=== PATIENT | female | born 1940 | race Caucasian/White ===

== ENCOUNTER 2017-09-10 03:59 | Emergency (ER) | payer MEDICARE ==
[2017-09-10 04:34] LABS: #Basophils 0.1 thou/uL (0.0-0.2); #Eosinphils 0.2 thou/uL (0.0-0.7); #Lymphocytes 2.4 thou/uL (1.20-3.40); #Monocytes 0.5 thou/uL (0.11-0.59); %Basophils 0.9 % (0.0-1.0); %Eosinophils 3.4 % (0.0-10.0); %Lymphocytes 33.2 % (21.0-51.0); %Neutrophils 55.6 % (42.0-75.0); Hemoglobin 11.7 g/dL (12.0-16.0); Mean Corpuscular HGB CONC 34.1 g/dL (32.0-36.0); Mean Corpuscular Hemoglobin 33.8 pg (27.0-31.0); Mean Corpuscular Volume 99.1 fl (81.0-99.0); Mean Platelet Volume 10.4 fL (7.4-10.4); Platelet Count 140 thou/uL (130-400); RBC Distribution Width 12.5 % (11.5-14.5); Red Blood Cell (RBC) Count 3.46 mill/uL (4.20-5.40); White Blood Cell (WBC) Count 7.2 thou/uL (4.8-10.8)
[2017-09-10] MEDS ORDERED: Amlodipine 5 MG TAB ONE (04:43)
[2017-09-10] MEDS ORDERED: CALCIUM GLUCONATE 25 GM TUBE ONE (04:44)
[2017-09-10 04:56] LABS: ALT (SGPT) 43 U/L (8-55); AST (SGOT) 43 U/L (5-34); Albumin 3.7 g/dL (3.4-4.8); Alkaline Phosphatase 72 U/L (40-150); Anion Gap 18 mmol/L (10-20); BUN (Urea Nitrogen) 26 mg/dL (9.8-20.1); Bilirubin, Total 0.3 mg/dL (0.2-1.2); Calc. Creatinine Clearance 0 mL/min (70-130); Calcium 8.9 mg/dL (7.8-10.44); Carbon Dioxide 21 mmol/L (23-31); Chloride 105 mmol/L (98-107); Estimated GFR-MDRD 34; Globulin 3.3 g/dL (2.4-3.5); Glucose 219 mg/dL (83-110); Lipase 40 U/L (8-78); Potassium 4.5 mmol/L (3.5-5.1); Sodium 139 mmol/L (136-145)
[2017-09-10 04:59] LABS: CKMB 1.3 ng/mL (0-6.6); Troponin I 0.023 ng/mL (< 0.028)
[2017-09-10] MEDS ORDERED: Carvedilol 25 MG TAB PO SCH (05:15)
--- NOTE | 2017-09-10 08:07 | RAD ---
PORTABLE CHEST 1 VIEW: DATE: 09/10/17. TIME: 4:56 a.m. HISTORY: Shortness of breath. FINDINGS: Comparison is made with the exam of 02/25/15. There are changes of median sternotomy. The heart is enlarged. The lungs are expanded without confl uent areas of consolidation, pneumothorax, satya pulmonary edema, or large effusions. There is mild pulmonary vascular congestion. POS: [facility]
--- NOTE | 2017-10-03 18:01 | EKG ---
Test Reason : ABD PAIN Blood Pressure : / mmHG Vent. Rate : 064 BPM Atrial Rate : 065 BPM P-R Int : 000 ms QRS Dur : 088 ms QT Int : 456 ms P-R-T Axes : 000 008 082 degrees QTc Int : 470 ms Sinus Anterior infarct , age undetermined Abnormal ECG Confirmed by KELSIE HARLEY D.O. ([id number]), design editor BRIANA SALAZAR ([id number] on 10/03/2017 6:00:40 PM Referred By: VAL HARLEY Confirmed By:KELSIE HARLEY D.O.
== END 2017-09-10 07:15 | disposition home or self-care (01) ==
LOC: ERS 03:59
DX: K29.70 Gastritis, unspecified, without bleeding (principal); I25.10 Atherosclerotic heart disease of native coronary artery without angina pectoris; E11.9 Type 2 diabetes mellitus without complications; I10 Essential (primary) hypertension
CPT/HCPCS: 71045; 80053; 82553; 83605; 83690; 83880; 84484; 85025; 93005

== ENCOUNTER 2019-10-08 00:26 | Observation (INO) | payer MEDICARE ==
[2019-10-08 00:48] LABS: #Basophils 0.1 thou/uL (0.0-0.2); #Eosinphils 0.2 thou/uL (0.0-0.7); #Lymphocytes 1.8 thou/uL (1.20-3.40); #Neutrophils 12.8 thou/uL (1.40-6.50); %Basophils 0.5 % (0.0-1.0); %Lymphocytes 11.1 % (21.0-51.0); %Monocytes 6.1 % (0.0-10.0); %Neutrophils 81.3 % (42.0-75.0); Mean Corpuscular HGB CONC 33.2 g/dL (32.0-36.0); Mean Corpuscular Hemoglobin 32.5 pg (27.0-31.0); Mean Corpuscular Volume 97.6 fL (78.0-98.0); Platelet Count 130 thou/uL (130-400); RBC Distribution Width 12.1 % (11.5-14.5); Red Blood Cell (RBC) Count 3.99 mill/uL (4.20-5.40); White Blood Cell (WBC) Count 15.7 thou/uL (4.8-10.8)
[2019-10-08 01:08] LABS: ALT (SGPT) 36 U/L (8-55); AST (SGOT) 34 U/L (5-34); Albumin 3.9 g/dL (3.4-4.8); Alkaline Phosphatase 105 U/L (40-110); Anion Gap 13 mmol/L (10-20); BUN (Urea Nitrogen) 29 mg/dL (9.8-20.1); Bilirubin, Total 0.4 mg/dL (0.2-1.2); Calc. Creatinine Clearance 0 mL/min (70-130); Calcium 8.7 mg/dL (7.8-10.44); Carbon Dioxide 25 mmol/L (23-31); Chloride 105 mmol/L (98-107); Estimated GFR-MDRD 31; Globulin 2.9 g/dL (2.4-3.5); Glucose 174 mg/dL (83-110); Potassium 4.3 mmol/L (3.5-5.1); Protein, Total 6.8 g/dL (6.0-8.3); Sodium 139 mmol/L (136-145)
[2019-10-08 01:30] LABS: CKMB 1.1 ng/mL (0-6.6)
[2019-10-08] MEDS ORDERED: Furosemide 40 MG/4 ML VIAL ONE (02:13)
[2019-10-08] MEDS ORDERED: Aspirin Chewable 81 MG TAB ONE (02:13)
[2019-10-08 03:51] VITALS: BMI 34.6
[2019-10-08 04:40] LABS: Troponin I 0.034 ng/mL (< 0.028)
[2019-10-08 07:09] LABS: Troponin I 0.034 ng/mL (< 0.028)
[2019-10-08] MEDS ORDERED: Bisacodyl 5 MG TAB PO PRN (07:36)
[2019-10-08] MEDS ORDERED: HYDROcodone/Acetaminophen 5/325 mg Tablet PO PRN (07:36)
[2019-10-08] MEDS ORDERED: Ondansetron PF 4 MG/2 ML Vial IVP PRN (07:36)
[2019-10-08] MEDS ORDERED: Calcium Carbonate 500 MG ChewTAB PO PRN (07:36)
[2019-10-08] MEDS ORDERED: Ondansetron ODT 4 MG TAB PO PRN (07:36)
[2019-10-08] MEDS ORDERED: Acetaminophen 325 MG TAB PO PRN (07:36)
[2019-10-08] MEDS ORDERED: Docusate 100 MG CAP PO PRN (07:38)
[2019-10-08] MEDS ORDERED: Benzonatate 100 MG CAP PO PRN (07:38)
[2019-10-08] MEDS ORDERED: Labetalol HCl 100 MG/20 ML VIAL SLOW IVP PRN (07:38)
[2019-10-08] MEDS ORDERED: Melatonin 3 MG TAB PO PRN (07:38)
[2019-10-08] MEDS ORDERED: diphenhydrAMINE 25 MG CAP PO PRN (07:38)
--- NOTE | 2019-10-08 08:17 | RAD ---
PORTABLE CHEST ONE VIEW: HISTORY: Chest pain. Shortness of breath. COMPARISON: 09/10/2017 FINDINGS: Cardiomegaly with bilateral vascular congestion. Left sided implantable device. Postop midline sterno willa. Minimal stable increased linear and interstitial markings. IMPRESSION: Cardiomegaly with bilateral vascular congestion with little change from prior study. No significant n ew process. POS: [facility]
[2019-10-08] MEDS: Fenofibrate Nanocrystallized 145 MG TAB PO SCH (08:55)
[2019-10-08] MEDS: Aspirin 325 MG TAB PO SCH (08:55)
[2019-10-08] MEDS: Metoprolol Tartrate 25 MG TAB PO SCH ×2 (08:55→09:06)
[2019-10-08] MEDS: Famotidine 20 MG TAB PO SCH ×2 (08:56→20:05)
[2019-10-08] MEDS ORDERED: ADENOSINE 60 MG/20 ML VIAL ONE (13:14)
[2019-10-08] MEDS ORDERED: Furosemide 40 MG/4 ML VIAL SLOW IVP SCH (14:00)
[2019-10-08 14:22] LABS: Bacteria/HPF 3+ HPF (None Seen); Bilirubin Negative (Negative); Blood, Urine 1+ (Negative); Clarity Extra Turbid (Clear); Glucose, Urine (Dipstick) Normal (Negative); Leukocyte 500 Leu/uL (Negative); Nitrite Negative (Negative); Protein, Urine (Dipstick) 20 mg/dL (Neg-Trace); Squamous Epithelial 0-3 HPF (0-3); Urobilinogen Normal mg/dL (Less than 2); WBC/HPF Greater than 50 HPF (0-3)
[2019-10-08 14:29] LABS: Urine Culture Reflex Yes Yes
[2019-10-08] MEDS ORDERED: cefTRIAXone\\ROCEPHIN 1 GM in Sodium Chloride 0.9% 100 ML IVPB SCH (15:00)
--- NOTE | 2019-10-08 15:06 | HP ---
PRIMARY CARE PROVIDER: Joselyn Lazo MD CHIEF COMPLAINT: Shortness of breath and chest pain. HISTORY OF PRESENT ILLNESS: Ms. Christian is a pleasant 79-year-old lady, who was seen at [facility] on 10/08/2019. She reports that around 2130 hours yesterday she started having chest pain and shortness of breath. She was resting at that time. She reports having a similar episode in March or February of 2019. She was in a different state at that time, and reports having a stress test. She describes the pain as pressure-like sensation below both breasts, that is across her chest. It is nonradiating. She does report bilateral shoulder pain, but this is chronic. She also reports shortness of breath as well as new lower extremity edema. She denies any history of congestive heart failure. She received furosemide in the emergency room and reports improvement. REVIEW OF SYSTEMS: All systems were reviewed and found to be negative except for the pertinent positives mentioned above. PAST MEDICAL HISTORY: 1. Coronary artery disease. 2. Diabetes mellitus, type 2. 3. Hypertension. 4. Stage 3 chronic kidney disease. PAST SURGICAL HISTORY: 1. Coronary artery bypass graft. 2. Cholecystectomy. 3. Hysterectomy. PSYCHIATRIC HISTORY: Anxiety and seasonal depression. SOCIAL HISTORY: The patient denies tobacco use, alcohol use, or recreational drug use. FAMILY HISTORY: No family history of premature coronary artery disease. ALLERGIES: NO KNOWN DRUG ALLERGIES. CURRENT MEDICATIONS: These need to be clarified, but in the past, the patient was on: 1. Aspirin. 2. Pepcid. 3. Fenofibrate. 4. Metformin. 5. Metoprolol. PHYSICAL EXAMINATION: GENERAL: On examination, Ms. Christian is awake and alert, not in acute distress. VITAL SIGNS: Blood pressure is 143/65, pulse 100, respiratory rate 16, and oxygen saturation 100% on supplemental oxygen. She is afebrile. BMI is 34.7. EYES: No scleral icterus. No conjunctival pallor. ENT: Moist mucosal membranes. No oropharyngeal erythema or exudates. NECK: Supple, nontender, trachea is midline. RESPIRATORY: Accessory muscles of breathing are not active. Chest wall movements are symmetric bilaterally. Lungs are clear to auscultation without wheeze, rhonchi, or crepitations. CARDIOVASCULAR: S1 and S2 are heard, regular. Peripheral pulses palpable. ABDOMEN: Soft, nontender, bowel sounds are heard. NEUROLOGIC: Cranial nerves 2 through 12 are intact. MUSCULOSKELETAL: Power is 5/5 in all 4 extremities. SKIN: No rashes. She has bilateral lower extremity edema. LYMPHATIC: No cervical lymphadenopathy. PSYCHIATRIC: Normal mood, normal affect, the patient is oriented to person, place, and time. LABORATORY DATA: Ms. Christian's labs and investigations were reviewed. I reviewed her electrocardiogram, which shows normal sinus rhythm, premature ventricular complexes, no ST changes to suggest an acute coronary syndrome. I also reviewed her chest x-ray, which shows cardiomegaly with bilateral vascular congestion. She has elevated BNP of 975.5. Electrolytes are normal. Creatinine is elevated at 1.59, it was 1.58 on 10/04/2019. Troponin-I is in the indeterminate range at 0.034. LFTs are unremarkable. She has leukocytosis with 15,700 white cells, of which 81% are neutrophils. Hemoglobin and platelet count are normal. Urinalysis is positive for leukocyte esterase. Bacteria are also present in the urine. ASSESSMENT AND PLAN: Ms. Christian is a pleasant 79-year-old lady, who was seen at [facility] on 10/08/2019. Her problem list includes: 1. Chest pain: Ms. Christian is presenting with chest pain. She will be admitted to the hospital for telemetry monitoring. Her troponins are in the indeterminate range. I will obtain nuclear stress test. 2. Shortness of breath: Her presentation is consistent with acute congestive heart failure. We will treat her with furosemide and obtain 2D echocardiogram. Cardiology Service also being consulted for opinion and help with management. 3. Urinary tract infection: She will be started on ceftriaxone, I will check her urine culture and adjust antibiotics accordingly. 4. Diabetes mellitus, type 2: I will start her on Accu-Cheks and insulin sliding scale. 5. Hypertension: I will start her on home medications once clarified, monitor vital signs and titrate antihypertensives as needed. Many thanks for allowing me to participate in your patient's care. Please feel free to contact me with any questions or concerns. LEVEL OF RISK: High. LEVEL OF COMPLEXITY: High. Job ID: [id number]
--- NOTE | 2019-10-08 15:22 | NM ---
NUCLEAR MEDICINE CARDIAC SPECT WITH EF AND WALL MOTION: HISTORY: Chest pain. Shortness of breath. Prior coronary artery disease. COMPARISON: 03/01/2015 TECHNIQUE: Nuclear adenosine cardiac SPECT is performed. The patient was injected with 29.9 millicuries technetium 99m sestamibi intravenously for stress imag es and the patient was injected with 9.8 millicuries technetium 99m sestamibi intravenously for resti ng images. FINDINGS: There is some minimal decreased activity in the inferior-posterior wall, possibly representing some m ild infarct changes of a scar. No scan evidence for ischemia. TID: 1.05 LHR: 0.61 EDV: 152 mL EJECTION FRACTION: 47% MYOCARDIAL PERFUSION WALL MOTION: Posterior-inferior wall hypokinesis. IMPRESSION: 1. No scan evidence for overt ischemia. 2. Increased end diastolic volume with 47% ejection fraction and some posterior-inferior wall hypokin esis. POS: [facility]
[2019-10-08] MEDS ORDERED: HumaLOG 300 UNITS/3 ML VIAL SC PRN (17:59)
[2019-10-08] MEDS ORDERED: Dextrose 5% in Water 1,000 ML IV PRN (17:59)
[2019-10-08] MEDS ORDERED: Dextrose 50% Abboject 50 ML SYRINGE SLOW IVP PRN (17:59)
--- NOTE | 2019-10-08 23:44 | CON ---
DATE OF CONSULTATION: HISTORY OF PRESENT ILLNESS: Ms. Karoline Christian is a pleasant 79-year-old white female, who has had 2 previous bypass surgeries. She underwent cardiac catheterization at [facility] in June 2017. This revealed ejection fraction of 50% with inferior hypokinesis. The LAD was totally occluded in its midportion. The circumflex had a 70% 1st obtuse marginal stenosis and the right coronary artery was totally occluded and filled via collaterals from the left. DING to LAD was patent; however, all of her vein grafts were occluded. She also states that approximately 15 months ago that she went to an emergency room in [place] where she was living at that time with chest pain and had a stent placed. She returned for followup to see Dr. Craft 2 days ago. She had been told that she had kidney disease and she stopped taking all of her medications for a year 2 days before being seen. At times, she would feel like "racing heart that would wake her up at night." Last night, she was supine in bed, trying to go to sleep and became acutely short of breath. After 2 hours of the shortness of breath, she went to the emergency room, was given intravenous Lasix and had dramatic improvement in her shortness of breath. Chest x-ray revealed cardiomegaly with bilateral vascular congestion. With this shortness of breath, she had some mild chest discomfort, but the predominant symptom was shortness of breath. Today, she underwent a Cardiolite scan, which revealed posterior-inferior wall hypokinesis and no evidence of ischemia. This is consistent with the totally occluded right coronary artery. Echocardiogram is pending, but has been ordered. PAST MEDICAL HISTORY: Coronary artery disease, hypertension, hyperlipidemia, transient ischemic attack, diabetes, history of myocardial infarction. MEDICATIONS: 1. Aspirin 81 daily. 2. Carvedilol 3.125 b.i.d. 3. Plavix 75 mg at bedtime. 4. Zetia at bedtime. 5. Rosuvastatin, unknown dose daily. 6. Insulin. 7. Sertraline 150 q.i.d. 8. Januvia 1 daily. ALLERGIES: PNEUMOCOCCAL VACCINE. OPERATIONS: Two bypass surgeries, cholecystectomy, hysterectomy, lumbar surgery. SOCIAL HISTORY: She does not currently smoke. PHYSICAL EXAMINATION: VITAL SIGNS: Blood pressure 115/58, pulse 54. HEENT: PERRL. NECK: Supple. CHEST: Reveals crackles at the right base. CARDIOVASCULAR: S1 and S2 normal without any S3, S4, or murmurs. ABDOMEN: Normal bowel sounds without tenderness or organomegaly. EXTREMITIES: Revealed no clubbing, cyanosis, or edema. NEUROLOGIC: Grossly intact. SKIN: Warm and dry. LABORATORY DATA: Hemoglobin 13.0, hematocrit 39.0, white count 44070, platelets 130,000. Sodium 139, potassium 4.3, carbon dioxide 105, BUN 29, creatinine 1.59. Troponin I 0.034. BNP 975.5. Cholesterol 233, triglycerides 123, HDL 59, LDL 149 (apparently she only restarted medications within the last 3 or 4 days). IMAGING: EKG revealed probable junctional rhythm with a rate of 69 per minute, nonspecific ST changes. Cardiolite findings as noted above. Chest x-ray reveals cardiomegaly with increased pulmonary vascularity. IMPRESSION: 1. Coronary artery disease, status post 2 coronary artery bypass grafts and apparent stent placement over the last year. Her Cardiolite finding shows no definite ischemia and only hypokinesis of the inferior wall, which is consistent with her totally occluded right coronary artery. At last catheterization, she only had a patent left inferior mammary artery to the LAD with all vein grafts being occluded. 2. Hypertension. 3. Palpitations, currently would monitor from the office. 4. Currently undergoing evaluation for total right hip replacement by Dr. Nur. RECOMMENDATIONS: Echo is pending. She apparently needs to be on low-dose diuretics. I will start furosemide 20 mg q.a.m. We will continue to follow with you. I also have asked her to try to get the stent card, so that we can know exactly when that was placed. Job ID: [id number] [facility]
[2019-10-09 05:22] LABS: #Basophils 0.1 thou/uL (0.0-0.2); #Eosinphils 0.2 thou/uL (0.0-0.7); #Lymphocytes 2.4 thou/uL (1.20-3.40); #Monocytes 0.9 thou/uL (0.11-0.59); #Neutrophils 5.3 thou/uL (1.40-6.50); %Basophils 1.1 % (0.0-1.0); %Lymphocytes 26.6 % (21.0-51.0); %Monocytes 10.6 % (0.0-10.0); %Neutrophils 59.6 % (42.0-75.0); Hemoglobin 12.5 g/dL (12.0-16.0); Mean Corpuscular HGB CONC 31.9 g/dL (32.0-36.0); Mean Corpuscular Volume 97.2 fL (78.0-98.0); Mean Platelet Volume 11.3 fL (7.4-10.4); Platelet Count 127 thou/uL (130-400); Red Blood Cell (RBC) Count 4.02 mill/uL (4.20-5.40); White Blood Cell (WBC) Count 8.8 thou/uL (4.8-10.8)
[2019-10-09 05:45] LABS: Anion Gap 14 mmol/L (10-20); BUN (Urea Nitrogen) 35 mg/dL (9.8-20.1); Calc. Creatinine Clearance 33 mL/min (70-130); Calcium 8.2 mg/dL (7.8-10.44); Carbon Dioxide 30 mmol/L (23-31); Chloride 101 mmol/L (98-107); Estimated GFR-MDRD 28; Glucose 130 mg/dL (83-110); Potassium 3.5 mmol/L (3.5-5.1); Sodium 141 mmol/L (136-145)
[2019-10-09] MEDS: Famotidine 20 MG TAB PO SCH (08:51)
[2019-10-09] MEDS: Aspirin 325 MG TAB PO SCH (08:51)
[2019-10-09] MEDS: Fenofibrate Nanocrystallized 145 MG TAB PO SCH (08:52)
[2019-10-09] MEDS ORDERED: Furosemide 20 MG TAB PO SCH (09:00)
[2019-10-09 12:08] VITALS: TEMP 98.4
[2019-10-09 16:45] VITALS: BP 141/65
--- NOTE | 2019-10-10 01:08 | DIS ---
DATE OF ADMISSION: 10/08/2019 DATE OF DISCHARGE: 10/09/2019 PRIMARY CARE PROVIDER: Joselyn Lazo MD DISCHARGE DIAGNOSES: 1. Chest pain. 2. Chest pain, most likely secondary to musculoskeletal etiology. 3. Acute congestive heart failure, type unknown. 4. Urinary tract infection. CONDITION OF PATIENT ON THE DAY OF DISCHARGE: Stable. I assessed Ms. Christian on the day of discharge. She denies any chest pain or shortness of breath. Vital signs are stable. S1 and S2 are heard, regular. Lungs are clear to auscultation bilaterally. CONSULTATIONS DURING THIS HOSPITALIZATION: Cardiology, Dr. Armando. DISCHARGE MEDICATIONS: 1. Aspirin 81 mg daily. 2. Coreg 3.125 mg 2 times a day. 3. Plavix 75 mg daily. 4. Ezetimibe 10 mg at bedtime. 5. NovoLog FlexPen insulin as needed. 6. Lantus insulin 20 units at bedtime. 7. Rosuvastatin 40 mg at bedtime. 8. Zoloft 150 mg daily. 9. Januvia 25 mg daily. These were her home medications. New medications started during this hospitalization are: 1. Lasix 20 mg daily. 2. Macrobid 100 mg 2 times a day for 1 week. HOSPITAL COURSE: Ms. Christian is a pleasant 79-year-old lady, who was admitted to [facility] on October 08, 2019, for chest pain and shortness of breath. Please refer to my history and physical note dated October 08, 2019 for further details. She was seen by Cardiology Service. She improved with intravenous diuretics and was switched to oral diuretic. At the time of this dictation, preliminary urine culture is growing presumptive Escherichia coli. She was advised to follow up with primary care provider for final urine culture report. 2D echocardiogram was done during this hospitalization, and the result is pending as well. She was advised to follow up with primary care provider for the same. She had nuclear stress test, which did not show any evidence for ischemia. Left ventricular ejection fraction was 47%. Many thanks for allowing me to participate in your patient's care. Please feel free to contact me with any questions or concerns. DISCHARGE DESTINATION: Home. ACTIVITY: As tolerated. DIET: Diabetic, heart healthy, and low-sodium. Job ID: [id number]
[2019-10-10] MEDS ORDERED: Famotidine 20 MG TAB PO SCH (09:00)
== END 2019-10-09 16:45 | disposition home or self-care (01) ==
LOC: ERS 00:26 → 2SW 02:44
PROVIDERS: ADMIT Internal Medicine; ATTEND Internal Medicine
DX: I13.0 Hypertensive heart and chronic kidney disease with heart failure and stage 1 through stage 4 chronic kidney disease, or unspecified chronic kidney disease (principal); R07.9 Chest pain, unspecified; E11.22 Type 2 diabetes mellitus with diabetic chronic kidney disease; I50.9 Heart failure, unspecified; N18.3 Chronic kidney disease, stage 3 (moderate); I25.10 Atherosclerotic heart disease of native coronary artery without angina pectoris; I25.810 Atherosclerosis of coronary artery bypass graft(s) without angina pectoris; F41.8 Other specified anxiety disorders; N39.0 Urinary tract infection, site not specified; R00.2 Palpitations; I25.2 Old myocardial infarction; Z79.02 Long term (current) use of antithrombotics/antiplatelets; Z79.4 Long term (current) use of insulin; Z79.82 Long term (current) use of aspirin; Z79.899 Other long term (current) drug therapy; Z86.73 Personal history of transient ischemic attack (TIA), and cerebral infarction without residual deficits; Z88.7 Allergy status to serum and vaccine; Z90.49 Acquired absence of other specified parts of digestive tract; Z90.710 Acquired absence of both cervix and uterus; Z95.1 Presence of aortocoronary bypass graft; Z95.5 Presence of coronary angioplasty implant and graft
CPT/HCPCS: 71045; 78452; 80048; 80053; 81001; 82553; 82962 ×2; 83880; 84484 ×2; 85025 ×2; 87077; 87086; 87186; 93005; 93017; 93306; 94760; 96365; 96375; 96376; 97116; 97139; 99285; A9500; G0378 ×3; 36415; 36416; 96374; J0153; J0696; J1940; J3490; Q0163

== ENCOUNTER 2020-01-19 18:10 | Inpatient (IN) | payer MEDICARE, OTHER ==
[2020-01-19] MEDS ORDERED: Acetaminophen 500 MG TAB ONE (18:25)
[2020-01-19] MEDS ORDERED: Azithromycin 500 MG VIAL ONE (18:25)
[2020-01-19 18:52] LABS: #Basophils 0.1 thou/uL (0.0-0.2); #Eosinphils 0.1 thou/uL (0.0-0.7); #Lymphocytes 1.5 thou/uL (1.20-3.40); #Neutrophils 12.3 thou/uL (1.40-6.50); %Basophils 0.4 % (0.0-1.0); %Eosinophils 0.4 % (0.0-10.0); %Neutrophils 82.3 % (42.0-75.0); Hemoglobin 12.7 g/dL (12.0-16.0); Mean Corpuscular HGB CONC 32.7 g/dL (32.0-36.0); Mean Corpuscular Hemoglobin 32.9 pg (27.0-31.0); Mean Platelet Volume 11.2 fL (7.4-10.4); Platelet Count 129 thou/uL (130-400); RBC Distribution Width 12.9 % (11.5-14.5); Red Blood Cell (RBC) Count 3.87 mill/uL (4.20-5.40); White Blood Cell (WBC) Count 14.9 thou/uL (4.8-10.8)
--- NOTE | 2020-01-19 18:59 | RAD ---
Chest AP view INDICATION: Dyspnea COMPARISON: October 08, 2019 FINDINGS: Lungs: There is worsening perihilar interstitial prominence suspicious for underlying interstitial e sara Cardiac silhouette: There is worsening cardiomegaly Pulmonary vasculature: There is worsening moderate pulmonary vascular congestion Pleural spaces: There are tiny bilateral pleural effusions, left greater than right. Upper abdomen: No abnormality seen. Osseous structures: No acute osseous abnormality. Additional findings: The generator pack overlying left chest wall is stable appearing. Post-CABG cherise nge is stable appearing. Endovascular graft overlying the right heart border is stable appearing. IMPRESSION: Findings suspicious for [id number] CHF
[2020-01-19 19:22] LABS: ALT (SGPT) 24 U/L (8-55); AST (SGOT) 30 U/L (5-34); Albumin 3.7 g/dL (3.4-4.8); Alkaline Phosphatase 155 U/L (40-110); Anion Gap 17 mmol/L (10-20); BUN (Urea Nitrogen) 31 mg/dL (9.8-20.1); Bilirubin, Total 1.3 mg/dL (0.2-1.2); Calc. Creatinine Clearance 0 mL/min (70-130); Carbon Dioxide 19 mmol/L (23-31); Chloride 105 mmol/L (98-107); Estimated GFR-MDRD 29; Globulin 2.6 g/dL (2.4-3.5); Glucose 146 mg/dL (83-110); Potassium 4.4 mmol/L (3.5-5.1); Protein, Total 6.3 g/dL (6.0-8.3); Sodium 137 mmol/L (136-145)
[2020-01-19] MEDS ORDERED: cefTRIAXone\\ROCEPHIN 1 GM VIAL ONE (19:29)
[2020-01-19] MEDS ORDERED: Furosemide 40 MG/4 ML VIAL ONE (19:29)
--- NOTE | 2020-01-19 19:38 | PDOC.HHP ---
Hospitalist HPI - History of Present Illness shortness of breath, fever History of Present Illness: Patient is a 79 year old female with PMH CAD, CABG, systolic CHF, DM, sees Dr Craft (Dr Armando last hospitalization) who presents to ED for SOB x 3 days, nonproductive cough, malaise, weakness, febrile to 103 in ED, patient recieved abx and IVF, antiboitics, then got lasix once imaging/labs concerning for CHF. Patient had recent admission in Oct for CHF, had negative stress test, echo w/ ef 40-45 w/ LA dilation and multiple valvular disease, has history of CAD and CABG, in ED troponins elevated as well, lovenox and ASA started, patient to be admitted to telemetry. Covid test ordered and pending. Hospitalist ROS - Medication Medications: list reviewed, see nursing notes and A/P Hospitalist History - Past Medical History Other Medical History: CAD HTN HLD TIA DM CABG history of [place] - Past Surgical History Past Surgical History: reports: Cholecystectomy, CABG (x2), Hysterectomy Other Surgical History: back surgery - Family History Family History: reports: no pertinent history - Social History Smoking Status: Never smoker Drugs: reports: none Hospitalist Results - Labs Result Diagrams: 01/19/20 18:34 01/19/20 18:34 Lab results: WBC 14.9 thou/uL (4.8-10.8) H 01/19/20 18:34 Hgb 12.7 g/dL (12.0-16.0) 01/19/20 18:34 Hct 38.9 % (36.0-47.0) 01/19/20 18:34 MCV 101.0 fL (78.0-98.0) H 01/19/20 18:34 Plt Count 129 thou/uL (130-400) L 01/19/20 18:34 Neutrophils % 82.3 % (42.0-75.0) H 01/19/20 18:34 Sodium 137 mmol/L (136-145) 01/19/20 18:34 Potassium 4.4 mmol/L (3.5-5.1) 01/19/20 18:34 Chloride 105 mmol/L (98-107) 01/19/20 18:34 Carbon Dioxide 19 mmol/L (23-31) L 01/19/20 18:34 BUN 31 mg/dL (9.8-20.1) H 01/19/20 18:34 Creatinine 1.72 mg/dL (0.6-1.1) H 01/19/20 18:34 Glucose 146 mg/dL (83-110) H 01/19/20 18:34 Lactic Acid 2.7 mmol/L (0.5-2.2) H 01/19/20 18:34 Calcium 8.0 mg/dL (7.8-10.44) 01/19/20 18:34 Total Bilirubin 1.3 mg/dL (0.2-1.2) H 01/19/20 18:34 AST 30 U/L (5-34) 01/19/20 18:34 ALT 24 U/L (8-55) 01/19/20 18:34 Alkaline Phosphatase 155 U/L (40-110) H 01/19/20 18:34 Troponin I 0.412 ng/mL (< 0.028) H* 01/19/20 18:34 B-Natriuretic Peptide 1654.5 pg/mL (0-100) H 01/19/20 18:34 Serum Total Protein 6.3 g/dL (6.0-8.3) 01/19/20 18:34 Albumin 3.7 g/dL (3.4-4.8) 01/19/20 18:34 Additional comment: VITAL SIGNS Claire January 19, 2020 19:34 RICHARD Goldman, Sonia BP: 105/67 MAP: 79 Pulse: 86 Resp: 21 Temp: 101.8 (Oral) Pain: 0 O2 sat: 98 on (2L Oxygen) Time: 01/19/2020 19:34. CXr w/ cardiomegaly and post CABG findings, vascular congestion XR Chest 1 View Portable Observe DT: Claire January 19, 2020 18:21 CXRP Chest AP view INDICATION: Dyspnea COMPARISON: October 08, 2019 FINDINGS: Lungs: There is worsening perihilar interstitial prominence suspicious for underlying interstitial e sara Cardiac silhouette: There is worsening cardiomegaly Pulmonary vasculature: There is worsening moderate pulmonary vascular congestion Pleural spaces: There are tiny bilateral pleural effusions, left greater than right. Upper abdomen: No abnormality seen. Osseous structures: No acute osseous abnormality. Additional findings: The generator pack overlying left chest wall is stable appearing. Post-CABG cherise nge is stable appearing. Endovascular graft overlying the right heart border is stable appearing. IMPRESSION: Findings suspicious for [id number] CHF Reported By: Moustapha Ferrara - EKG Interpretation EKG: NSR [address] changes or dropped beats ,QTc 410s, MN 110s Hospitalist H&P A/P - Plan Plan: Patient is a 79 year old female with PMH CAD, CABG, systolic CHF, DM, sees Dr Craft (Dr Armando last hospitalization) who presents to ED for SOB x 3 days, nonproductive cough, malaise, weakness, febrile to 103 in ED. # acute and chronic systolic history of CHF - echo last admission w/ EF 40-45% and disease of all 4 valves, Dr Armando saw previously and had negative stress test - consult cardiology given elevated troponin and acute and chronic chf CHF - start lasix 40mg IV BID, (on lasix 20mg PO daily since last admission) - trend troponin - ASA, lovenox until NSTEMI ruled out by cardiology, continue home coreg, plavix , statin # possible pneumonia and/or covid rule out # sepsis due to possible pneumonia or covid infection - continue abx (azithro/ceftriaxone), follow cultures, follow covid rule out test # elevated troponin - likely secondary to CHF exacerbation, consult cardiology and continue BELLA with meds as above # history of CAD - as above # HTN - PRN medications ordered, continue home meds # palpitaitons - no diagnoses as of last admission # DM - hold home januvia, ezetimibe, continue home lantus, SSI ordered # mood disorder - continue home meds # thrombocytopenia - noted, trend CBC monitor closely while on anticoagulation # elevated lactic acid - rule out sepsis as above, and treat CHF as above # ADAN - rule out sepsis as above, possibly an element of prerenal ADAN, trend BMP and I/Os and continue lasix # DVT ppx - lovenox, asa, plavix # GI ppx code status - full
[2020-01-19 19:40] LABS: CKMB 1.1 ng/mL (0-6.6)
[2020-01-19 19:43] LABS: Protein, Urine (Dipstick) > or equal to 300 mg/dL (Neg-Trace)
[2020-01-19 19:45] LABS: Clarity Hazy (Clear)
[2020-01-19 19:46] LABS: Bilirubin Unable to Interpret (Negative); Glucose, Urine (Dipstick) Unable to Interpret mg/dL (Negative); Leukocyte Large Leu/uL (Negative); Nitrite Unable to Interpret (Negative); Urobilinogen UNABLE TO INTERPRET mg/dL (Less than 2)
[2020-01-19 19:48] LABS: Blood, Urine Moderate (Negative)
[2020-01-19] MEDS ORDERED: Enoxaparin Sodium 100 MG/ML SYRINGE ONE (19:48)
[2020-01-19] MEDS ORDERED: Aspirin 325 MG TAB ONE (19:48)
[2020-01-19 19:51] LABS: WBC/HPF Greater Than 50 HPF (0-3)
[2020-01-19 19:52] LABS: Bacteria/HPF 4+ HPF (None Seen)
[2020-01-19] MEDS ORDERED: Dextrose 50% Abboject 50 ML SYRINGE SLOW IVP PRN (21:08)
[2020-01-19] MEDS ORDERED: Dextrose 5% in Water 1,000 ML IV PRN (21:08)
[2020-01-19] MEDS ORDERED: Labetalol HCl 100 MG/20 ML VIAL SLOW IVP PRN (21:09)
[2020-01-19] MEDS ORDERED: Ondansetron PF 4 MG/2 ML Vial IVP PRN (21:09)
[2020-01-19] MEDS ORDERED: Promethazine HCl 12.5 MG in Sodium Chloride 0.9% 50 ML IVPB PRN (21:09)
[2020-01-19] MEDS ORDERED: hydrALAZINE 20 MG/ML VIAL SLOW IVP PRN (21:09)
[2020-01-19] MEDS ORDERED: cloNIDine 0.1 MG TAB PO PRN (21:09)
[2020-01-19] MEDS ORDERED: Morphine 2 MG/ML SYRINGE SLOW IVP PRN (21:09)
[2020-01-19] MEDS ORDERED: Guaifenesin DM 100-10/5 ML UDCUP PO PRN (21:12)
[2020-01-19] MEDS ORDERED: HYDROcodone/Acetaminophen 5/325 mg Tablet PO PRN (21:12)
[2020-01-19] MEDS ORDERED: Senokot S 8.6-50 MG TAB PO PRN (21:12)
[2020-01-19] MEDS ORDERED: Bisacodyl 5 MG TAB PO PRN (21:12)
[2020-01-19] MEDS ORDERED: Bisacodyl 10 MG SUPP PR PRN (21:12)
[2020-01-19 22:22] LABS: Lactic Acid 1.1 mmol/L (0.5-2.2)
[2020-01-19 22:36] LABS: Troponin I 0.449 ng/mL (< 0.028)
[2020-01-20 02:11] LABS: Critical Call Chem Troponin I RESULT DECREASING; Troponin I 0.365 ng/mL (< 0.028)
[2020-01-20 05:11] LABS: #Basophils 0.1 thou/uL (0.0-0.2); #Eosinphils 0.1 thou/uL (0.0-0.7); #Lymphocytes 0.9 thou/uL (1.20-3.40); #Monocytes 0.9 thou/uL (0.11-0.59); #Neutrophils 9.4 thou/uL (1.40-6.50); %Basophils 0.5 % (0.0-1.0); %Eosinophils 0.7 % (0.0-10.0); %Lymphocytes 8.2 % (21.0-51.0); %Monocytes 7.5 % (0.0-10.0); %Neutrophils 83.1 % (42.0-75.0); Hemoglobin 11.4 g/dL (12.0-16.0); Mean Corpuscular HGB CONC 32.1 g/dL (32.0-36.0); Mean Corpuscular Hemoglobin 32.6 pg (27.0-31.0); Mean Platelet Volume 11.8 fL (7.4-10.4); Platelet Count 119 thou/uL (130-400); Red Blood Cell (RBC) Count 3.49 mill/uL (4.20-5.40); White Blood Cell (WBC) Count 11.3 thou/uL (4.8-10.8)
[2020-01-20 05:23] LABS: Anion Gap 16 mmol/L (10-20); BUN (Urea Nitrogen) 30 mg/dL (9.8-20.1); Calc. Creatinine Clearance 36 mL/min (70-130); Carbon Dioxide 19 mmol/L (23-31); Chloride 106 mmol/L (98-107); Estimated GFR-MDRD 28; Glucose 142 mg/dL (83-110); Magnesium 1.6 mg/dL (1.6-2.6); Potassium 3.8 mmol/L (3.5-5.1); Sodium 137 mmol/L (136-145)
[2020-01-20] MEDS: Furosemide 40 MG/4 ML VIAL SLOW IVP SCH ×2 (05:37→13:02)
[2020-01-20] MEDS: Acetaminophen 325 MG TAB PO PRN ×2 (05:55→20:23)
[2020-01-20] MEDS: Famotidine 20 MG TAB PO SCH (08:48)
[2020-01-20] MEDS: Aspirin 81 mg Enteric Coated Tablet PO SCH (08:48)
[2020-01-20] MEDS ORDERED: Polyethylene Glycol 3350 17 GM Packet PO SCH (09:00)
[2020-01-20] MEDS ORDERED: Carvedilol 3.125 MG TAB PO SCH (09:00)
[2020-01-20] MEDS ORDERED: Azithromycin 250 MG TAB PO SCH (09:00)
[2020-01-20 10:44] LABS: SARS-CoV-2 MS2 Positive; SARS-CoV-2 N Gene Negative; SARS-CoV-2 S Gene Negative; SARS-CoV-2 orf1ab Negative
[2020-01-20 13:00] LABS: Bilirubin Negative (Negative); Blood, Urine 1+ (Negative); Clarity Clear (Clear); Glucose, Urine (Dipstick) Normal (Negative); Leukocyte 25 Leu/uL (Negative); Nitrite Negative (Negative); Protein, Urine (Dipstick) Negative (Neg-Trace); RBC/HPF 0-3 HPF (0-3); Squamous Epithelial 0-3 HPF (0-3); Urobilinogen Normal mg/dL (Less than 2)
[2020-01-20 13:01] LABS: Bacteria/HPF 1+ HPF (None Seen)
[2020-01-20 13:02] LABS: Urine Culture Reflex Yes Yes
[2020-01-20] MEDS: HumaLOG 300 UNITS/3 ML VIAL SC PRN (13:03)
[2020-01-20] MEDS: Carvedilol 6.25 MG TAB PO SCH (16:35)
[2020-01-20] MEDS: hydrALAZINE 25 MG TAB PO SCH ×2 (16:35→20:23)
[2020-01-20 16:49] LABS: Platelet Count 112 thou/uL (130-400)
--- NOTE | 2020-01-20 18:52 | PDOC.HOSPP ---
- Subjective Encounter Date: 01/20/20 Encounter Time: 08:30 Subjective: no overnight events. This morning, endorses feeling better overall. breathing much improved. - Objective Vital Signs & Weight: Vital Signs (12 hours) Temp Pulse Pulse Pulse Resp BP BP 01/20/20 16:35 74 132/82 01/20/20 15:42 98.8 F 74 18 01/20/20 13:51 70 74 145/60 H 01/20/20 11:42 98.6 F 68 18 01/20/20 08:55 98.5 F 80 20 BP BP BP Pulse Ox Pulse Ox 01/20/20 16:35 01/20/20 15:42 156/71 H 97 01/20/20 13:51 153/67 H 96 01/20/20 11:42 112/53 L 97 01/20/20 08:55 193/82 H 96 Weight Weight 190 lb 6.4 oz I&O: 01/19/20 01/20/20 01/21/20 06:59 06:59 06:59 Intake Total 300 240 Output Total 800 1150 Balance -500 -910 Result Diagrams: 01/20/20 16:36 01/20/20 16:36 Additional Labs: Accuchecks 01/20/20 01/20/20 01/19/20 17:17 11:47 22:37 POC Glucose 153 H 254 H 132 H Hospitalist ROS - Review of Systems Constitutional: denies: fever, chills, sweats, weakness, malaise, other Respiratory: denies: cough, dry, shortness of breath, hemoptysis, SOB with excertion, pleuritic pain, sputum, wheezing, other Cardiovascular: reports: orthopnea, paroxysmal noc. dyspnea, edema. denies: chest pain, palpitations, light headedness, other Gastrointestinal: denies: nausea, vomiting, abdominal pain, diarrhea, constipation, melena, hematochezia, other Genitourinary: denies: dysuria, frequency, incontinence, hematuria, retention, other - Medication Medications: Active Medications Generic Name Dose Route Start Last Admin Trade Name Freq PRN Reason Stop Dose Admin Acetaminophen 650 mg 01/19/20 21:12 01/20/20 05:55 Tylenol PO 650 mg Q4H PRN Administration Headache/Fever/Mild Pain (1-3) Aspirin 81 mg 01/20/20 09:00 01/20/20 08:48 Ecotrin PO 81 mg DAILY STEPHEN Administration Carvedilol 12.5 mg 01/20/20 17:00 01/20/20 16:35 Coreg PO 12.5 mg BID-WM STEPHEN Administration Famotidine 20 mg 01/20/20 09:00 01/20/20 08:48 Pepcid PO 20 mg QAM STEPHEN Administration Hydralazine HCl 25 mg 01/20/20 15:00 01/20/20 16:35 Apresoline PO Not Given TID STEPHEN Insulin Human Lispro 0 units 01/19/20 21:08 01/20/20 13:03 Humalog SC 6 unit .MODERATE SLIDING SC PRN Administration Moderate Correctional Scale Ondansetron HCl 4 mg 01/19/20 21:09 01/20/20 17:20 Zofran IVP 4 mg Q6H PRN Administration Nausea/Vomiting use 1st Sertraline HCl 150 mg 01/20/20 09:00 01/20/20 08:48 Zoloft PO 150 mg DAILY STEPHEN Administration - Exam General Appearance: NAD, awake alert Heart: RRR, no murmur, no gallops, no rubs, normal peripheral pulses Respiratory: CTAB, no wheezes, no rales, no ronchi, normal chest expansion, no tachypnea, normal percussion Gastrointestinal: soft, non-tender, non-distended, normal bowel sounds, no palpable masses, no hepatomegaly, no splenomegaly, no bruit Extremities: 2+ LE edema Psychiatric: normal affect, normal behavior, A&O x 3 Hosp A/P - Plan #complicated E.coli UTI #E. Coli bacteremia responding to treatment, continue ABx pending susceptibilities #NSTEMI #Decompensated HF -Responding to diuresis -rest of management per cardiology ELOS: 2 midnights
[2020-01-20] MEDS: cefTRIAXone\\ROCEPHIN 1 GM in Sodium Chloride 0.9% 100 ML IVPB SCH (20:16)
[2020-01-20] MEDS: Rosuvastatin 20 MG TAB PO SCH (20:23)
[2020-01-20] MEDS: Clopidogrel Bisulfate 75 MG TAB PO SCH (20:23)
[2020-01-20] MEDS: Enoxaparin Sodium 40 MG/0.4 ML SYRINGE SC SCH (20:26)
[2020-01-20] MEDS ORDERED: Enoxaparin Sodium 100 MG/ML SYRINGE SC SCH (21:00)
[2020-01-20] MEDS ORDERED: Non-Formulary Item 1 EACH (Insulin Glargine,Hum.Rec.Anlog [Lantus Solostar] 20 UNITS) SQ SCH (21:00)
[2020-01-20] MEDS: Insulin Glargine 20 UNITS in Pre-Filled Syringe 1 EACH SC SCH (21:09)
--- NOTE | 2020-01-20 22:24 | CON ---
DATE OF CONSULTATION: 01/20/2020 HISTORY OF PRESENT ILLNESS: Ms. Christian is a very pleasant 79-year-old woman admitted with urosepsis, found to have some increased troponin and decompensated heart failure. Ms. Christian has a long cardiac history, previous bypass surgery. She did undergo cardiac catheterization in 2017 showing she had a patent internal mammary to LAD, occluded right with no graft, long lesion in a small diameter circumflex with no graft, collateral flow to the right coronary from the LAD. Medical therapy is the appropriate therapy. She was admitted with heart failure to the hospital earlier this year. She did undergo stress testing, which did not show ischemia. Ejection fraction 47%. An old infarct in the inferior wall. The patient was admitted to the hospital with fever, chills, found to be uroseptic, is feeling better now. She is not short of breath currently. MEDICATIONS: At home, she is on; 1. Coreg 3.125 mg twice a day. 2. Aspirin. 3. Plavix. 4. Statin. 5. Zetia. As outlined in the chart. REVIEW OF SYSTEMS: CONSTITUTIONAL: No significant weight gain or loss. VISION: No changes. HEARING: No changes. PULMONARY: No cough or wheezing. GASTROINTESTINAL: No nausea, vomiting, or diarrhea. SKIN: No rashes. PHYSICAL EXAMINATION: VITAL SIGNS: Her blood pressure variable 193/82 earlier, but now 112/53, pulse 68 and regular. LUNGS: Clear. CARDIAC: Normal S1 and normal S2. I do not hear murmur, rub, or gallop. ABDOMEN: Soft, nontender. EXTREMITIES: No clubbing or cyanosis. Currently, no edema. PERTINENT LABORATORY DATA: Creatinine is 1.73, it was 1.76 in October. Chest x-ray shows pulmonary congestion and cardiomegaly. Troponin level 0.449. Non-ST elevation infarction due to demand ischemia. ASSESSMENT: 1. Urosepsis. 2. Non-elevation infarction due to demand ischemia. 3. Renal failure stage 4 with creatinine of 1.73. 4. Diabetes. PLAN: 1. Agree with increasing Coreg to 12.5 mg twice a day. 2. Change to oral diuretics tomorrow. 3. We will add low-dose FREDA inhibitor tomorrow. 4. Continue carvedilol. No other recommendations. Dr. Alexander will be on-call this weekend to see if needed. Job ID: [id number]
[2020-01-21 05:01] LABS: #Eosinphils 0.1 thou/uL (0.0-0.7); #Lymphocytes 1.1 thou/uL (1.20-3.40); #Monocytes 0.6 thou/uL (0.11-0.59); #Neutrophils 5.2 thou/uL (1.40-6.50); %Basophils 0.6 % (0.0-1.0); %Eosinophils 1.7 % (0.0-10.0); %Lymphocytes 15.4 % (21.0-51.0); %Monocytes 8.4 % (0.0-10.0); %Neutrophils 73.9 % (42.0-75.0); Mean Corpuscular HGB CONC 32.1 g/dL (32.0-36.0); Mean Corpuscular Hemoglobin 31.9 pg (27.0-31.0); Mean Corpuscular Volume 99.5 fL (78.0-98.0); Mean Platelet Volume 10.5 fL (7.4-10.4); Platelet Count 82 thou/uL (130-400); RBC Distribution Width 12.9 % (11.5-14.5); Red Blood Cell (RBC) Count 3.45 mill/uL (4.20-5.40)
[2020-01-21 05:12] LABS: Anion Gap 13 mmol/L (10-20); BUN (Urea Nitrogen) 33 mg/dL (9.8-20.1); Calc. Creatinine Clearance 27 mL/min (70-130); Calcium 7.7 mg/dL (7.8-10.44); Carbon Dioxide 21 mmol/L (23-31); Chloride 103 mmol/L (98-107); Estimated GFR-MDRD 20; Glucose 127 mg/dL (83-110); Magnesium 1.8 mg/dL (1.6-2.6); Potassium 3.4 mmol/L (3.5-5.1); Sodium 134 mmol/L (136-145)
[2020-01-21] MEDS: Torsemide 20 MG TAB PO SCH (09:05)
[2020-01-21] MEDS: Lisinopril 2.5 MG TAB PO SCH (09:05)
[2020-01-21] MEDS: Aspirin 81 mg Enteric Coated Tablet PO SCH (09:05)
[2020-01-21] MEDS: Famotidine 20 MG TAB PO SCH (09:05)
[2020-01-21] MEDS: HumaLOG 300 UNITS/3 ML VIAL SC PRN (11:22)
--- NOTE | 2020-01-21 14:56 | PDOC.HOSPP ---
- Subjective Encounter Date: 01/21/20 Encounter Time: 07:30 Subjective: no overnight events. this morning, feeling better and has no complaints. - Objective Vital Signs & Weight: Vital Signs (12 hours) Temp Pulse Pulse Pulse Pulse Resp BP 01/21/20 12:46 59 L 63 65 01/21/20 11:13 98.4 F 71 20 01/21/20 09:05 58 L 105/58 L 01/21/20 07:25 01/21/20 07:18 98.6 F 58 L 18 01/21/20 03:30 97.4 F L 62 16 BP BP BP BP BP Pulse Ox 01/21/20 12:46 110/70 139/63 138/62 01/21/20 11:13 137/59 L 94 L 01/21/20 09:05 01/21/20 07:25 93 L 01/21/20 07:18 105/58 L 93 L 01/21/20 03:30 114/55 L 93 L Weight Weight 186 lb 6.4 oz I&O: 01/20/20 01/21/20 01/22/20 06:59 06:59 06:59 Intake Total 300 580 480 Output Total 800 1450 100 Balance -500 -870 380 Result Diagrams: 01/21/20 04:50 01/21/20 04:50 Additional Labs: Accuchecks 01/21/20 01/21/20 01/20/20 10:46 05:18 20:18 POC Glucose 208 H 185 H 153 H 01/20/20 17:17 POC Glucose 153 H Hospitalist ROS - Review of Systems Constitutional: reports: fever. denies: chills, sweats Respiratory: denies: cough, dry, shortness of breath, hemoptysis, SOB with excertion Cardiovascular: denies: chest pain, palpitations, orthopnea, paroxysmal noc. dyspnea, edema Gastrointestinal: denies: nausea, vomiting, abdominal pain, diarrhea, constipation - Medication Medications: Active Medications Generic Name Dose Route Start Last Admin Trade Name Freq PRN Reason Stop Dose Admin Acetaminophen 650 mg 01/19/20 21:12 01/20/20 20:23 Tylenol PO 650 mg Q4H PRN Administration Headache/Fever/Mild Pain (1-3) Aspirin 81 mg 01/20/20 09:00 01/21/20 09:05 Ecotrin PO 81 mg DAILY STEPHEN Administration Carvedilol 12.5 mg 01/20/20 17:00 01/20/20 16:35 Coreg PO 12.5 mg BID-WM STEPHEN Administration Clopidogrel Bisulfate 75 mg 01/20/20 21:00 01/20/20 20:23 Plavix PO 75 mg HS STEPHEN Administration Enoxaparin Sodium 40 mg 01/20/20 21:00 01/20/20 20:26 Lovenox SC 40 mg 2100 STEPHEN Administration Famotidine 20 mg 01/20/20 09:00 01/21/20 09:05 Pepcid PO 20 mg QAM STEPHEN Administration Hydralazine HCl 25 mg 01/20/20 15:00 01/20/20 20:23 Apresoline PO Not Given TID STEPHEN Ceftriaxone Sodium 1 gm/ 100 mls @ 200 mls/hr 01/20/20 20:00 01/20/20 20:16 Sodium Chloride IVPB 100 mls Q24HR STEPHEN Administration Insulin Glargine 20 units/ 0.2 mls @ 0 mls/hr 01/20/20 21:00 01/20/20 21:09 Miscellaneous Medication SC 0.2 mls HS STEPHEN Administration Insulin Human Lispro 0 units 01/19/20 21:08 01/21/20 11:22 Humalog SC 4 unit .MODERATE SLIDING SC PRN Administration Moderate Correctional Scale Lisinopril 2.5 mg 01/21/20 09:00 01/21/20 09:05 Zestril PO 2.5 mg DAILY STEPHEN Administration Ondansetron HCl 4 mg 01/19/20 21:09 01/20/20 17:20 Zofran IVP 4 mg Q6H PRN Administration Nausea/Vomiting use 1st Rosuvastatin Calcium 40 mg 01/20/20 21:00 01/20/20 20:23 Crestor PO 40 mg HS STEPHEN Administration Sertraline HCl 150 mg 01/20/20 09:00 01/21/20 09:05 Zoloft PO 150 mg DAILY STEPHEN Administration Torsemide 20 mg 01/21/20 09:00 01/21/20 09:05 Demadex PO 20 mg DAILY STEPHEN Administration - Exam General Appearance: NAD, awake alert Heart: RRR, no murmur, no gallops, no rubs Respiratory: CTAB, no wheezes, no rales, no ronchi Gastrointestinal: soft, non-tender, non-distended, normal bowel sounds Extremities: no edema Psychiatric: normal affect, normal behavior, A&O x 3 Hosp A/P - Plan #complicated E.coli UTI #E. Coli bacteremia responding to treatment, continue ABx pending susceptibilities #NSTEMI #Decompensated HF -Responding to diuresis -rest of management per cardiology ELOS: 1 midnight
--- NOTE | 2020-01-21 15:10 | EKG ---
Test Reason : Blood Pressure : / mmHG Vent. Rate : 093 BPM Atrial Rate : 093 BPM P-R Int : 116 ms QRS Dur : 096 ms QT Int : 330 ms P-R-T Axes : 000 -07 124 degrees QTc Int : 410 ms * Pediatric ECG Analysis * Normal sinus rhythm Left axis deviation Low voltage QRS Nonspecific T wave abnormality Confirmed by JUANA LANDRY, NICHO Fleming ([id number]), copy editor GISELA BARROW ([id number]) on 01/21/2020 3:10:10 PM Referred By: Confirmed By:NICHO ARIAS MD
[2020-01-21] MEDS: Rosuvastatin 20 MG TAB PO SCH (20:06)
[2020-01-21] MEDS: Clopidogrel Bisulfate 75 MG TAB PO SCH (20:07)
[2020-01-21] MEDS: Insulin Glargine 20 UNITS in Pre-Filled Syringe 1 EACH SC SCH (20:11)
[2020-01-21] MEDS: cefTRIAXone\\ROCEPHIN 1 GM in Sodium Chloride 0.9% 100 ML IVPB SCH (20:11)
[2020-01-21] MEDS: Enoxaparin Sodium 40 MG/0.4 ML SYRINGE SC SCH (20:11)
[2020-01-22 04:56] LABS: #Eosinphils 0.1 thou/uL (0.0-0.7); #Lymphocytes 1.2 thou/uL (1.20-3.40); #Monocytes 0.9 thou/uL (0.11-0.59); #Neutrophils 5.7 thou/uL (1.40-6.50); %Basophils 0.3 % (0.0-1.0); %Lymphocytes 14.7 % (21.0-51.0); %Monocytes 11.4 % (0.0-10.0); %Neutrophils 72.6 % (42.0-75.0); Hemoglobin 11.9 g/dL (12.0-16.0); Mean Corpuscular HGB CONC 32.1 g/dL (32.0-36.0); Mean Corpuscular Hemoglobin 32.2 pg (27.0-31.0); Mean Platelet Volume 11.3 fL (7.4-10.4); Platelet Count 105 thou/uL (130-400); RBC Distribution Width 13.1 % (11.5-14.5); Red Blood Cell (RBC) Count 3.69 mill/uL (4.20-5.40); White Blood Cell (WBC) Count 7.9 thou/uL (4.8-10.8)
[2020-01-22 05:14] LABS: Anion Gap 16 mmol/L (10-20); Calc. Creatinine Clearance 23 mL/min (70-130); Calcium 7.6 mg/dL (7.8-10.44); Carbon Dioxide 20 mmol/L (23-31); Chloride 100 mmol/L (98-107); Estimated GFR-MDRD 17; Glucose 134 mg/dL (83-110); Magnesium 1.9 mg/dL (1.6-2.6); Potassium 3.8 mmol/L (3.5-5.1); Sodium 132 mmol/L (136-145)
[2020-01-22] MEDS: Famotidine 20 MG TAB PO SCH (09:17)
[2020-01-22] MEDS: Lisinopril 2.5 MG TAB PO SCH (09:17)
[2020-01-22] MEDS: Aspirin 81 mg Enteric Coated Tablet PO SCH (09:17)
[2020-01-22] MEDS: Torsemide 20 MG TAB PO SCH (09:18)
--- NOTE | 2020-01-22 10:50 | PDOC.HOSPP ---
- Subjective Encounter Date: 01/22/20 Encounter Time: 08:00 Subjective: no overnight events with exception of inability to sleep. Requested to avoid unnecessary lab draws due to fatigue. otherwise no complaints. - Objective Vital Signs & Weight: Vital Signs (12 hours) Temp Pulse Resp BP BP Pulse Ox 01/22/20 09:17 64 01/22/20 07:12 98.0 F 64 16 149/61 H 93 L 01/22/20 03:25 98.2 F 57 L 17 143/70 H 95 01/21/20 23:25 97.8 F 56 L 15 126/57 L 95 Weight Weight 187 lb I&O: 01/21/20 01/22/20 01/23/20 06:59 06:59 06:59 Intake Total 580 1470 240 Output Total 1450 400 Balance -870 1070 240 Result Diagrams: 01/22/20 04:24 01/22/20 04:24 Additional Labs: Accuchecks 01/21/20 01/21/20 01/21/20 20:13 15:41 10:46 POC Glucose 230 H 178 H 208 H Hospitalist ROS - Review of Systems Constitutional: denies: fever, chills, sweats, weakness, malaise, other Respiratory: denies: cough, dry, shortness of breath, hemoptysis, SOB with excertion, pleuritic pain, sputum, wheezing, other Cardiovascular: denies: chest pain, palpitations, orthopnea, paroxysmal noc. dyspnea, edema, light headedness, other Gastrointestinal: denies: nausea, vomiting, abdominal pain, diarrhea, constipation, melena, hematochezia, other Genitourinary: denies: dysuria, frequency, incontinence, hematuria, retention, other - Medication Medications: Active Medications Generic Name Dose Route Start Last Admin Trade Name Freq PRN Reason Stop Dose Admin Acetaminophen 650 mg 01/19/20 21:12 01/20/20 20:23 Tylenol PO 650 mg Q4H PRN Administration Headache/Fever/Mild Pain (1-3) Aspirin 81 mg 01/20/20 09:00 01/22/20 09:17 Ecotrin PO 81 mg DAILY STEPHEN Administration Carvedilol 12.5 mg 01/20/20 17:00 01/20/20 16:35 Coreg PO 12.5 mg BID- STEPHEN Administration Clopidogrel Bisulfate 75 mg 01/20/20 21:00 01/21/20 20:07 Plavix PO 75 mg HS STEPHEN Administration Enoxaparin Sodium 40 mg 01/20/20 21:00 01/21/20 20:11 Lovenox SC Not Given 2100 STEPHEN Famotidine 20 mg 01/20/20 09:00 01/22/20 09:17 Pepcid PO 20 mg QAM STEPHEN Administration Hydralazine HCl 25 mg 01/20/20 15:00 01/20/20 20:23 Apresoline PO Not Given TID STEPHEN Ceftriaxone Sodium 1 gm/ 100 mls @ 200 mls/hr 01/20/20 20:00 01/21/20 20:11 Sodium Chloride IVPB 100 mls Q24HR STEPHEN Administration Insulin Glargine 20 units/ 0.2 mls @ 0 mls/hr 01/20/20 21:00 01/21/20 20:11 Miscellaneous Medication SC 0.2 mls HS STEPHEN Administration Insulin Human Lispro 0 units 01/19/20 21:08 01/21/20 11:22 Humalog SC 4 unit .MODERATE SLIDING SC PRN Administration Moderate Correctional Scale Lisinopril 2.5 mg 01/21/20 09:00 01/22/20 09:17 Zestril PO 2.5 mg DAILY STEPHEN Administration Ondansetron HCl 4 mg 01/19/20 21:09 01/20/20 17:20 Zofran IVP 4 mg Q6H PRN Administration Nausea/Vomiting use 1st Rosuvastatin Calcium 40 mg 01/20/20 21:00 01/21/20 20:06 Crestor PO 40 mg HS STEPHEN Administration Sertraline HCl 150 mg 01/20/20 09:00 01/22/20 09:18 Zoloft PO 150 mg DAILY STEPHEN Administration Torsemide 20 mg 01/21/20 09:00 01/22/20 09:18 Demadex PO 20 mg DAILY STEPHEN Administration - Exam General Appearance: NAD, awake alert Heart: RRR, no murmur, no gallops, no rubs Respiratory: CTAB, no wheezes, no rales, no ronchi Gastrointestinal: soft, non-tender, non-distended, normal bowel sounds Extremities: no edema Psychiatric: normal affect, normal behavior, A&O x 3 Hosp A/P - Plan #complicated E.coli UTI #E. Coli bacteremia pansusceptible; will transition to oral medications on discharge considering prompt defervecsence for a total treatment duration of a week. #ADAN -likely prerenal considering diuresis and former repeated bowel movements while on bowel regimen -hold lisinopril -continue to follow #NSTEMI #Decompensated HF -Responding to diuresis; currently euvolemic -continue same regimen; hold lisinopril for ADAN ELOS: 1 midnight
[2020-01-22] MEDS: HumaLOG 300 UNITS/3 ML VIAL SC SCH ×2 (11:55→17:40)
[2020-01-22] MEDS: cefTRIAXone\\ROCEPHIN 1 GM in Sodium Chloride 0.9% 100 ML IVPB SCH (20:31)
[2020-01-22] MEDS: Insulin Glargine 20 UNITS in Pre-Filled Syringe 1 EACH SC SCH (20:32)
[2020-01-22] MEDS: Clopidogrel Bisulfate 75 MG TAB PO SCH (20:32)
[2020-01-22] MEDS: Rosuvastatin 20 MG TAB PO SCH (20:32)
[2020-01-22] MEDS: Enoxaparin Sodium 40 MG/0.4 ML SYRINGE SC SCH (20:32)
[2020-01-22] MEDS: hydrALAZINE 25 MG TAB PO SCH (20:51)
[2020-01-22] MEDS ORDERED: Melatonin 3 MG TAB PO SCH (21:00)
[2020-01-23 04:06] VITALS: BMI 35.7
[2020-01-23] MEDS: HumaLOG 300 UNITS/3 ML VIAL SC SCH ×2 (08:38→12:51)
[2020-01-23] MEDS: hydrALAZINE 25 MG TAB PO SCH ×2 (08:42→14:44)
[2020-01-23] MEDS: Famotidine 20 MG TAB PO SCH (08:42)
[2020-01-23] MEDS: Aspirin 81 mg Enteric Coated Tablet PO SCH (08:42)
[2020-01-23] MEDS: Torsemide 20 MG TAB PO SCH (08:43)
[2020-01-23] MEDS: Carvedilol 6.25 MG TAB PO SCH (08:44)
[2020-01-23 08:58] LABS: Hemoglobin 11.3 g/dL (12.0-16.0); Platelet Count 115 thou/uL (130-400)
[2020-01-23 09:24] LABS: Anion Gap 15 mmol/L (10-20); BUN (Urea Nitrogen) 47 mg/dL (9.8-20.1); Calc. Creatinine Clearance 24 mL/min (70-130); Calcium 7.9 mg/dL (7.8-10.44); Carbon Dioxide 26 mmol/L (23-31); Chloride 99 mmol/L (98-107); Estimated GFR-MDRD 18; Glucose 111 mg/dL (83-110); Potassium 3.5 mmol/L (3.5-5.1); Sodium 136 mmol/L (136-145)
[2020-01-23 11:52] VITALS: TEMP 97.5
--- NOTE | 2020-01-23 13:30 | PQF ---
CLINICAL DOCUMENTATION IMPROVEMENT CLARIFICATION FORM: ICD-10 Updated PLEASE DO AN ADDENDUM TO THE PROGRESS NOTE WITH ANY DOCUMENTATION UPDATES OR ADDITIONS AND CARRY THROUGH TO DC SUMMARY. THANK YOU. DATE: 01/23/2020 ATTN: Dr. Ontiveros Please exercise your independent, professional judgment in responding to the clarification form. Clinical indicators are provided on the bottom of this form for your review Please check appropriate box(s) to clarify if the following diagnosis has been ruled in or ruled out: SEPSIS [ ] Ruled in diagnosis [ ] Continue to treat [ ] Resolved [ x ] Ruled out diagnosis [ ] Improving [ ] Cannot rule out diagnosis [ ] Other diagnosis [ ] Unable to determine In addition, please specify: Present on Admission (POA): [ ] Yes [ ] No [ ] Unable to determine For continuity of documentation, please document condition throughout progress notes and discharge summary. Thank You. CLINICAL INDICATORS - SIGNS / SYMPTOMS / LABS / RESULTS AND LOCATION IN MR H&P 01/18: WBC 14.9 Lactic Acid 2.7 Temp. 101.8 A/P: sepsis due to possible pneumonia or covid infection ADAN - rule out sepsis as above, LAB 01/18: Covid-19 PCR not detected 01/19-01/21 ([place]) complicated E.coli UTI E. Coli bacteremia RISKS: H&P 01/18: 79 yo. PMH CAD, HTN. systolic CHF. 01/19 ([place]) complicated E. coli UTI. E. coli bactremia. NSTEMI. Decompensated HF. TREATMENT: MAR: Order 01/22: Levaquin 750mg po q 2 days. Order 01/18- 01/22: Rocephin 1 gm IV q 24 hr. Thank you, Surekha (This form is maintained as a part of the permanent medical record) 2014 [employer]. All Rights Reserved Surekha Harrell RN, BSN [email or web address]
[2020-01-23] MEDS ORDERED: Ondansetron ODT 4 MG TAB PO PRN (13:33)
[2020-01-23 14:44] VITALS: BP 136/63
[2020-01-23] MEDS ORDERED: Carvedilol 6.25 MG TAB PO SCH (17:00)
[2020-01-23] MEDS ORDERED: Enoxaparin Sodium 30 MG/0.3 ML SYRINGE SC SCH (21:00)
[2020-01-23] MEDS ORDERED: Insulin Glargine 15 UNITS in Pre-Filled Syringe 1 EACH SC SCH (21:00)
--- NOTE | 2020-01-24 11:05 | DIS ---
DATE OF ADMISSION: 01/19/2020 DATE OF DISCHARGE: 01/23/2020 HOSPITAL COURSE: Ms. Christian is a 79-year-old female with medical history of coronary artery disease, status post CABG, heart failure with reduced ejection fraction, type 2 diabetes, who presented with shortness of breath for 3 days, with associated cough, malaise, weakness and fever. She was diagnosed with E coli bacteremia due to complicated E coli urinary tract infection, NSTEMI, decompensated heart failure. The patient promptly responded to antibiotics and was discharged on antibiotics for completion of treatment. For the decompensated heart failure, the patient responded to diuresis and on the day of discharge, was breathing and saturating at baseline on room air. On the day of discharge, she was hemodynamically stable and had no complaints. DISCHARGE MEDICATIONS: New medications: 1. Levaquin 750 mg every other day for 4 more days. 2. Lisinopril 2.5 mg daily. Continued medications: 1. Sertraline. 2. Ezetimibe. 3. Januvia. 4. Rosuvastatin. 5. Glargine 20 units. 6. Plavix. 7. Carvedilol. 8. Aspirin. 9. Insulin aspart breakfast 10 units, lunch 7 units, and dinner 10 units. Discontinued medications: 1. Lasix. Job ID: [id number] MTDD
[2020-01-26 15:36] LABS: BUN (Urea Nitrogen) 41 mg/dL (9.8-20.1)
== END 2020-01-23 14:50 | disposition home or self-care (01) | DRG 280 ==
LOC: ERS 18:10 → 2SW 22:13
PROVIDERS: ADMIT Internal Medicine; ATTEND Internal Medicine
DX: I13.0 Hypertensive heart and chronic kidney disease with heart failure and stage 1 through stage 4 chronic kidney disease, or unspecified chronic kidney disease (principal); I50.23 Acute on chronic systolic (congestive) heart failure; I21.A1 Myocardial infarction type 2; E87.2 Acidosis; N17.9 Acute kidney failure, unspecified; N18.4 Chronic kidney disease, stage 4 (severe); N39.0 Urinary tract infection, site not specified; R78.81 Bacteremia; Z20.828 Contact with and (suspected) exposure to other viral communicable diseases; I25.10 Atherosclerotic heart disease of native coronary artery without angina pectoris; D69.6 Thrombocytopenia, unspecified; F39 Unspecified mood [affective] disorder; E11.22 Type 2 diabetes mellitus with diabetic chronic kidney disease; E78.5 Hyperlipidemia, unspecified; B96.20 Unspecified Escherichia coli [E. coli] as the cause of diseases classified elsewhere; I25.2 Old myocardial infarction; Z86.73 Personal history of transient ischemic attack (TIA), and cerebral infarction without residual deficits; Z95.1 Presence of aortocoronary bypass graft; Z90.49 Acquired absence of other specified parts of digestive tract; Z90.710 Acquired absence of both cervix and uterus
CPT/HCPCS: 36415; 36416; 51701; 71045; 80048; 80053; 81001; 81003; 81015; 82553; 82565; 83605; 83735; 83880; 84484; 85014; 85018; 85025; 85049; 87040; 87077; 87086; 87149; 87186; 87635; 93005; 93798; 96365; 96367; 96372; 96375; A4353; J0456; J0696; J1650; J1815; J1940; J2405; J3490; Q0162; U0003

== ENCOUNTER 2020-03-19 13:04 | Outpatient (CLI) | payer MEDICARE ==
--- NOTE | 2020-03-19 15:39 | ULT ---
BILATERAL RENAL ULTRASOUND COMPLETE: Date: 03/19/2020 HISTORY: Chronic kidney disease. FINDINGS: Right kidney 8.6 x 4.6 x 3.9 cm. Left kidney 7.5 x 4.2 x 4.3 cm. Urinary bladder appears unremarkable. Some diffuse increased cortical echogenicity, evidence for nons pecific renal parenchymal process. No renal hydronephrosis. IMPRESSION: Somewhat small kidneys bilaterally with increased cortical echogenicity. Evidence for nonspecific kailey al parenchymal disease. POS: RRE
== END 2020-03-19 13:05 | disposition home or self-care (01) ==
LOC: BICULT 13:04
PROVIDERS: ATTEND Internal Medicine Nephrology
DX: N18.4 Chronic kidney disease, stage 4 (severe) (principal); N27.1 Small kidney, bilateral; N28.89 Other specified disorders of kidney and ureter
CPT/HCPCS: 76770

== ENCOUNTER 2020-10-02 10:48 | Emergency (ER) | payer MEDICARE ==
[2020-10-02 11:35] LABS: #Basophils 0.1 thou/uL (0.0-0.2); #Eosinphils 0.1 thou/uL (0.0-0.7); #Lymphocytes 1.5 thou/uL (1.20-3.40); #Monocytes 0.7 thou/uL (0.11-0.59); #Neutrophils 5.4 thou/uL (1.40-6.50); %Basophils 0.8 % (0.0-1.0); %Eosinophils 1.5 % (0.0-10.0); %Lymphocytes 19.3 % (21.0-51.0); %Monocytes 8.4 % (0.0-10.0); Hemoglobin 13.2 g/dL (12.0-16.0); Mean Corpuscular HGB CONC 31.6 g/dL (32.0-36.0); Mean Corpuscular Hemoglobin 31.6 pg (27.0-31.0); Mean Platelet Volume 10.5 fL (7.4-10.4); Platelet Count 137 thou/uL (130-400); RBC Distribution Width 15.4 % (11.5-14.5); Red Blood Cell (RBC) Count 4.16 mill/uL (4.20-5.40); White Blood Cell (WBC) Count 7.7 thou/uL (4.8-10.8)
--- NOTE | 2020-10-02 11:46 | RAD ---
EXAM: CHEST ONE VIEW HISTORY: Difficulty breathing with chest tightness. COMPARISON: 01/19/2020 FINDINGS: Postoperative changes related to CABG are again noted. Cardiac silhouette remains enlarged. Coronary artery stents are again seen overlying the right aspect of the cardiac silhouette. Pulmonary vasculature is within normal limits. There is suboptimal evaluation left lung base due to enlarged ca rdiac silhouette and overlying soft tissue density. The lungs are otherwise clear. No interval change from prior study. IMPRESSION: 1. Suboptimal evaluation left lung base. Pleural fluid, atelectasis, or infiltrate left lung base wou ld be difficult to entirely exclude. Lungs are otherwise clear. 2. Cardiomegaly without overt CHF.
[2020-10-02 12:00] LABS: ALT (SGPT) 11 U/L (8-55); AST (SGOT) 26 U/L (5-34); Albumin 3.4 g/dL (3.4-4.8); Alkaline Phosphatase 134 U/L (40-110); Anion Gap 11 mmol/L (10-20); BUN (Urea Nitrogen) 24 mg/dL (9.8-20.1); Bilirubin, Total 0.9 mg/dL (0.2-1.2); Calc. Creatinine Clearance 0 mL/min (70-130); Calcium 8.3 mg/dL (7.8-10.44); Carbon Dioxide 26 mmol/L (23-31); Chloride 106 mmol/L (98-107); Globulin 3.1 g/dL (2.4-3.5); Glucose 244 mg/dL (83-110); Potassium 4.5 mmol/L (3.5-5.1); Protein, Total 6.5 g/dL (5.8-8.1); Sodium 138 mmol/L (136-145)
[2020-10-02 12:23] LABS: CKMB 1.2 ng/mL (0-6.6)
[2020-10-02 15:08] LABS: Troponin I 0.036 ng/mL (< 0.028)
== END 2020-10-02 15:43 | disposition home or self-care (01) ==
LOC: ERS 10:48
DX: R07.89 Other chest pain (principal); I12.0 Hypertensive chronic kidney disease with stage 5 chronic kidney disease or end stage renal disease; E11.22 Type 2 diabetes mellitus with diabetic chronic kidney disease; N18.6 End stage renal disease; I25.10 Atherosclerotic heart disease of native coronary artery without angina pectoris; I48.92 Unspecified atrial flutter; Z79.01 Long term (current) use of anticoagulants; Z79.899 Other long term (current) drug therapy
CPT/HCPCS: 36415; 71045; 80053; 82553; 83880; 84484; 85025; 93005

== ENCOUNTER 2020-11-03 00:46 | Inpatient (IN) | payer MEDICARE ==
[2020-11-03] MEDS ORDERED: hydrALAZINE 20 MG/ML VIAL SLOW IVP PRN (01:15)
[2020-11-03] MEDS ORDERED: Ondansetron PF 4 MG/2 ML Vial IVP PRN (01:15)
[2020-11-03] MEDS ORDERED: Dextrose 50% Abboject 50 ML SYRINGE SLOW IVP PRN (01:15)
[2020-11-03] MEDS ORDERED: Dextrose 5% in Water 1,000 ML IV PRN (01:15)
[2020-11-03] MEDS ORDERED: Acetaminophen 500 MG TAB PO PRN (01:19)
[2020-11-03] MEDS ORDERED: Insulin Regular 300 UNITS/3 ML VIAL SC PRN (01:20)
[2020-11-03 01:28] VITALS: BMI 33.2
[2020-11-03] MEDS ORDERED: Sodium Chloride 0.9% 1,000 ML IV SCH (01:30)
[2020-11-03 01:43] LABS: INR-International Normal Ratio 1.5; PTT 37.6 sec (22.9-36.1); Prothrombin Time 18.3 sec (12.0-14.7)
--- NOTE | 2020-11-03 02:45 | HP ---
TRAUMA SURGEON: Dr. Jolly. CONSULTING PHYSICIAN: Dr. Montes. HISTORY OF PRESENT ILLNESS: The patient is an 80-year-old female who had a mechanical fall today from standing, while on Eliquis. The patient reports hitting the left posterior part of her head during the fall. She denies loss of consciousness. She is on Eliquis. She has several cardiac conditions. 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 She lives at home with her daughter and does not use any assistive devices to get around. She is not on any oxygen at home. She does have some mild dyspnea on exertion which is at baseline at this time. PAST MEDICAL HISTORY: CAD, CABG, systolic heart failure, diabetes, [place], CKD. PAST SURGICAL HISTORY: CABG x2, hysterectomy, cholecystectomy. SOCIAL HISTORY: The patient denies tobacco, drug, or alcohol use. She lives at home with her daughter. She does not use any assistive devices to get around. MEDICATIONS: Include 1. Humalog. 2. Lantus. 3. Eliquis. 4. Carvedilol. 5. Ezetimibe. 6. Lisinopril. 7. Rosuvastatin. 8. Entresto. 9. Zoloft. 10. Torsemide. ALLERGIES: PNEUMONIA VACCINE. PHYSICAL EXAMINATION: VITAL SIGNS: Temperature 98.9, pulse 88, respirations 22, oxygen saturation 96% on room air, blood pressure 142/81. PRIMARY SURVEY: Airway intact. Adequate breath sounds bilaterally. 2+ pulses in bilateral radials, femorals, and DPs. No lacerations or external bleeding. She does have a hematoma to the left posterior aspect of her skull. SECONDARY SURVEY: HEAD: Normocephalic. No gross palpable skull deformities or tenderness. She has a left-sided posterior lateral scalp hematoma. EYES: Pupils 3-2, equal, round, reactive to light bilaterally. ENT: No signs of trauma. C-SPINE: No step-offs or deformities. Nontender. C-collar not in place. CHEST: No crepitus. No abrasions or ecchymosis noted. Equal chest movement. ABDOMEN: Soft, nontender, and nondistended. PELVIS: Stable to palpation. RECTAL: Deferred. GENITOURINARY: Deferred. EXTREMITIES: No gross deformities. No abrasions or ecchymosis noted. 2+ pulses in bilateral radials, femorals, and DPs. BACK/SPINE: No step-offs or deformities or tenderness to palpation of the thoracic or lumbar spine. No abrasions or ecchymosis noted. NEUROLOGIC: 5/5 strength in bilateral beater room helper, plantar flexion, dorsiflexion. Gross normal sensation x4 extremities. LABORATORY FINDINGS: White count 7.7, hemoglobin 13.2, hematocrit 41.6, platelets 137. Sodium 138, potassium 4.5, chloride 106, bicarb 26, BUN 24, creatinine 1.71, glucose 244, total bilirubin 0.9, AST 26, ALT 11, alkaline phosphatase 134. COVID test is negative. DIAGNOSTIC FINDINGS: CT scan of the brain completed this morning demonstrates left frontal scalp hematoma, small extra-axial hematoma along the left temporal convexity. CT scan of the C-spine demonstrates no cervical spine fracture. Multilevel degenerative changes of the cervical spine. ASSESSMENT: 1. Status post mechanical fall from standing, on Eliquis. 2. Left temporal subdural hematoma. 3. History of coronary artery disease, coronary artery bypass grafting, systolic heart failure, diabetes, myocardial infarction, and chronic kidney disease. PLAN: The patient is admitted to the Trauma Service. She was a direct admit from [facility] and she is in the ICU. We will complete q.1 hour neuro checks. Head of the bed at 30 degrees. Goal systolic blood pressure less than 160. Dr. Montes has been consulted, recommends repeat CT scan in the morning. CT is scheduled for 5 a.m. We will keep her n.p.o. for now. She will work with Physical and Occupational therapy and Speech Language Pathology tomorrow. If her GCS remains [address] scan remains stable, then she will likely be able to be discharged home pending evaluation by PT. This patient was discussed with Dr. Jolly before this dictation. Job ID: [id number]
[2020-11-03 03:10] LABS: #Basophils 0.1 thou/uL (0.0-0.2); #Eosinphils 0.2 thou/uL (0.0-0.7); #Monocytes 0.9 thou/uL (0.11-0.59); #Neutrophils 7.1 thou/uL (1.40-6.50); %Eosinophils 1.7 % (0.0-10.0); %Lymphocytes 19.6 % (21.0-51.0); %Monocytes 8.5 % (0.0-10.0); %Neutrophils 69.2 % (42.0-75.0); Hemoglobin 13.4 g/dL (12.0-16.0); Mean Corpuscular HGB CONC 32.9 g/dL (32.0-36.0); Mean Corpuscular Hemoglobin 31.9 pg (27.0-31.0); Mean Corpuscular Volume 96.9 fL (78.0-98.0); Mean Platelet Volume 10.9 fL (7.4-10.4); Platelet Count 151 thou/uL (130-400); Red Blood Cell (RBC) Count 4.21 mill/uL (4.20-5.40); White Blood Cell (WBC) Count 10.2 thou/uL (4.8-10.8)
[2020-11-03 04:10] LABS: Anion Gap 16 mmol/L (10-20); BUN (Urea Nitrogen) 42 mg/dL (9.8-20.1); Calc. Creatinine Clearance 34 mL/min (70-130); Calcium 8.3 mg/dL (7.8-10.44); Carbon Dioxide 27 mmol/L (23-31); Chloride 101 mmol/L (98-107); Glucose 148 mg/dL (83-110); Magnesium 1.7 mg/dL (1.6-2.6); Phosphorus 2.5 mg/dL (2.3-4.7); Potassium 3.3 mmol/L (3.5-5.1); Sodium 141 mmol/L (136-145)
[2020-11-03] MEDS ORDERED: Magnesium 2 GM/50 ML 2 GM in Premix Bag 1 BAG IVPB SCH (05:00)
[2020-11-03] MEDS ORDERED: Potassium Phosphate 30 MMOL in Sodium Chloride 0.9% 250 ML 250 ML IVPB SCH (05:00)
--- NOTE | 2020-11-03 08:03 | PDOC.GSPN ---
Surgery Progress Note: Subj - Subjective Narrative: C/O pain left posterior scalp. No significant headache. Neurologically stable overnight. Surgery Progress Note: Obj - Vital signs Vital signs: Vital Signs - Most Recent Temp Pulse Resp BP Pulse Ox 98.9 F 96 11/03/20 01:02 11/03/20 06:29 - Physical Exam General: no distress Neck: no bruits Cardiovascular: regular rate and rhythm Respiratory: clear to auscultation Additional exam: Alert and oriented times 3. Able to follow commands. Moves all extremities Surgery Progress Note: Results - Labs Result Diagrams: 11/03/20 01:12 11/03/20 01:12 Lab results: Laboratory Results - last 12 hr 11/03/20 11/03/20 11/03/20 01:12 01:12 01:12 WBC 10.2 RBC 4.21 Hgb 13.4 Hct 40.8 MCV 96.9 MCH 31.9 H MCHC 32.9 RDW 14.0 Plt Count 151 MPV 10.9 H Neutrophils % 69.2 Lymphocytes % 19.6 L Monocytes % 8.5 Eosinophils % 1.7 Basophils % 1.0 Neutrophils # 7.1 H Lymphocytes # 2.0 Monocytes # 0.9 H Eosinophils # 0.2 Basophils # 0.1 PT 18.3 H INR 1.5 APTT 37.6 H Sodium 141 Potassium 3.3 L Chloride 101 Carbon Dioxide 27 Anion Gap 16 BUN 42 H Creatinine 1.65 H Estimated GFR (MDRD) 30 Glucose 148 H POC Glucose Calcium 8.3 Phosphorus 2.5 Magnesium 1.7 11/03/20 01:29 WBC RBC Hgb Hct MCV MCH MCHC RDW Plt Count MPV Neutrophils % Lymphocytes % Monocytes % Eosinophils % Basophils % Neutrophils # Lymphocytes # Monocytes # Eosinophils # Basophils # PT INR APTT Sodium Potassium Chloride Carbon Dioxide Anion Gap BUN Creatinine Estimated GFR (MDRD) Glucose POC Glucose 140 H Calcium Phosphorus Magnesium Surgery Progress Note: A/P - Problem (1) SDH (subdural hematoma) Current Visit: Yes Code(s): S06.5X9A - TRAUM SUBDR HEM W LOC OF UNSP DURATION, INIT Status: Acute - Plan Plan: Left sided SDH -Neurologically stable. -Repeat CT scan done -await neurosurgery recs
--- NOTE | 2020-11-03 08:05 | CT ---
PRELIMINARY REPORT/[facility]/EMERGENCY AFTER HOURS PROCEDURE EXAM: CT Head Without Intravenous Contrast. CLINICAL HISTORY: Re-eval TBI TECHNIQUE: Axial computed tomography images of the head/brain without intravenous contrast. COMPARISON: 10/20/2008 FINDINGS: Ventricles and CSF spaces are proportionately enlarged, consistent with parenchymal atrophy. Scatter ed deep and subcortical white matter hypodense foci are confluent in some areas and are compatible with chronic sequelae of microvascular angiopathy. No acute intracranial hemorrhage or mass effect. Left posterior scalp hematoma. No skull fracture. No significant abnormality within the imaged paran marleni sinuses or mastoid air cells. IMPRESSION: No acute intracranial abnormality. 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 Left posterior scalp hematoma. No skull fracture. ELECTRONICALLY SIGNED BY: Ric Matthew MD Nov 03, 2020 5:27:12 AM [employer] [employer] This report is intended for review by the ordering physician only, in accordance of law. If you recei ve this report in error, please call [facility] at [phone]. FINAL REPORT EXAM: CT Brain WO Con PROVIDED CLINICAL HISTORY: Follow up traumatic brain injury COMPARISON: 11/02/2020 FINDINGS: The ventricular system appears unchanged in size and morphology. There is slight interval increase in size of left temporal extra-axial hematoma. This measures about 5 mm in thickness on the current study as compared to about 2 mm in thickness on the prior. There is no significant mass effect. There is no shift of the midline structures. No additional intracranial hemorrhage is evident. Left parietal scalp hematoma without evidence for skull fracture. IMPRESSION: Slight interval increase in size of left temporal extra-axial hematoma. This report is in disagreemen t with the preliminary interpretation. Transcribed Date/Time: 11/03/2020 8:16 AM
--- NOTE | 2020-11-03 08:50 | PRG ---
DATE OF SERVICE: Ms. Christian is an 80-year-old female who presented to the ER status post fall, on Eliquis. I have reviewed the assessment and plan that was dictated by Baldev Mccann. I reviewed his assessment. Ms. Christian has had 2 head CTs performed since admission. She has a small extra-axial hematoma along the left frontoparietal region consistent with a subdural hematoma. This exerts minimal mass effect and in my opinion will be unlikely to require a neurosurgical intervention. She should remain off her Eliquis for an indefinite period of time. Job ID: [id number]
[2020-11-03] MEDS ORDERED: Lisinopril 2.5 MG TAB PO SCH (09:00)
[2020-11-03] MEDS: Carvedilol 3.125 MG TAB PO SCH ×2 (10:36→20:09)
[2020-11-03] MEDS: Ezetimibe 10 MG TAB PO SCH (10:37)
[2020-11-03] MEDS: Senokot S 8.6-50 MG TAB PO SCH ×2 (10:37→20:09)
[2020-11-03] MEDS: Famotidine/PF 20 mg/2ml Vial SLOW IVP SCH (10:37)
[2020-11-03] MEDS: Polyethylene Glycol 3350 17 GM Packet PO SCH (10:37)
[2020-11-03] MEDS: Torsemide 20 MG TAB PO SCH (10:53)
--- NOTE | 2020-11-03 11:22 | CON ---
DATE OF CONSULTATION: HISTORY OF PRESENT ILLNESS: Ms. 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 This was re-imaged this morning and there has been somewhat of a slight expansion, although again this remains small with minimal to no mass effect upon the underlying brain parenchyma. The patient is on Eliquis for history of cardiac disease. She has a triple bypass surgery and multiple coronary stents placed. Her environmental lead is Dr. Craft. She will need to stay off the Eliquis in the short term. I did discuss with her that the typical timeframe of that we hold the patient's off their anticoagulation is anywhere from 4-6 weeks until we have the clean CT scan. Given her cardiac history, it is likely more prudent to do 1-2 weeks to prevent any coronary event. We will discuss more in detail with Dr. Montes. I would like to re-scan the patient a little after noon today to ensure that this does not expand anymore. The patient will be transferred to the surgical floor from the ICU and we can relax to q.6 hours neuro checks. PHYSICAL EXAMINATION: NEUROLOGIC: The patient is alert and oriented x4, understands where she is and the sequence of events that led to her admission. She has full function and excellent strength in bilateral upper and lower extremities. Pupils are equally round and reactive to light. Extraocular movements are intact. Speech is uninhibited and fluid. Job ID: [id number]
[2020-11-03] MEDS: Insulin Regular 300 UNITS/3 ML VIAL SC PRN (12:18)
--- NOTE | 2020-11-03 13:35 | CT ---
CT HEAD WITHOUT IV CONTRAST COMPARISON: 11/03/2020 HISTORY: Follow-up subdural hemorrhage. TECHNIQUE: Axial CT imaging at 5 mm intervals from vertex through skull base without contrast FINDINGS: The extra-axial hemorrhage along the inner table of the squamosal portion left temporal parietal bone is again seen with greatest transverse dimension of approximately 6 mm. Previous transverse dimension is also similar. There does not appear to be increased size of the extra-axial hemorrhage. No significant mass effect is seen. No additional hemorrhage is seen. There is no evidence of an acute infarction or midline shift. The ventricular system is normal in siz e, shape, and position. Skull base has a normal CT appearance. Incomplete visualization of mucous retention cyst floor of the right maxillary antrum. Osseous structures appear intact.No depressed calvarial fracture is seen. IMPRESSION: Overall stable size of left temporal extra-axial hematoma.
[2020-11-03] MEDS ORDERED: Potassium Phosphate 40 MMOL in Sodium Chloride 0.9% 250 ML 250 ML IVPB SCH (21:00)
[2020-11-03] MEDS ORDERED: Rosuvastatin 10 MG TAB PO SCH (21:00)
[2020-11-03] MEDS ORDERED: Magnesium Sulfate 3 GM in Sodium Chloride 0.9% 100 ML IV SCH (21:00)
[2020-11-04 05:30] LABS: #Basophils 0.1 thou/uL (0.0-0.2); #Eosinphils 0.3 thou/uL (0.0-0.7); #Lymphocytes 1.9 thou/uL (1.20-3.40); #Monocytes 0.9 thou/uL (0.11-0.59); #Neutrophils 5.9 thou/uL (1.40-6.50); %Basophils 0.7 % (0.0-1.0); %Eosinophils 2.8 % (0.0-10.0); %Lymphocytes 20.7 % (21.0-51.0); %Monocytes 9.8 % (0.0-10.0); Hemoglobin 12.8 g/dL (12.0-16.0); Mean Corpuscular HGB CONC 32.2 g/dL (32.0-36.0); Mean Corpuscular Hemoglobin 31.8 pg (27.0-31.0); Mean Corpuscular Volume 98.8 fL (78.0-98.0); Mean Platelet Volume 10.5 fL (7.4-10.4); Platelet Count 140 thou/uL (130-400); RBC Distribution Width 14.1 % (11.5-14.5); Red Blood Cell (RBC) Count 4.03 mill/uL (4.20-5.40)
[2020-11-04 06:36] LABS: Anion Gap 13 mmol/L (10-20); BUN (Urea Nitrogen) 33 mg/dL (9.8-20.1); Calc. Creatinine Clearance 34 mL/min (70-130); Calcium 8.1 mg/dL (7.8-10.44); Carbon Dioxide 28 mmol/L (23-31); Chloride 102 mmol/L (98-107); Glucose 152 mg/dL (83-110); Potassium 3.6 mmol/L (3.5-5.1); Sodium 139 mmol/L (136-145)
[2020-11-04 08:00] VITALS: TEMP 98
[2020-11-04] MEDS: Famotidine/PF 20 mg/2ml Vial SLOW IVP SCH (10:21)
[2020-11-04] MEDS: Polyethylene Glycol 3350 17 GM Packet PO SCH (10:22)
[2020-11-04] MEDS: Ezetimibe 10 MG TAB PO SCH (10:22)
[2020-11-04] MEDS: Carvedilol 3.125 MG TAB PO SCH (10:22)
[2020-11-04] MEDS: Senokot S 8.6-50 MG TAB PO SCH (10:22)
[2020-11-04] MEDS: Torsemide 20 MG TAB PO SCH (10:30)
[2020-11-04] MEDS: Insulin Regular 300 UNITS/3 ML VIAL SC PRN (12:29)
[2020-11-04 12:50] VITALS: BP 146/73
--- NOTE | 2020-11-04 14:22 | DIS ---
DATE OF ADMISSION: 11/03/2020 DATE OF DISCHARGE: 11/04/2020 HOSPITAL COURSE: The patient was transferred from [facility] after a mechanical fall while standing on Eliquis. A CT scan was done at [facility], which showed a left frontal scalp hematoma, small extra- axial hematoma of the left temporal convexity. CT scan of the spine demonstrates no cervical spine fractures. Dr. Montes was accepting physician to monitor the patient for [address] was done at 5 a.m. in the morning, which showed slight interval increase in the size of the left temporal extra-axial hematoma. The patient was held overnight and CT was repeated in afternoon, which sowed a stable left temporal extra-axial hematoma. The patient has spent 1 night in the ICU, q.1 hour neuro checks with blood pressure control, systolic less than 140. The patient's anticoagulation medication was held, and the patient was placed on neuro precautions. At the time of discharge, the patient will follow up with Dr. Montes in 2 to 3 weeks. The patient is to follow up with primary care doctor after being discharged from the hospital. PHYSICAL EXAMINATION: VITAL SIGNS: Temperature 98, pulse 55, respiratory rate 18, O2 saturation 94, blood pressure 146/73. GENERAL: The patient is talking in full sentences. A and O x3. GCS 15. CARDIAC: Regular rate and rhythm. PULMONARY: Equal breath sounds bilaterally. No accessory muscle use. ABDOMEN: Soft, nontender. MUSCULOSKELETAL: The patient is active and moving upper and lower extremities. Sensation intact in all 4 extremities. LABORATORY DATA: At time of discharge, white blood cell count 9.0, hemoglobin 12.8, hematocrit 39.8, platelets 140. Chemistry; sodium 139, potassium 3.6, chloride 102, bicarb 28, BUN 33, creatinine 1.6, phosphate 4.0, magnesium 2.0. IMAGING STUDIES: CT scan at 5 a.m. 11/03 shows slight interval increase in size of left temporal extra-axial hematoma. This is increased in size from the report from [facility]. CT scan done on 11/03 at 12:30 p.m. shows stable size left temporal extra-axial hematoma. ASSESSMENT: 1. Status post mechanical fall from standing on Eliquis. 2. Left temporal subdural hematoma. 3. History of coronary artery disease, bypass graft, heart failure, diabetes, chronic kidney disease. PLAN: 1. The patient should call Neurosurgery, Dr. Montes's office to follow up in 2 to 3 weeks. 2. The patient is to remain off Eliquis indefinitely until followup with Neurosurgery. 3. Plan to repeat head CT. 4. The patient can resume blood pressure medication and to withhold from Eliquis and aspirin. 5. The patient and daughter have been educated to look for signs of weakness, not able to move upper and lower extremities, increased vomiting, or not able to speak. The patient has been educated to return to the emergency department immediately. Job ID: [id number] [id number]
== END 2020-11-04 12:45 | disposition home or self-care (01) | DRG 86 ==
LOC: CCU 00:46 → SURG A 13:22
PROVIDERS: ADMIT Surgery; ATTEND Surgery
DX: S06.5X0A Traumatic subdural hemorrhage without loss of consciousness, initial encounter (principal); I50.22 Chronic systolic (congestive) heart failure; W18.30XA Fall on same level, unspecified, initial encounter; I25.10 Atherosclerotic heart disease of native coronary artery without angina pectoris; E11.22 Type 2 diabetes mellitus with diabetic chronic kidney disease; N18.9 Chronic kidney disease, unspecified; Z95.1 Presence of aortocoronary bypass graft; Z90.710 Acquired absence of both cervix and uterus; Z90.49 Acquired absence of other specified parts of digestive tract; Z79.4 Long term (current) use of insulin; Z79.01 Long term (current) use of anticoagulants; Z88.7 Allergy status to serum and vaccine; I25.2 Old myocardial infarction
CPT/HCPCS: 36415; 36416; 70450; 80048; 83735; 84100; 85025; 85610; 85730; J3475; J7050; S0028

== ENCOUNTER 2020-11-07 13:23 | Inpatient (IN) | payer MEDICARE ==
[2020-11-07 14:00] LABS: #Eosinphils 0.2 thou/uL (0.0-0.7); #Lymphocytes 1.5 thou/uL (1.20-3.40); #Monocytes 0.7 thou/uL (0.11-0.59); #Neutrophils 6.2 thou/uL (1.40-6.50); %Basophils 0.4 % (0.0-1.0); %Eosinophils 1.9 % (0.0-10.0); %Lymphocytes 17.4 % (21.0-51.0); %Monocytes 7.8 % (0.0-10.0); %Neutrophils 72.4 % (42.0-75.0); Mean Corpuscular Hemoglobin 30.8 pg (27.0-31.0); Mean Corpuscular Volume 99.5 fL (78.0-98.0); Mean Platelet Volume 10.4 fL (7.4-10.4); Platelet Count 154 thou/uL (130-400); RBC Distribution Width 13.9 % (11.5-14.5); Red Blood Cell (RBC) Count 4.23 mill/uL (4.20-5.40); White Blood Cell (WBC) Count 8.5 thou/uL (4.8-10.8)
[2020-11-07 14:26] LABS: ALT (SGPT) 35 U/L (8-55); AST (SGOT) 88 U/L (5-34); Albumin 3.5 g/dL (3.4-4.8); Alkaline Phosphatase 144 U/L (40-110); Anion Gap 15 mmol/L (10-20); BUN (Urea Nitrogen) 29 mg/dL (9.8-20.1); Bilirubin, Total 0.8 mg/dL (0.2-1.2); Calc. Creatinine Clearance 0 mL/min (70-130); Calcium 8.7 mg/dL (7.8-10.44); Carbon Dioxide 28 mmol/L (23-31); Chloride 101 mmol/L (98-107); Globulin 3.4 g/dL (2.4-3.5); Glucose 144 mg/dL (83-110); Potassium 3.5 mmol/L (3.5-5.1); Protein, Total 6.9 g/dL (5.8-8.1); Sodium 140 mmol/L (136-145)
[2020-11-07 16:28] LABS: Magnesium 1.7 mg/dL (1.6-2.6); Phosphorus 3.3 mg/dL (2.3-4.7)
[2020-11-07] MEDS ORDERED: Magnesium Sulfate 3 GM in Sodium Chloride 0.9% 100 ML IVPB SCH (16:38)
[2020-11-07] MEDS ORDERED: Insulin Regular 300 UNITS/3 ML VIAL SC PRN ×2 (16:40)
[2020-11-07] MEDS ORDERED: Ondansetron ODT 4 MG TAB PO PRN (16:40)
[2020-11-07] MEDS ORDERED: Dextrose 50% Abboject 50 ML SYRINGE SLOW IVP PRN (16:40)
[2020-11-07] MEDS ORDERED: Dextrose 5% in Water 1,000 ML IV PRN (16:40)
[2020-11-07] MEDS ORDERED: hydrALAZINE 20 MG/ML VIAL SLOW IVP PRN (16:40)
[2020-11-07] MEDS ORDERED: Ondansetron PF 4 MG/2 ML Vial IVP PRN (16:40)
[2020-11-07] MEDS ORDERED: Acetaminophen 325 MG TAB PO PRN (16:44)
[2020-11-07] MEDS ORDERED: Potassium Phosphate 30 MMOL, Magnesium Sulfate 3 GM in Sodium Chloride 0.9% 250 ML IVPB SCH (17:00)
[2020-11-07 17:14] LABS: Troponin I 0.069 ng/mL (< 0.028)
[2020-11-07 20:18] LABS: Troponin I 0.076 ng/mL (< 0.028)
[2020-11-07] MEDS ORDERED: Famotidine 20 MG TAB PO SCH (21:00)
[2020-11-07] MEDS: Senokot S 8.6-50 MG TAB PO SCH (22:30)
[2020-11-07 23:10] VITALS: BMI 33.8
[2020-11-08 05:36] LABS: Hemoglobin 12.9 g/dL (12.0-16.0); Mean Corpuscular Hemoglobin 31.1 pg (27.0-31.0); Mean Platelet Volume 11.1 fL (7.4-10.4); Platelet Count 145 thou/uL (130-400); RBC Distribution Width 13.9 % (11.5-14.5); Red Blood Cell (RBC) Count 4.15 mill/uL (4.20-5.40); White Blood Cell (WBC) Count 8.4 thou/uL (4.8-10.8)
[2020-11-08 06:19] LABS: Anion Gap 14 mmol/L (10-20); BUN (Urea Nitrogen) 27 mg/dL (9.8-20.1); Calc. Creatinine Clearance 37 mL/min (70-130); Calcium 8.5 mg/dL (7.8-10.44); Carbon Dioxide 28 mmol/L (23-31); Chloride 103 mmol/L (98-107); Glucose 120 mg/dL (83-110); Magnesium 2.5 mg/dL (1.6-2.6); Potassium 4.1 mmol/L (3.5-5.1); Sodium 141 mmol/L (136-145)
[2020-11-08] MEDS ORDERED: HumaLOG 300 UNITS/3 ML VIAL SC PRN ×2 (07:56)
[2020-11-08] MEDS ORDERED: Famotidine 20 MG TAB PO SCH (09:00)
[2020-11-08] MEDS: Torsemide 20 MG TAB PO SCH (09:15)
[2020-11-08] MEDS: Senokot S 8.6-50 MG TAB PO SCH ×2 (09:15→20:14)
[2020-11-08] MEDS: Polyethylene Glycol 3350 17 GM Packet PO SCH (09:15)
[2020-11-08] MEDS ORDERED: HumaLOG 300 UNITS/3 ML VIAL SC SCH (11:30)
[2020-11-08] MEDS: HumaLOG 300 UNITS/3 ML VIAL SC SCH ×2 (11:44→17:37)
[2020-11-08] MEDS: Lisinopril 5 MG TAB PO SCH (20:13)
[2020-11-08] MEDS: Famotidine 20 MG TAB PO SCH (20:14)
[2020-11-08] MEDS: Rosuvastatin 20 MG TAB PO SCH (20:16)
[2020-11-08] MEDS ORDERED: Non-Formulary Item 1 EACH (Rosuvastatin Calcium [Rosuvastatin Calcium] 40 MG Tablet) PO SCH (21:00)
[2020-11-08] MEDS: Insulin Glargine 20 UNITS in Pre-Filled Syringe 1 EACH SC SCH (23:44)
[2020-11-09] MEDS: Famotidine 20 MG TAB PO SCH (08:22)
[2020-11-09] MEDS: Torsemide 20 MG TAB PO SCH (08:23)
[2020-11-09] MEDS: HumaLOG 300 UNITS/3 ML VIAL SC SCH ×3 (08:23→18:32)
[2020-11-09] MEDS: Senokot S 8.6-50 MG TAB PO SCH ×2 (08:24→21:01)
[2020-11-09] MEDS: Polyethylene Glycol 3350 17 GM Packet PO SCH (08:24)
[2020-11-09] MEDS ORDERED: Sodium Chloride 0.9% 1,000 ML IV SCH (10:15)
[2020-11-09] MEDS ORDERED: Iopamidol 370 76% 50 ML VIAL FS ONE (11:42)
[2020-11-09] MEDS ORDERED: CEFAZOLIN 1 GM VIAL ONE (12:09)
[2020-11-09] MEDS ORDERED: Gentamicin 80 MG/2 ML VIAL ONE (12:09)
[2020-11-09] MEDS ORDERED: Midazolam HCl 2 mg/2 ml Vial ONE ×2 (13:15→13:37)
[2020-11-09] MEDS ORDERED: Lidocaine 1% (PF) 30 ML VIAL ONE (13:32)
[2020-11-09] MEDS ORDERED: Amiodarone 200 MG TAB PO SCH (14:45)
[2020-11-09] MEDS: Acetaminophen/Codeine 30-300mg Tablet PO PRN ×2 (15:43→21:02)
[2020-11-09] MEDS: Carvedilol 6.25 MG TAB PO SCH (18:31)
[2020-11-09] MEDS: Lisinopril 5 MG TAB PO SCH (21:00)
[2020-11-09] MEDS: Insulin Glargine 20 UNITS in Pre-Filled Syringe 1 EACH SC SCH (21:00)
[2020-11-09] MEDS: Amiodarone 200 MG TAB PO SCH (21:00)
[2020-11-09] MEDS: Rosuvastatin 20 MG TAB PO SCH (21:01)
[2020-11-10] MEDS: Senokot S 8.6-50 MG TAB PO SCH (08:26)
[2020-11-10] MEDS: Polyethylene Glycol 3350 17 GM Packet PO SCH (08:27)
[2020-11-10] MEDS: Amiodarone 200 MG TAB PO SCH ×2 (08:27→21:06)
[2020-11-10] MEDS: Carvedilol 6.25 MG TAB PO SCH (08:28)
[2020-11-10] MEDS: Torsemide 20 MG TAB PO SCH (08:28)
[2020-11-10] MEDS: HumaLOG 300 UNITS/3 ML VIAL SC SCH ×3 (08:32→18:19)
[2020-11-10] MEDS ORDERED: Famotidine 20 MG TAB PO SCH (09:00)
[2020-11-10] MEDS: Acetaminophen/Codeine 30-300mg Tablet PO PRN (10:54)
[2020-11-10] MEDS: traMADol HCl 50 MG TAB PO PRN (13:46)
[2020-11-10] MEDS: Lisinopril 5 MG TAB PO SCH (21:03)
[2020-11-10] MEDS: Rosuvastatin 20 MG TAB PO SCH (21:05)
[2020-11-10] MEDS: Insulin Glargine 20 UNITS in Pre-Filled Syringe 1 EACH SC SCH (21:10)
[2020-11-11] MEDS: Amiodarone 200 MG TAB PO SCH (08:36)
[2020-11-11] MEDS: HumaLOG 300 UNITS/3 ML VIAL SC SCH ×2 (08:36→12:06)
[2020-11-11 08:54] VITALS: BP 128/75; TEMP 98.2
[2020-11-11] MEDS: Torsemide 20 MG TAB PO SCH (10:37)
[2020-11-11] MEDS: traMADol HCl 50 MG TAB PO PRN (12:25)
== END 2020-11-11 14:30 | disposition home health service (06) | DRG 243 ==
LOC: ERS 13:23 → OBSVTOIN 16:18 → ERHOLD 16:18 → 2NO 20:19 → SURG A 11-10 18:12
PROVIDERS: ADMIT Surgery; ATTEND Surgery
PROC: 0JH606Z Insertion of Pacemaker, Dual Chamber into Chest Subcutaneous Tissue and Fascia, Open Approach (ICD-10-PCS; principal; 2020-11-09)
PROC: 02HK3JZ Insertion of Pacemaker Lead into Right Ventricle, Percutaneous Approach (ICD-10-PCS; 2020-11-09)
PROC: 02H63JZ Insertion of Pacemaker Lead into Right Atrium, Percutaneous Approach (ICD-10-PCS; 2020-11-09)
DX: I49.5 Sick sinus syndrome (principal); N18.4 Chronic kidney disease, stage 4 (severe); I13.0 Hypertensive heart and chronic kidney disease with heart failure and stage 1 through stage 4 chronic kidney disease, or unspecified chronic kidney disease; I50.42 Chronic combined systolic (congestive) and diastolic (congestive) heart failure; Z20.822 Contact with and (suspected) exposure to COVID-19; I25.10 Atherosclerotic heart disease of native coronary artery without angina pectoris; E11.22 Type 2 diabetes mellitus with diabetic chronic kidney disease; F41.9 Anxiety disorder, unspecified; F32.9 Major depressive disorder, single episode, unspecified; S06.5X9D Traumatic subdural hemorrhage with loss of consciousness of unspecified duration, subsequent encounter; W19.XXXD Unspecified fall, subsequent encounter; I48.0 Paroxysmal atrial fibrillation; Z95.1 Presence of aortocoronary bypass graft; Z87.820 Personal history of traumatic brain injury; Z90.49 Acquired absence of other specified parts of digestive tract; Z90.710 Acquired absence of both cervix and uterus; Z88.7 Allergy status to serum and vaccine; Z79.01 Long term (current) use of anticoagulants; Z79.4 Long term (current) use of insulin; Z79.899 Other long term (current) drug therapy; I25.2 Old myocardial infarction
CPT/HCPCS: 33208; 36005; 36415; 36416; 70450; 71045; 75820; 76942; 80048; 80053; 82553; 83735; 83880; 84100; 84484; 85025; 85027; 93005; 93010; 93306; 96374; 96375; 97139; 99152; 99153; C1785; C1898; G0378; J0360; J0690; J1580; J1815; J2001; J2250; J3475; J7030; Q9967

== ENCOUNTER 2021-07-19 10:47 | Outpatient (CLI) | payer MEDICARE | END 2021-07-19 10:48 | disposition home or self-care (01) | LOC: BICMAMMO 10:47 | PROVIDERS: ATTEND Family Medicine | DX: Z12.31 Encounter for screening mammogram for malignant neoplasm of breast (principal) | CPT/HCPCS: 77063; 77067 ==

== ENCOUNTER 2021-10-29 17:36 | Emergency (ER) | payer MEDICARE ==
[2021-10-29] MEDS ORDERED: Xylocaine 1% w/ Epi 1:100K 10 ML VIAL ONE (19:26)
== END 2021-10-29 21:33 | disposition home or self-care (01) ==
LOC: ERS 17:36
DX: S01.81XA Laceration without foreign body of other part of head, initial encounter (principal); W10.9XXA Fall (on) (from) unspecified stairs and steps, initial encounter; I25.10 Atherosclerotic heart disease of native coronary artery without angina pectoris; N18.6 End stage renal disease; I12.0 Hypertensive chronic kidney disease with stage 5 chronic kidney disease or end stage renal disease; E11.22 Type 2 diabetes mellitus with diabetic chronic kidney disease
CPT/HCPCS: 12011; 70450; 70486; 72125

== ENCOUNTER 2022-05-26 10:53 | Inpatient (IN) | payer OTHER ==
[2022-05-26] MEDS ORDERED: Ondansetron PF 4 MG/2 ML Vial ONE (11:35)
[2022-05-26 12:06] LABS: #Basophils 0.1 thou/uL (0.0-0.2); #Eosinphils 0.3 thou/uL (0.0-0.7); #Lymphocytes 1.8 thou/uL (1.20-3.40); #Monocytes 0.6 thou/uL (0.11-0.59); #Neutrophils 6.4 thou/uL (1.40-6.50); %Basophils 0.6 % (0.0-1.0); %Eosinophils 3.3 % (0.0-10.0); %Lymphocytes 19.9 % (21.0-51.0); %Monocytes 6.5 % (0.0-10.0); %Neutrophils 69.7 % (42.0-75.0); Hemoglobin 12.2 g/dL (12.0-16.0); Mean Corpuscular HGB CONC 32.6 g/dL (32.0-36.0); Mean Corpuscular Hemoglobin 33.2 pg (27.0-31.0); Mean Platelet Volume 10.4 fL (7.4-10.4); Platelet Count 120 thou/uL (130-400); RBC Distribution Width 12.6 % (11.5-14.5); Red Blood Cell (RBC) Count 3.67 mill/uL (4.20-5.40); White Blood Cell (WBC) Count 9.2 thou/uL (4.8-10.8)
[2022-05-26] MEDS ORDERED: Morphine 4 MG/ML VIAL ONE (12:11)
[2022-05-26] MEDS ORDERED: Promethazine HCl 25 MG in Sodium Chloride 0.9% 50 ML IVPB SCH (12:30)
[2022-05-26 12:34] LABS: ALT (SGPT) 9 U/L (8-55); AST (SGOT) 18 U/L (5-34); Alkaline Phosphatase 117 U/L (40-110); Anion Gap 16 mmol/L (10-20); BUN (Urea Nitrogen) 25 mg/dL (9.8-20.1); Bilirubin, Total 1.1 mg/dL (0.2-1.2); Calc. Creatinine Clearance 0 mL/min (70-130); Calcium 8.6 mg/dL (7.8-10.44); Carbon Dioxide 23 mmol/L (23-31); Chloride 104 mmol/L (98-107); Estimated GFR 32; Globulin 2.8 g/dL (2.4-3.5); Glucose 230 mg/dL (83-110); Lipase 66 U/L (8-78); Magnesium 1.9 mg/dL (1.6-2.6); Protein, Total 6.8 g/dL (5.8-8.1); Sodium 139 mmol/L (136-145)
[2022-05-26] MEDS ORDERED: Proparacaine 0.5% Opth 15 ML BOT ONE (14:26)
[2022-05-26] MEDS ORDERED: Fentanyl 100 MCG/2 ML VIAL ONE (15:36)
[2022-05-26] MEDS ORDERED: Lidocaine 2% PF 5 ML VIAL ONE (15:36)
[2022-05-26] MEDS ORDERED: PROPOFOL 20 ML ONE (15:36)
[2022-05-26] MEDS ORDERED: Boostrix 0.5 ML (Tdap) VIAL (>/=7 yrs of age) ONE (15:48)
[2022-05-26] MEDS ORDERED: CEFAZOLIN 2 GM VIAL ONE (15:48)
[2022-05-26] MEDS ORDERED: hydrALAZINE 20 MG/ML VIAL SLOW IVP PRN (16:59)
[2022-05-26] MEDS ORDERED: TETANUS, DIPHTHERIA TOX,ADULT (TDVAX) 0.5 ML VIAL IM ONE (16:59)
[2022-05-26] MEDS ORDERED: Ondansetron PF 4 MG/2 ML Vial IVP PRN (16:59)
[2022-05-26] MEDS ORDERED: hydrALAZINE 20 MG/ML VIAL SLOW IVP SCH (18:15)
[2022-05-26] MEDS ORDERED: hydrALAZINE 20 MG/ML VIAL ONE (18:16)
[2022-05-26] MEDS ORDERED: Carvedilol 6.25 MG TAB PO SCH (18:30)
[2022-05-26] MEDS ORDERED: HUMAN PROTHROMBIN COMPLX IV SCH (19:15)
[2022-05-26] MEDS ORDERED: ADMIXTURE FEE IV SCH (19:15)
[2022-05-26 19:19] LABS: SARS-CoV-2 NAA Rapid Test Not Detected (NotDetected)
[2022-05-26] MEDS ORDERED: Famotidine/PF 20 mg/2ml Vial SLOW IVP SCH (21:00)
[2022-05-26] MEDS ORDERED: HumaLOG 300 UNITS/3 ML VIAL SC PRN (22:25)
[2022-05-26] MEDS ORDERED: Dextrose 5% in Water 1,000 ML IV PRN (22:25)
[2022-05-26] MEDS ORDERED: Dextrose 50% Abboject 50 ML SYRINGE SLOW IVP PRN (22:25)
[2022-05-26] MEDS: Acetaminophen 500 MG TAB PO SCH (23:06)
[2022-05-27 01:10] LABS: Troponin I 0.045 ng/mL (< 0.028)
[2022-05-27 03:27] VITALS: BMI 26.5
[2022-05-27] MEDS: Acetaminophen 325 MG TAB PO SCH (03:45)
[2022-05-27] MEDS: Acetaminophen 500 MG TAB PO SCH ×4 (06:06→23:47)
[2022-05-27] MEDS ORDERED: Carvedilol 6.25 MG TAB PO SCH (08:00)
[2022-05-27] MEDS: Carvedilol 6.25 MG TAB PO SCH ×2 (08:15→17:54)
[2022-05-27] MEDS: Famotidine/PF 20 mg/2ml Vial SLOW IVP SCH (08:17)
[2022-05-27 08:31] LABS: #Basophils 0.1 thou/uL (0.0-0.2); #Eosinphils 0.1 thou/uL (0.0-0.7); #Monocytes 0.6 thou/uL (0.11-0.59); #Neutrophils 4.9 thou/uL (1.40-6.50); %Basophils 0.9 % (0.0-1.0); %Eosinophils 1.9 % (0.0-10.0); %Lymphocytes 15.2 % (21.0-51.0); %Monocytes 8.8 % (0.0-10.0); %Neutrophils 73.2 % (42.0-75.0); Hemoglobin 10.6 g/dL (12.0-16.0); Mean Corpuscular HGB CONC 32.1 g/dL (32.0-36.0); Mean Corpuscular Hemoglobin 33.3 pg (27.0-31.0); Mean Platelet Volume 10.6 fL (7.4-10.4); Platelet Count 98 thou/uL (130-400); RBC Distribution Width 12.6 % (11.5-14.5); Red Blood Cell (RBC) Count 3.18 mill/uL (4.20-5.40); White Blood Cell (WBC) Count 6.7 thou/uL (4.8-10.8)
[2022-05-27 08:52] LABS: Anion Gap 14 mmol/L (10-20); BUN (Urea Nitrogen) 26 mg/dL (9.8-20.1); Calc. Creatinine Clearance 24 mL/min (70-130); Calcium 8.3 mg/dL (7.8-10.44); Carbon Dioxide 25 mmol/L (23-31); Chloride 104 mmol/L (98-107); Estimated GFR 30; Glucose 113 mg/dL (83-110); Magnesium 1.8 mg/dL (1.6-2.6); Phosphorus 4.1 mg/dL (2.3-4.7); Potassium 4.3 mmol/L (3.5-5.1); Sodium 139 mmol/L (136-145)
[2022-05-27] MEDS: Rosuvastatin 20 MG TAB PO SCH (21:23)
[2022-05-28] MEDS: Acetaminophen 500 MG TAB PO SCH ×3 (05:51→17:29)
[2022-05-28] MEDS: Torsemide 20 MG TAB PO SCH ×2 (08:26→22:04)
[2022-05-28] MEDS: Ezetimibe 10 MG TAB PO SCH (08:26)
[2022-05-28] MEDS: Famotidine/PF 20 mg/2ml Vial SLOW IVP SCH (08:26)
[2022-05-28] MEDS: Carvedilol 6.25 MG TAB PO SCH ×2 (08:26→17:30)
[2022-05-28] MEDS: Rosuvastatin 20 MG TAB PO SCH (22:04)
[2022-05-29] MEDS: Acetaminophen 500 MG TAB PO SCH ×2 (00:08→05:51)
[2022-05-29] MEDS ORDERED: Famotidine 20 MG TAB PO SCH (09:00)
[2022-05-29] MEDS: Carvedilol 6.25 MG TAB PO SCH (09:03)
[2022-05-29] MEDS: Torsemide 20 MG TAB PO SCH (09:03)
[2022-05-29] MEDS: Ezetimibe 10 MG TAB PO SCH (09:04)
[2022-05-29 11:49] VITALS: BP 111/68; TEMP 97.9
[2022-05-29] MEDS ORDERED: Senokot S 8.6-50 MG TAB PO SCH (21:00)
[2022-05-30] MEDS ORDERED: Polyethylene Glycol 3350 17 GM Packet PO SCH (09:00)
== END 2022-05-29 16:08 | disposition home health service (06) | DRG 115 ==
LOC: ERS 10:53 → SJJU 16:59
PROVIDERS: ADMIT Specialist; ATTEND Specialist
PROC: 08N1XZZ Release Left Eye, External Approach (ICD-10-PCS; principal; 2022-05-26)
DX: S02.32XA Fracture of orbital floor, left side, initial encounter for closed fracture (principal); Z23 Encounter for immunization; Z20.822 Contact with and (suspected) exposure to COVID-19; S02.40DA Maxillary fracture, left side, initial encounter for closed fracture; T79.A9XA Traumatic compartment syndrome of other sites, initial encounter; I50.22 Chronic systolic (congestive) heart failure; N18.4 Chronic kidney disease, stage 4 (severe); I16.1 Hypertensive emergency; H40.32X0 Glaucoma secondary to eye trauma, left eye, stage unspecified; I25.10 Atherosclerotic heart disease of native coronary artery without angina pectoris; E11.22 Type 2 diabetes mellitus with diabetic chronic kidney disease; F41.9 Anxiety disorder, unspecified; F32.A Depression, unspecified; Z96.641 Presence of right artificial hip joint; W18.30XA Fall on same level, unspecified, initial encounter; Y92.481 Parking lot as the place of occurrence of the external cause; Y99.9 Unspecified external cause status; Z95.1 Presence of aortocoronary bypass graft; Z90.49 Acquired absence of other specified parts of digestive tract; Z90.710 Acquired absence of both cervix and uterus; Z88.7 Allergy status to serum and vaccine; Z79.899 Other long term (current) drug therapy; Z79.02 Long term (current) use of antithrombotics/antiplatelets; Z79.01 Long term (current) use of anticoagulants
CPT/HCPCS: 36415; 36416; 70450; 70486; 71045; 80048; 80053; 80061; 83690; 83735; 83880; 84100; 84484; 85025; 90471; 90715; 93005; 93306; 93880; 96361; 96365; 96375; G0390; J0360; J0690; J1815; J2001; J2270; J2405; J2550; J2704; J3010; S0028; U0002

== ENCOUNTER 2022-07-31 03:03 | Inpatient (IN) | payer OTHER ==
[2022-07-31 05:10] VITALS: BMI 36.9
[2022-07-31] MEDS ORDERED: Ondansetron PF 4 MG/2 ML Vial IVP PRN (10:24)
[2022-07-31] MEDS ORDERED: Loperamide HCl 2 MG CAP PO PRN (10:24)
[2022-07-31] MEDS ORDERED: Acetaminophen 325 MG TAB PO PRN (10:24)
[2022-07-31] MEDS ORDERED: ALPRAZolam 0.25 MG TAB PO PRN (10:47)
[2022-07-31 11:06] LABS: #Basophils 0.1 thou/uL (0.0-0.2); #Eosinphils 0.1 thou/uL (0.0-0.7); #Lymphocytes 1.7 thou/uL (1.20-3.40); #Monocytes 0.8 thou/uL (0.11-0.59); #Neutrophils 5.4 thou/uL (1.40-6.50); %Basophils 0.8 % (0.0-1.0); %Eosinophils 1.1 % (0.0-10.0); %Lymphocytes 20.6 % (21.0-51.0); %Monocytes 10.2 % (0.0-10.0); %Neutrophils 67.3 % (42.0-75.0); Hemoglobin 11.6 g/dL (12.0-16.0); Mean Corpuscular HGB CONC 31.4 g/dL (32.0-36.0); Mean Corpuscular Hemoglobin 31.6 pg (27.0-31.0); Mean Platelet Volume 10.4 fL (7.4-10.4); Platelet Count 129 10x3/uL (130-400); RBC Distribution Width 13.9 % (11.5-14.5); Red Blood Cell (RBC) Count 3.68 mill/uL (4.20-5.40)
[2022-07-31 11:32] LABS: Anion Gap 15 mmol/L (10-20); BUN (Urea Nitrogen) 18 mg/dL (9.8-20.1); Calc. Creatinine Clearance 45 mL/min (70-130); Calcium 8.3 mg/dL (7.8-10.44); Carbon Dioxide 29 mmol/L (23-31); Chloride 98 mmol/L (98-107); Estimated GFR 39; Glucose 153 mg/dL (83-110); Potassium 3.5 mmol/L (3.5-5.1); Sodium 138 mmol/L (136-145)
[2022-07-31] MEDS ORDERED: Potassium Chloride 20 MEQ TAB PO SCH (12:15)
[2022-07-31 12:43] LABS: CKMB 2.1 ng/mL (0-6.6)
[2022-07-31] MEDS ORDERED: Carvedilol 25 MG TAB PO SCH (13:30)
[2022-07-31] MEDS ORDERED: Sertraline 100 MG TAB PO SCH (13:30)
[2022-07-31] MEDS: Furosemide 40 MG TAB PO SCH (13:53)
[2022-07-31] MEDS ORDERED: Furosemide 20 MG TAB PO SCH (14:00)
[2022-07-31] MEDS ORDERED: Heparin 5,000 UNITS/ML VIAL SC SCH (15:00)
[2022-07-31] MEDS: Carvedilol 25 MG TAB PO SCH (16:46)
[2022-07-31 17:09] LABS: Bacteria/HPF None Seen HPF (None Seen); Bilirubin Negative (Negative); Blood, Urine Negative (Negative); CAUTI Indications for Culture Dysuria,urgency,freq; Clarity Clear (Clear); Glucose, Urine (Dipstick) Normal (Negative); Ketone, Urine Negative (Negative); Leukocyte Negative Leu/uL (Negative); Nitrite Negative (Negative); Protein, Urine (Dipstick) Negative (Neg-Trace); RBC/HPF 0-3 HPF (0-3); Specific Gravity, Urine 1.007 (1.002-1.036); Squamous Epithelial 0-3 HPF (0-3); Urobilinogen Normal mg/dL (Less than 2); WBC/HPF 0-3 HPF (0-3); pH, Urine 6.5 (5.0-9.0)
[2022-07-31 17:10] LABS: Urine Culture Reflex No No
[2022-07-31] MEDS: Rosuvastatin 20 MG TAB PO SCH (20:58)
[2022-07-31] MEDS: Clopidogrel Bisulfate 75 MG TAB PO SCH (20:58)
[2022-07-31] MEDS: Apixaban 5 MG TAB PO SCH (20:59)
[2022-08-01 06:13] LABS: Anion Gap 12 mmol/L (10-20); BUN (Urea Nitrogen) 19 mg/dL (9.8-20.1); Calc. Creatinine Clearance 44 mL/min (70-130); Carbon Dioxide 29 mmol/L (23-31); Chloride 100 mmol/L (98-107); Estimated GFR 40; Glucose 125 mg/dL (83-110); Potassium 3.6 mmol/L (3.5-5.1); Sodium 137 mmol/L (136-145)
[2022-08-01] MEDS: Carvedilol 25 MG TAB PO SCH ×2 (09:14→16:04)
[2022-08-01] MEDS: Amiodarone 200 MG TAB PO SCH (09:15)
[2022-08-01] MEDS: Furosemide 40 MG TAB PO SCH ×2 (09:15→15:08)
[2022-08-01] MEDS: Apixaban 5 MG TAB PO SCH ×2 (09:15→21:08)
[2022-08-01] MEDS: Sertraline 100 MG TAB PO SCH (09:15)
[2022-08-01] MEDS: guaiFENesin/Codeine 200 mg/20 mg 10 ml Cup PO PRN (11:39)
[2022-08-01 12:29] LABS: Magnesium 1.5 mg/dL (1.6-2.6)
[2022-08-01] MEDS ORDERED: Magnesium Sulfate In Water 4 GM in Premix Bag 1 BAG IVPB SCH (16:30)
[2022-08-01] MEDS ORDERED: Magnesium Sulfate 4 GM in Sodium Chloride 0.9% 250 ML 250 ML IVPB SCH (16:30)
[2022-08-01] MEDS: Clopidogrel Bisulfate 75 MG TAB PO SCH (21:08)
[2022-08-01] MEDS: Rosuvastatin 20 MG TAB PO SCH (21:08)
[2022-08-02 04:55] LABS: #Basophils 0.1 thou/uL (0.0-0.2); #Eosinphils 0.2 thou/uL (0.0-0.7); #Lymphocytes 1.6 thou/uL (1.20-3.40); #Monocytes 0.6 thou/uL (0.11-0.59); #Neutrophils 3.1 thou/uL (1.40-6.50); %Basophils 0.9 % (0.0-1.0); %Eosinophils 3.7 % (0.0-10.0); %Lymphocytes 28.2 % (21.0-51.0); %Monocytes 11.2 % (0.0-10.0); Mean Corpuscular HGB CONC 30.8 g/dL (32.0-36.0); Mean Corpuscular Hemoglobin 31.4 pg (27.0-31.0); Mean Platelet Volume 10.6 fL (7.4-10.4); Platelet Count 126 10x3/uL (130-400); RBC Distribution Width 13.9 % (11.5-14.5); White Blood Cell (WBC) Count 5.5 10x3/uL (4.8-10.8)
[2022-08-02 05:12] LABS: Anion Gap 10 mmol/L (10-20); BUN (Urea Nitrogen) 23 mg/dL (9.8-20.1); Calc. Creatinine Clearance 37 mL/min (70-130); Calcium 8.1 mg/dL (7.8-10.44); Carbon Dioxide 31 mmol/L (23-31); Chloride 99 mmol/L (98-107); Estimated GFR 33; Glucose 118 mg/dL (83-110); Potassium 4.1 mmol/L (3.5-5.1); Sodium 136 mmol/L (136-145)
[2022-08-02] MEDS: Apixaban 5 MG TAB PO SCH ×2 (08:28→21:43)
[2022-08-02] MEDS: Sertraline 100 MG TAB PO SCH (08:28)
[2022-08-02] MEDS: Carvedilol 25 MG TAB PO SCH ×2 (08:28→17:56)
[2022-08-02] MEDS: Potassium Chloride 20 MEQ TAB PO SCH (08:28)
[2022-08-02] MEDS: Amiodarone 200 MG TAB PO SCH (08:28)
[2022-08-02] MEDS: Furosemide 40 MG TAB PO SCH (08:28)
[2022-08-02] MEDS: guaiFENesin/Codeine 200 mg/20 mg 10 ml Cup PO PRN (09:29)
[2022-08-02] MEDS ORDERED: Chloraseptic Spray 180 ml Bottle PO PRN (18:02)
[2022-08-02] MEDS ORDERED: guaiFENesin ER 600 MG TAB PO SCH (18:15)
[2022-08-02] MEDS ORDERED: Dextrose 5% in Water 1,000 ML IV PRN (18:17)
[2022-08-02] MEDS ORDERED: Dextrose 50% Abboject 50 ML SYRINGE SLOW IVP PRN (18:17)
[2022-08-02] MEDS ORDERED: HumaLOG 300 UNITS/3 ML VIAL SC PRN ×2 (18:17)
[2022-08-02] MEDS: guaiFENesin ER 600 MG TAB PO SCH (21:43)
[2022-08-02] MEDS: Rosuvastatin 20 MG TAB PO SCH (21:43)
[2022-08-02] MEDS: Clopidogrel Bisulfate 75 MG TAB PO SCH (21:43)
[2022-08-03 05:33] LABS: Anion Gap 16 mmol/L (10-20); BUN (Urea Nitrogen) 29 mg/dL (9.8-20.1); Calc. Creatinine Clearance 35 mL/min (70-130); Carbon Dioxide 22 mmol/L (23-31); Chloride 98 mmol/L (98-107); Estimated GFR 29; Glucose 115 mg/dL (83-110); Magnesium 2.2 mg/dL (1.6-2.6); Sodium 131 mmol/L (136-145)
[2022-08-03] MEDS ORDERED: Furosemide 40 MG TAB PO SCH (09:00)
[2022-08-03] MEDS: Amiodarone 200 MG TAB PO SCH (09:20)
[2022-08-03] MEDS: guaiFENesin ER 600 MG TAB PO SCH ×2 (09:20→20:28)
[2022-08-03] MEDS: Potassium Chloride 20 MEQ TAB PO SCH (09:20)
[2022-08-03] MEDS: Sertraline 100 MG TAB PO SCH (09:20)
[2022-08-03] MEDS: Carvedilol 25 MG TAB PO SCH ×2 (09:20→17:35)
[2022-08-03] MEDS: Apixaban 5 MG TAB PO SCH ×2 (09:20→20:28)
[2022-08-03] MEDS: Chloraseptic Spray 180 ml Bottle PO SCH ×2 (17:12→21:36)
[2022-08-03] MEDS: Rosuvastatin 20 MG TAB PO SCH (20:28)
[2022-08-03] MEDS: Clopidogrel Bisulfate 75 MG TAB PO SCH (20:28)
[2022-08-04 05:20] LABS: Anion Gap 12 mmol/L (10-20); BUN (Urea Nitrogen) 32 mg/dL (9.8-20.1); Calc. Creatinine Clearance 31 mL/min (70-130); Calcium 7.9 mg/dL (7.8-10.44); Carbon Dioxide 28 mmol/L (23-31); Chloride 96 mmol/L (98-107); Estimated GFR 24; Glucose 137 mg/dL (83-110); Potassium 4.4 mmol/L (3.5-5.1); Sodium 132 mmol/L (136-145)
[2022-08-04] MEDS: guaiFENesin ER 600 MG TAB PO SCH ×2 (09:16→22:04)
[2022-08-04] MEDS: Apixaban 5 MG TAB PO SCH ×2 (09:16→22:04)
[2022-08-04] MEDS: Carvedilol 25 MG TAB PO SCH ×2 (09:17→17:20)
[2022-08-04] MEDS: Sertraline 100 MG TAB PO SCH (09:18)
[2022-08-04] MEDS: Amiodarone 200 MG TAB PO SCH (09:19)
[2022-08-04] MEDS: Chloraseptic Spray 180 ml Bottle PO SCH ×2 (09:19→22:05)
[2022-08-04] MEDS: Sodium Chloride 0.9% 500 ML IV SCH (12:32)
[2022-08-04] MEDS: Rosuvastatin 20 MG TAB PO SCH (22:04)
[2022-08-04] MEDS: Clopidogrel Bisulfate 75 MG TAB PO SCH (22:05)
[2022-08-05 04:30] LABS: Anion Gap 13 mmol/L (10-20); BUN (Urea Nitrogen) 32 mg/dL (9.8-20.1); Calc. Creatinine Clearance 30 mL/min (70-130); Calcium 7.9 mg/dL (7.8-10.44); Carbon Dioxide 25 mmol/L (23-31); Chloride 96 mmol/L (98-107); Estimated GFR 24; Glucose 131 mg/dL (83-110); Potassium 4.2 mmol/L (3.5-5.1); Sodium 130 mmol/L (136-145)
[2022-08-05] MEDS: Sodium Chloride 0.9% 500 ML IV SCH (06:47)
[2022-08-05] MEDS: Carvedilol 25 MG TAB PO SCH (10:10)
[2022-08-05] MEDS: Apixaban 5 MG TAB PO SCH ×2 (10:11→20:52)
[2022-08-05] MEDS: Amiodarone 200 MG TAB PO SCH (10:11)
[2022-08-05] MEDS: guaiFENesin ER 600 MG TAB PO SCH ×2 (10:11→20:51)
[2022-08-05] MEDS: Sertraline 100 MG TAB PO SCH (10:12)
[2022-08-05] MEDS: Chloraseptic Spray 180 ml Bottle PO SCH ×2 (10:12→20:52)
[2022-08-05] MEDS ORDERED: Carvedilol 6.25 MG TAB PO SCH (10:15)
[2022-08-05] MEDS: Carvedilol 6.25 MG TAB PO SCH (18:19)
[2022-08-05] MEDS: Rosuvastatin 20 MG TAB PO SCH (20:51)
[2022-08-05] MEDS: Clopidogrel Bisulfate 75 MG TAB PO SCH (20:52)
[2022-08-06 05:23] LABS: Anion Gap 13 mmol/L (10-20); BUN (Urea Nitrogen) 28 mg/dL (9.8-20.1); Calc. Creatinine Clearance 31 mL/min (70-130); Calcium 8.1 mg/dL (7.8-10.44); Carbon Dioxide 27 mmol/L (23-31); Chloride 100 mmol/L (98-107); Estimated GFR 24; Glucose 85 mg/dL (83-110); Potassium 4.1 mmol/L (3.5-5.1); Sodium 136 mmol/L (136-145)
[2022-08-06] MEDS: Carvedilol 6.25 MG TAB PO SCH (09:05)
[2022-08-06] MEDS: Amiodarone 200 MG TAB PO SCH (09:05)
[2022-08-06] MEDS: guaiFENesin ER 600 MG TAB PO SCH (09:06)
[2022-08-06] MEDS: Chloraseptic Spray 180 ml Bottle PO SCH (09:06)
[2022-08-06] MEDS: Apixaban 5 MG TAB PO SCH (09:06)
[2022-08-06] MEDS: Sertraline 100 MG TAB PO SCH (09:06)
[2022-08-06 11:52] VITALS: TEMP 97.7
[2022-08-06 14:28] VITALS: BP 128/50
== END 2022-08-06 15:33 | disposition home health service (06) | DRG 291 ==
LOC: 2NO 03:03
PROVIDERS: ADMIT Family Medicine; ATTEND Family Medicine
PROC: 4B02XSZ Measurement of Cardiac Pacemaker, External Approach (ICD-10-PCS; principal; 2022-07-31)
DX: I13.0 Hypertensive heart and chronic kidney disease with heart failure and stage 1 through stage 4 chronic kidney disease, or unspecified chronic kidney disease (principal); I50.43 Acute on chronic combined systolic (congestive) and diastolic (congestive) heart failure; J96.01 Acute respiratory failure with hypoxia; E87.1 Hypo-osmolality and hyponatremia; N17.9 Acute kidney failure, unspecified; N18.4 Chronic kidney disease, stage 4 (severe); E83.42 Hypomagnesemia; I48.0 Paroxysmal atrial fibrillation; E11.22 Type 2 diabetes mellitus with diabetic chronic kidney disease; T50.1X5A Adverse effect of loop [high-ceiling] diuretics, initial encounter; D63.1 Anemia in chronic kidney disease; I25.10 Atherosclerotic heart disease of native coronary artery without angina pectoris; E78.00 Pure hypercholesterolemia, unspecified; I34.0 Nonrheumatic mitral (valve) insufficiency; Z95.1 Presence of aortocoronary bypass graft; Z88.7 Allergy status to serum and vaccine; Z79.899 Other long term (current) drug therapy; Z79.01 Long term (current) use of anticoagulants; Z90.49 Acquired absence of other specified parts of digestive tract; Z95.0 Presence of cardiac pacemaker; Z98.890 Other specified postprocedural states; Z91.199 Patient's noncompliance with other medical treatment and regimen due to unspecified reason
CPT/HCPCS: 36415; 36416; 80048; 81001; 82553; 83735; 83880; 85025; 93798; 94640; J1644; J2405; J3475; J7050; J7620; U0003; U0005

== ENCOUNTER 2022-08-14 20:45 | Inpatient (IN) | payer OTHER ==
[2022-08-14 21:16] LABS: #Eosinphils 0.2 thou/uL (0.0-0.7); #Monocytes 0.9 thou/uL (0.11-0.59); #Neutrophils 6.5 thou/uL (1.40-6.50); %Basophils 0.4 % (0.0-1.0); %Eosinophils 1.8 % (0.0-10.0); %Lymphocytes 11.8 % (21.0-51.0); %Monocytes 10.5 % (0.0-10.0); %Neutrophils 75.5 % (42.0-75.0); Hemoglobin 12.1 g/dL (12.0-16.0); Mean Corpuscular HGB CONC 32.1 g/dL (32.0-36.0); Mean Corpuscular Hemoglobin 31.1 pg (27.0-31.0); Mean Platelet Volume 10.5 fL (7.4-10.4); Platelet Count 173 10x3/uL (130-400); RBC Distribution Width 14.4 % (11.5-14.5); Red Blood Cell (RBC) Count 3.89 mill/uL (4.20-5.40); White Blood Cell (WBC) Count 8.6 10x3/uL (4.8-10.8)
[2022-08-14] MEDS ORDERED: Nitroglycerin 2% Ointment 1 INCH/1 GM Packet ONE (21:33)
[2022-08-14] MEDS ORDERED: Furosemide 40 MG/4 ML VIAL ONE (21:56)
[2022-08-14 22:16] LABS: Albumin 3.5 g/dL (3.4-4.8)
[2022-08-14 22:17] LABS: Chloride 102 mmol/L (98-107); Potassium 4.8 mmol/L (3.5-5.1); Sodium 136 mmol/L (136-145)
[2022-08-14 22:18] LABS: Calcium 8.3 mg/dL (7.8-10.44); Globulin 3.3 g/dL (2.4-3.5); Glucose 169 mg/dL (83-110); Protein, Total 6.8 g/dL (5.8-8.1)
[2022-08-14 22:20] LABS: Anion Gap 13 mmol/L (10-20); Bilirubin, Total 1.1 mg/dL (0.2-1.2); Carbon Dioxide 26 mmol/L (23-31)
[2022-08-14 22:21] LABS: Alkaline Phosphatase 201 U/L (40-110)
[2022-08-14 22:22] LABS: BUN (Urea Nitrogen) 27 mg/dL (9.8-20.1); Calc. Creatinine Clearance 0 mL/min (70-130); Estimated GFR 25
[2022-08-14 22:23] LABS: AST (SGOT) 50 U/L (5-34)
[2022-08-14 22:24] LABS: ALT (SGPT) 25 U/L (8-55)
[2022-08-14] MEDS ORDERED: Ondansetron PF 4 MG/2 ML Vial IVP PRN (23:53)
[2022-08-14] MEDS ORDERED: Ondansetron ODT 4 MG TAB PO PRN (23:53)
[2022-08-14] MEDS ORDERED: Acetaminophen 650 MG Suppository PR PRN (23:53)
[2022-08-15] MEDS ORDERED: Furosemide 40 MG/4 ML VIAL SLOW IVP SCH ×3 (00:15→15:30)
[2022-08-15] MEDS ORDERED: Dextrose 5% in Water 1,000 ML IV PRN (01:16)
[2022-08-15] MEDS ORDERED: HumaLOG 300 UNITS/3 ML VIAL SC PRN ×2 (01:16)
[2022-08-15] MEDS ORDERED: Dextrose 50% Abboject 50 ML SYRINGE SLOW IVP PRN (01:16)
[2022-08-15 01:42] LABS: Troponin I 0.033 ng/mL (< 0.028)
[2022-08-15 04:11] LABS: #Basophils 0.1 thou/uL (0.0-0.2); #Lymphocytes 0.9 thou/uL (1.20-3.40); #Monocytes 0.9 thou/uL (0.11-0.59); %Basophils 0.7 % (0.0-1.0); %Eosinophils 0.7 % (0.0-10.0); %Lymphocytes 12.9 % (21.0-51.0); %Monocytes 13.1 % (0.0-10.0); %Neutrophils 72.5 % (42.0-75.0); Hemoglobin 11.2 g/dL (12.0-16.0); Mean Corpuscular HGB CONC 32.8 g/dL (32.0-36.0); Mean Corpuscular Hemoglobin 32.2 pg (27.0-31.0); Mean Corpuscular Volume 98.1 fl (78.0-98.0); Mean Platelet Volume 10.2 fL (7.4-10.4); Platelet Count 142 10x3/uL (130-400); RBC Distribution Width 14.5 % (11.5-14.5); Red Blood Cell (RBC) Count 3.49 mill/uL (4.20-5.40); White Blood Cell (WBC) Count 6.9 10x3/uL (4.8-10.8)
[2022-08-15 04:23] LABS: Anion Gap 12 mmol/L (10-20); BUN (Urea Nitrogen) 27 mg/dL (9.8-20.1); Calc. Creatinine Clearance 0 mL/min (70-130); Calcium 8.3 mg/dL (7.8-10.44); Carbon Dioxide 27 mmol/L (23-31); Chloride 102 mmol/L (98-107); Estimated GFR 26; Glucose 135 mg/dL (83-110); Potassium 4.7 mmol/L (3.5-5.1); Sodium 136 mmol/L (136-145)
[2022-08-15 04:28] LABS: Troponin I 0.036 ng/mL (< 0.028)
[2022-08-15] MEDS ORDERED: ALPRAZolam 0.25 MG TAB PO PRN (07:49)
[2022-08-15] MEDS ORDERED: Apixaban 5 MG TAB PO SCH (09:00)
[2022-08-15] MEDS ORDERED: Furosemide 40 MG/4 ML VIAL ONE (09:00)
[2022-08-15] MEDS: Furosemide 40 MG/4 ML VIAL SLOW IVP SCH (09:22)
[2022-08-15 09:24] VITALS: BMI 34.9
[2022-08-15] MEDS: Amiodarone 200 MG TAB PO SCH (09:59)
[2022-08-15] MEDS: Sertraline 100 MG TAB PO SCH (09:59)
[2022-08-15] MEDS ORDERED: Empagliflozin 10 MG TAB PO SCH (15:30)
[2022-08-15] MEDS: Clopidogrel Bisulfate 75 MG TAB PO SCH (20:54)
[2022-08-15] MEDS: Rosuvastatin 20 MG TAB PO SCH (20:54)
[2022-08-15] MEDS: Apixaban 5 MG TAB PO SCH (20:54)
[2022-08-15] MEDS: Benzonatate 100 MG CAP PO PRN (20:55)
[2022-08-16 04:52] LABS: Anion Gap 13 mmol/L (10-20); BUN (Urea Nitrogen) 29 mg/dL (9.8-20.1); Calc. Creatinine Clearance 30 mL/min (70-130); Calcium 7.9 mg/dL (7.8-10.44); Carbon Dioxide 27 mmol/L (23-31); Chloride 100 mmol/L (98-107); Estimated GFR 26; Glucose 114 mg/dL (83-110); Potassium 3.6 mmol/L (3.5-5.1); Sodium 136 mmol/L (136-145)
[2022-08-16] MEDS: Carvedilol 6.25 MG TAB PO SCH ×2 (09:35→16:47)
[2022-08-16] MEDS: Apixaban 5 MG TAB PO SCH ×2 (09:35→20:23)
[2022-08-16] MEDS: Sertraline 100 MG TAB PO SCH (09:35)
[2022-08-16] MEDS: Benzonatate 100 MG CAP PO PRN ×2 (09:35→20:31)
[2022-08-16] MEDS: Amiodarone 200 MG TAB PO SCH (09:35)
[2022-08-16] MEDS: Empagliflozin 10 MG TAB PO SCH (09:36)
[2022-08-16] MEDS: Acetaminophen 325 MG TAB PO PRN (09:41)
[2022-08-16] MEDS: Furosemide 40 MG/4 ML VIAL SLOW IVP SCH (09:42)
[2022-08-16] MEDS ORDERED: Potassium Chloride 20 MEQ TAB PO SCH (10:15)
[2022-08-16] MEDS: guaiFENesin ER 600 MG TAB PO PRN (13:54)
[2022-08-16] MEDS ORDERED: Electrolyte Replacement Protocol 1 EACH FS SCH (18:15)
[2022-08-16] MEDS ORDERED: Magnesium 2 GM/50 ML(in water) 2 GM in Premix Bag 1 BAG IVPB SCH (19:00)
[2022-08-16] MEDS: Rosuvastatin 20 MG TAB PO SCH (20:23)
[2022-08-16] MEDS: Clopidogrel Bisulfate 75 MG TAB PO SCH (20:23)
[2022-08-17 05:22] LABS: Anion Gap 11 mmol/L (10-20); BUN (Urea Nitrogen) 28 mg/dL (9.8-20.1); Calc. Creatinine Clearance 29 mL/min (70-130); Carbon Dioxide 29 mmol/L (23-31); Chloride 98 mmol/L (98-107); Estimated GFR 25; Glucose 105 mg/dL (83-110); Magnesium 2.1 mg/dL (1.6-2.6); Potassium 3.9 mmol/L (3.5-5.1); Sodium 134 mmol/L (136-145)
[2022-08-17] MEDS: Mometasone 200 MCG/Formoterol 5 MCG 120 PUFF INHALER INH SCH ×2 (08:45→19:08)
[2022-08-17] MEDS: Acetaminophen 325 MG TAB PO PRN ×2 (08:54→21:47)
[2022-08-17] MEDS: Furosemide 40 MG/4 ML VIAL SLOW IVP SCH (08:55)
[2022-08-17] MEDS: Sertraline 100 MG TAB PO SCH (08:55)
[2022-08-17] MEDS: Amiodarone 200 MG TAB PO SCH (08:55)
[2022-08-17] MEDS: Carvedilol 6.25 MG TAB PO SCH ×3 (08:55→17:22)
[2022-08-17] MEDS: Empagliflozin 10 MG TAB PO SCH (08:55)
[2022-08-17] MEDS: guaiFENesin ER 600 MG TAB PO PRN ×2 (08:56→21:45)
[2022-08-17] MEDS: Apixaban 5 MG TAB PO SCH ×2 (08:56→21:31)
[2022-08-17] MEDS: Rosuvastatin 20 MG TAB PO SCH (21:31)
[2022-08-17] MEDS: Clopidogrel Bisulfate 75 MG TAB PO SCH (21:31)
[2022-08-17] MEDS: Benzonatate 100 MG CAP PO PRN (21:45)
[2022-08-17 22:48] LABS: Magnesium 2.1 mg/dL (1.6-2.6)
[2022-08-18 05:25] LABS: Anion Gap 12 mmol/L (10-20); BUN (Urea Nitrogen) 30 mg/dL (9.8-20.1); Calc. Creatinine Clearance 30 mL/min (70-130); Calcium 7.9 mg/dL (7.8-10.44); Carbon Dioxide 31 mmol/L (23-31); Chloride 98 mmol/L (98-107); Estimated GFR 25; Glucose 97 mg/dL (83-110); Potassium 3.5 mmol/L (3.5-5.1); Sodium 137 mmol/L (136-145)
[2022-08-18 05:30] LABS: #Eosinphils 0.2 thou/uL (0.0-0.7); #Lymphocytes 0.8 thou/uL (1.20-3.40); #Monocytes 0.6 thou/uL (0.11-0.59); #Neutrophils 2.5 thou/uL (1.40-6.50); %Basophils 0.7 % (0.0-1.0); %Eosinophils 4.6 % (0.0-10.0); %Lymphocytes 19.9 % (21.0-51.0); %Monocytes 13.7 % (0.0-10.0); Hemoglobin 10.6 g/dL (12.0-16.0); Mean Corpuscular HGB CONC 31.7 g/dL (32.0-36.0); Mean Corpuscular Hemoglobin 31.1 pg (27.0-31.0); Mean Corpuscular Volume 97.9 fl (78.0-98.0); Mean Platelet Volume 10.1 fL (7.4-10.4); Platelet Count 117 10x3/uL (130-400); RBC Distribution Width 14.6 % (11.5-14.5); Red Blood Cell (RBC) Count 3.42 mill/uL (4.20-5.40); White Blood Cell (WBC) Count 4.1 10x3/uL (4.8-10.8)
[2022-08-18] MEDS: Benzonatate 100 MG CAP PO PRN ×2 (07:00→20:38)
[2022-08-18] MEDS: Mometasone 200 MCG/Formoterol 5 MCG 120 PUFF INHALER INH SCH ×2 (07:19→19:14)
[2022-08-18] MEDS ORDERED: Potassium Chloride 20 MEQ TAB PO SCH ×2 (09:45→17:30)
[2022-08-18] MEDS: Carvedilol 6.25 MG TAB PO SCH ×2 (10:27→16:06)
[2022-08-18] MEDS: Apixaban 5 MG TAB PO SCH ×2 (10:28→20:39)
[2022-08-18] MEDS: Amiodarone 200 MG TAB PO SCH (10:28)
[2022-08-18] MEDS: Empagliflozin 10 MG TAB PO SCH (10:28)
[2022-08-18] MEDS: Sertraline 100 MG TAB PO SCH (10:29)
[2022-08-18] MEDS: Furosemide 40 MG/4 ML VIAL SLOW IVP SCH (10:29)
[2022-08-18] MEDS: guaiFENesin ER 600 MG TAB PO PRN (11:38)
[2022-08-18] MEDS ORDERED: guaiFENesin ER 600 MG TAB PO SCH (14:15)
[2022-08-18] MEDS ORDERED: Doxycycline 100 MG CAP PO SCH (14:30)
[2022-08-18] MEDS ORDERED: guaiFENesin/DM ER PO SCH (14:30)
[2022-08-18] MEDS ORDERED: Furosemide 40 MG/4 ML VIAL SLOW IVP SCH (17:30)
[2022-08-18] MEDS: Senokot S 8.6-50 MG TAB PO SCH (20:38)
[2022-08-18] MEDS: Acetaminophen 325 MG TAB PO PRN (20:38)
[2022-08-18] MEDS: Rosuvastatin 20 MG TAB PO SCH (20:38)
[2022-08-18] MEDS: guaiFENesin/DM ER PO SCH (20:38)
[2022-08-18] MEDS: Doxycycline 100 MG CAP PO SCH (20:39)
[2022-08-18] MEDS: Clopidogrel Bisulfate 75 MG TAB PO SCH (20:39)
[2022-08-19] MEDS: Acetaminophen 325 MG TAB PO PRN (00:52)
[2022-08-19 04:41] LABS: #Lymphocytes 1.1 thou/uL (1.20-3.40); #Monocytes 0.7 thou/uL (0.11-0.59); #Neutrophils 3.9 thou/uL (1.40-6.50); %Basophils 0.7 % (0.0-1.0); %Eosinophils 0.6 % (0.0-10.0); %Monocytes 11.8 % (0.0-10.0); Hemoglobin 10.6 g/dL (12.0-16.0); Mean Corpuscular HGB CONC 30.9 g/dL (32.0-36.0); Mean Corpuscular Hemoglobin 30.6 pg (27.0-31.0); Mean Corpuscular Volume 99.1 fl (78.0-98.0); Mean Platelet Volume 10.5 fL (7.4-10.4); Platelet Count 117 10x3/uL (130-400); RBC Distribution Width 14.7 % (11.5-14.5); Red Blood Cell (RBC) Count 3.46 mill/uL (4.20-5.40); White Blood Cell (WBC) Count 5.8 10x3/uL (4.8-10.8)
[2022-08-19 05:03] LABS: Anion Gap 14 mmol/L (10-20); BUN (Urea Nitrogen) 33 mg/dL (9.8-20.1); Calc. Creatinine Clearance 27 mL/min (70-130); Carbon Dioxide 26 mmol/L (23-31); Chloride 97 mmol/L (98-107); Potassium 4.3 mmol/L (3.5-5.1); Sodium 133 mmol/L (136-145)
[2022-08-19 05:04] LABS: Calcium 7.9 mg/dL (7.8-10.44); Estimated GFR 23; Glucose 120 mg/dL (83-110); Magnesium 1.8 mg/dL (1.6-2.6)
[2022-08-19] MEDS: Mometasone 200 MCG/Formoterol 5 MCG 120 PUFF INHALER INH SCH ×2 (07:14→18:54)
[2022-08-19] MEDS: Carvedilol 6.25 MG TAB PO SCH ×2 (09:51→17:32)
[2022-08-19] MEDS: Furosemide 40 MG/4 ML VIAL SLOW IVP SCH (09:52)
[2022-08-19] MEDS: Apixaban 5 MG TAB PO SCH ×2 (09:52→22:12)
[2022-08-19] MEDS: Empagliflozin 10 MG TAB PO SCH (09:52)
[2022-08-19] MEDS: Amiodarone 200 MG TAB PO SCH (09:52)
[2022-08-19] MEDS: Doxycycline 100 MG CAP PO SCH ×2 (09:52→22:13)
[2022-08-19] MEDS: Senokot S 8.6-50 MG TAB PO SCH ×2 (09:53→22:13)
[2022-08-19] MEDS: Sertraline 100 MG TAB PO SCH (09:53)
[2022-08-19] MEDS: guaiFENesin/DM ER PO SCH ×2 (09:53→22:12)
[2022-08-19] MEDS ORDERED: Cyanocobalamin (Vitamin B-12) 1,000 MCG TAB PO SCH (10:15)
[2022-08-19] MEDS ORDERED: Folic Acid 1 MG TAB PO SCH (10:15)
[2022-08-19] MEDS ORDERED: Magnesium 2 GM/50 ML(in water) 2 GM in Premix Bag 1 BAG IVPB SCH (10:15)
[2022-08-19] MEDS ORDERED: pyridOXINE 50 MG (B6) TAB PO SCH (10:15)
[2022-08-19] MEDS: Cholecalciferol 1,000 UNITS (25 MCG) TAB PO SCH (22:12)
[2022-08-19] MEDS: Clopidogrel Bisulfate 75 MG TAB PO SCH (22:12)
[2022-08-19] MEDS: Rosuvastatin 20 MG TAB PO SCH (22:13)
[2022-08-20 04:43] LABS: #Eosinphils 0.1 thou/uL (0.0-0.7); #Lymphocytes 1.3 thou/uL (1.20-3.40); #Monocytes 0.8 thou/uL (0.11-0.59); %Basophils 0.1 % (0.0-1.0); %Eosinophils 0.8 % (0.0-10.0); %Monocytes 8.8 % (0.0-10.0); %Neutrophils 76.4 % (42.0-75.0); Hemoglobin 10.6 g/dL (12.0-16.0); Mean Corpuscular HGB CONC 32.4 g/dL (32.0-36.0); Mean Corpuscular Hemoglobin 31.3 pg (27.0-31.0); Mean Corpuscular Volume 96.5 fl (78.0-98.0); Platelet Count 110 10x3/uL (130-400); RBC Distribution Width 14.6 % (11.5-14.5); White Blood Cell (WBC) Count 9.2 10x3/uL (4.8-10.8)
[2022-08-20 05:07] LABS: Anion Gap 13 mmol/L (10-20); BUN (Urea Nitrogen) 29 mg/dL (9.8-20.1); Calc. Creatinine Clearance 31 mL/min (70-130); Calcium 7.9 mg/dL (7.8-10.44); Carbon Dioxide 30 mmol/L (23-31); Chloride 96 mmol/L (98-107); Estimated GFR 27; Glucose 90 mg/dL (83-110); Potassium 3.6 mmol/L (3.5-5.1); Sodium 135 mmol/L (136-145)
[2022-08-20] MEDS: Mometasone 200 MCG/Formoterol 5 MCG 120 PUFF INHALER INH SCH ×2 (07:29→18:40)
[2022-08-20] MEDS: Senokot S 8.6-50 MG TAB PO SCH ×3 (09:02→22:33)
[2022-08-20] MEDS: Empagliflozin 10 MG TAB PO SCH (09:03)
[2022-08-20] MEDS: guaiFENesin/DM ER PO SCH ×2 (09:03→22:33)
[2022-08-20] MEDS: Carvedilol 6.25 MG TAB PO SCH ×2 (09:03→18:12)
[2022-08-20] MEDS: Cyanocobalamin (Vitamin B-12) 1,000 MCG TAB PO SCH (09:03)
[2022-08-20] MEDS: Sertraline 100 MG TAB PO SCH (09:03)
[2022-08-20] MEDS: Apixaban 5 MG TAB PO SCH ×2 (09:03→22:33)
[2022-08-20] MEDS: Amiodarone 200 MG TAB PO SCH (09:04)
[2022-08-20] MEDS: pyridOXINE 50 MG (B6) TAB PO SCH (09:04)
[2022-08-20] MEDS: Doxycycline 100 MG CAP PO SCH ×2 (09:04→22:33)
[2022-08-20] MEDS: Furosemide 40 MG/4 ML VIAL SLOW IVP SCH (09:04)
[2022-08-20] MEDS: Folic Acid 1 MG TAB PO SCH (09:04)
[2022-08-20] MEDS: Cholecalciferol 1,000 UNITS (25 MCG) TAB PO SCH (22:32)
[2022-08-20] MEDS: Rosuvastatin 20 MG TAB PO SCH (22:32)
[2022-08-20] MEDS: Clopidogrel Bisulfate 75 MG TAB PO SCH (22:33)
[2022-08-21 04:48] LABS: #Eosinphils 0.1 thou/uL (0.0-0.7); #Lymphocytes 1.6 thou/uL (1.20-3.40); #Monocytes 0.8 thou/uL (0.11-0.59); #Neutrophils 8.4 thou/uL (1.40-6.50); %Basophils 0.3 % (0.0-1.0); %Eosinophils 0.6 % (0.0-10.0); %Monocytes 7.6 % (0.0-10.0); %Neutrophils 76.5 % (42.0-75.0); Hemoglobin 9.9 g/dL (12.0-16.0); Mean Corpuscular HGB CONC 33.1 g/dL (32.0-36.0); Mean Corpuscular Hemoglobin 31.8 pg (27.0-31.0); Mean Corpuscular Volume 96.1 fl (78.0-98.0); Mean Platelet Volume 10.1 fL (7.4-10.4); Platelet Count 110 10x3/uL (130-400); RBC Distribution Width 14.4 % (11.5-14.5); Red Blood Cell (RBC) Count 3.12 mill/uL (4.20-5.40)
[2022-08-21 05:05] LABS: Anion Gap 10 mmol/L (10-20); BUN (Urea Nitrogen) 30 mg/dL (9.8-20.1); Calc. Creatinine Clearance 32 mL/min (70-130); Calcium 7.8 mg/dL (7.8-10.44); Carbon Dioxide 31 mmol/L (23-31); Chloride 96 mmol/L (98-107); Estimated GFR 29; Glucose 97 mg/dL (83-110); Potassium 3.4 mmol/L (3.5-5.1); Sodium 134 mmol/L (136-145)
[2022-08-21] MEDS ORDERED: Potassium Chloride 20 MEQ TAB PO SCH ×2 (05:30→18:00)
[2022-08-21] MEDS: Mometasone 200 MCG/Formoterol 5 MCG 120 PUFF INHALER INH SCH ×2 (07:14→18:42)
[2022-08-21] MEDS: Apixaban 5 MG TAB PO SCH (09:48)
[2022-08-21] MEDS: Cyanocobalamin (Vitamin B-12) 1,000 MCG TAB PO SCH (09:48)
[2022-08-21] MEDS: Amiodarone 200 MG TAB PO SCH (09:49)
[2022-08-21] MEDS: Folic Acid 1 MG TAB PO SCH (09:50)
[2022-08-21] MEDS: guaiFENesin/DM ER PO SCH ×2 (09:50→22:23)
[2022-08-21] MEDS: Empagliflozin 10 MG TAB PO SCH (09:50)
[2022-08-21] MEDS: Sertraline 100 MG TAB PO SCH (09:50)
[2022-08-21] MEDS: pyridOXINE 50 MG (B6) TAB PO SCH (09:51)
[2022-08-21] MEDS: Doxycycline 100 MG CAP PO SCH ×2 (09:51→22:23)
[2022-08-21] MEDS: Furosemide 40 MG/4 ML VIAL SLOW IVP SCH (09:51)
[2022-08-21] MEDS: Senokot S 8.6-50 MG TAB PO SCH ×2 (09:52→22:25)
[2022-08-21] MEDS: Carvedilol 6.25 MG TAB PO SCH ×2 (09:52→17:23)
[2022-08-21 10:24] LABS: Potassium 4.2 mmol/L (3.5-5.1)
[2022-08-21 13:10] LABS: Hemoglobin 10.7 g/dL (12.0-16.0)
[2022-08-21 13:24] LABS: INR-International Normal Ratio 2.2; Prothrombin Time 25.4 sec (12.0-14.7)
[2022-08-21] MEDS ORDERED: Furosemide 40 MG/4 ML VIAL SLOW IVP SCH (18:00)
[2022-08-21] MEDS: Cholecalciferol 1,000 UNITS (25 MCG) TAB PO SCH (22:23)
[2022-08-21] MEDS: Rosuvastatin 20 MG TAB PO SCH (22:24)
[2022-08-21] MEDS: Benzonatate 100 MG CAP PO PRN (22:25)
[2022-08-21] MEDS: Acetaminophen 325 MG TAB PO PRN (22:28)
[2022-08-22 05:08] LABS: #Eosinphils 0.1 thou/uL (0.0-0.7); #Lymphocytes 1.6 thou/uL (1.20-3.40); #Monocytes 0.9 thou/uL (0.11-0.59); #Neutrophils 6.2 thou/uL (1.40-6.50); %Basophils 0.4 % (0.0-1.0); %Eosinophils 1.5 % (0.0-10.0); %Monocytes 9.9 % (0.0-10.0); %Neutrophils 70.3 % (42.0-75.0); Hemoglobin 10.3 g/dL (12.0-16.0); Mean Corpuscular HGB CONC 31.5 g/dL (32.0-36.0); Mean Corpuscular Hemoglobin 30.7 pg (27.0-31.0); Mean Corpuscular Volume 97.6 fl (78.0-98.0); Mean Platelet Volume 10.3 fL (7.4-10.4); Platelet Count 125 10x3/uL (130-400); RBC Distribution Width 14.4 % (11.5-14.5); Red Blood Cell (RBC) Count 3.36 mill/uL (4.20-5.40); White Blood Cell (WBC) Count 8.8 10x3/uL (4.8-10.8)
[2022-08-22 05:33] LABS: Anion Gap 11 mmol/L (10-20); BUN (Urea Nitrogen) 31 mg/dL (9.8-20.1); Calc. Creatinine Clearance 33 mL/min (70-130); Calcium 8.3 mg/dL (7.8-10.44); Carbon Dioxide 32 mmol/L (23-31); Chloride 96 mmol/L (98-107); Estimated GFR 30; Glucose 95 mg/dL (83-110); Potassium 3.9 mmol/L (3.5-5.1); Sodium 135 mmol/L (136-145)
[2022-08-22] MEDS: Mometasone 200 MCG/Formoterol 5 MCG 120 PUFF INHALER INH SCH ×2 (07:15→18:57)
[2022-08-22] MEDS: Carvedilol 6.25 MG TAB PO SCH ×2 (09:43→16:43)
[2022-08-22] MEDS: Amiodarone 200 MG TAB PO SCH (09:43)
[2022-08-22] MEDS: Empagliflozin 10 MG TAB PO SCH (09:44)
[2022-08-22] MEDS: Doxycycline 100 MG CAP PO SCH ×2 (09:44→20:46)
[2022-08-22] MEDS: guaiFENesin/DM ER PO SCH ×2 (09:44→20:46)
[2022-08-22] MEDS: Cyanocobalamin (Vitamin B-12) 1,000 MCG TAB PO SCH (09:44)
[2022-08-22] MEDS: Folic Acid 1 MG TAB PO SCH (09:44)
[2022-08-22] MEDS: pyridOXINE 50 MG (B6) TAB PO SCH (09:44)
[2022-08-22] MEDS: Senokot S 8.6-50 MG TAB PO SCH ×2 (09:44→20:45)
[2022-08-22] MEDS: Furosemide 40 MG/4 ML VIAL SLOW IVP SCH (09:44)
[2022-08-22] MEDS: Sertraline 100 MG TAB PO SCH (09:45)
[2022-08-22] MEDS ORDERED: Pantoprazole 40 MG VIAL IVP SCH (12:15)
[2022-08-22 12:44] LABS: Hemoglobin 11.1 g/dL (12.0-16.0); Platelet Count 143 10x3/uL (130-400)
[2022-08-22 20:32] LABS: Hemoglobin 11.4 g/dL (12.0-16.0); Platelet Count 154 10x3/uL (130-400)
[2022-08-22] MEDS: Pantoprazole 40 MG VIAL IVP SCH (20:44)
[2022-08-22] MEDS: Cholecalciferol 1,000 UNITS (25 MCG) TAB PO SCH (20:45)
[2022-08-22] MEDS: Rosuvastatin 10 MG TAB PO SCH (20:46)
[2022-08-23 04:43] LABS: #Eosinphils 0.2 thou/uL (0.0-0.7); #Lymphocytes 1.7 thou/uL (1.20-3.40); #Monocytes 0.9 thou/uL (0.11-0.59); #Neutrophils 5.8 thou/uL (1.40-6.50); %Basophils 0.3 % (0.0-1.0); %Lymphocytes 19.4 % (21.0-51.0); %Monocytes 10.5 % (0.0-10.0); %Neutrophils 67.9 % (42.0-75.0); Mean Corpuscular HGB CONC 31.9 g/dL (32.0-36.0); Mean Corpuscular Hemoglobin 31.3 pg (27.0-31.0); Mean Corpuscular Volume 98.1 fl (78.0-98.0); Mean Platelet Volume 9.7 fL (7.4-10.4); Platelet Count 157 10x3/uL (130-400); RBC Distribution Width 14.2 % (11.5-14.5); White Blood Cell (WBC) Count 8.6 10x3/uL (4.8-10.8)
[2022-08-23 05:10] LABS: Anion Gap 14 mmol/L (10-20); Calc. Creatinine Clearance 33 mL/min (70-130); Calcium 8.3 mg/dL (7.8-10.44); Carbon Dioxide 30 mmol/L (23-31); Chloride 96 mmol/L (98-107); Estimated GFR 31; Glucose 110 mg/dL (83-110); Magnesium 1.9 mg/dL (1.6-2.6); Potassium 3.7 mmol/L (3.5-5.1); Sodium 136 mmol/L (136-145)
[2022-08-23 07:19] LABS: BUN (Urea Nitrogen) 28 mg/dL (9.8-20.1)
[2022-08-23] MEDS: Mometasone 200 MCG/Formoterol 5 MCG 120 PUFF INHALER INH SCH ×2 (07:24→18:29)
[2022-08-23] MEDS ORDERED: Magnesium 2 GM/50 ML(in water) 2 GM in Premix Bag 1 BAG IVPB SCH (08:00)
[2022-08-23] MEDS: Carvedilol 6.25 MG TAB PO SCH ×2 (08:36→16:05)
[2022-08-23] MEDS: Amiodarone 200 MG TAB PO SCH (08:38)
[2022-08-23] MEDS: Folic Acid 1 MG TAB PO SCH (08:39)
[2022-08-23] MEDS: Empagliflozin 10 MG TAB PO SCH (08:39)
[2022-08-23] MEDS: guaiFENesin/DM ER PO SCH ×2 (08:39→21:02)
[2022-08-23] MEDS: Furosemide 40 MG/4 ML VIAL SLOW IVP SCH (08:39)
[2022-08-23] MEDS: Cyanocobalamin (Vitamin B-12) 1,000 MCG TAB PO SCH (08:39)
[2022-08-23] MEDS: Sertraline 100 MG TAB PO SCH (08:40)
[2022-08-23] MEDS: pyridOXINE 50 MG (B6) TAB PO SCH (08:40)
[2022-08-23] MEDS: Pantoprazole 40 MG VIAL IVP SCH (08:40)
[2022-08-23] MEDS: Rosuvastatin 10 MG TAB PO SCH (21:01)
[2022-08-23] MEDS: Cholecalciferol 1,000 UNITS (25 MCG) TAB PO SCH (21:02)
[2022-08-24 05:14] LABS: #Eosinphils 0.2 thou/uL (0.0-0.7); #Lymphocytes 1.7 thou/uL (1.20-3.40); #Monocytes 0.9 thou/uL (0.11-0.59); #Neutrophils 6.4 thou/uL (1.40-6.50); %Basophils 0.3 % (0.0-1.0); %Eosinophils 2.7 % (0.0-10.0); %Lymphocytes 18.1 % (21.0-51.0); %Monocytes 9.6 % (0.0-10.0); %Neutrophils 69.3 % (42.0-75.0); Hemoglobin 11.3 g/dL (12.0-16.0); Mean Corpuscular HGB CONC 32.3 g/dL (32.0-36.0); Mean Corpuscular Hemoglobin 31.4 pg (27.0-31.0); Mean Platelet Volume 9.7 fL (7.4-10.4); Platelet Count 185 10x3/uL (130-400); RBC Distribution Width 14.4 % (11.5-14.5); Red Blood Cell (RBC) Count 3.59 mill/uL (4.20-5.40); White Blood Cell (WBC) Count 9.2 10x3/uL (4.8-10.8)
[2022-08-24 05:25] LABS: Anion Gap 14 mmol/L (10-20); BUN (Urea Nitrogen) 31 mg/dL (9.8-20.1); Calc. Creatinine Clearance 30 mL/min (70-130); Calcium 8.2 mg/dL (7.8-10.44); Carbon Dioxide 31 mmol/L (23-31); Chloride 96 mmol/L (98-107); Estimated GFR 30; Glucose 113 mg/dL (83-110); Potassium 3.6 mmol/L (3.5-5.1); Sodium 137 mmol/L (136-145)
[2022-08-24] MEDS: Mometasone 200 MCG/Formoterol 5 MCG 120 PUFF INHALER INH SCH ×2 (06:58→18:34)
[2022-08-24] MEDS: Carvedilol 6.25 MG TAB PO SCH ×2 (08:51→16:30)
[2022-08-24] MEDS: Amiodarone 200 MG TAB PO SCH (08:51)
[2022-08-24] MEDS: Folic Acid 1 MG TAB PO SCH (08:52)
[2022-08-24] MEDS: Empagliflozin 10 MG TAB PO SCH (08:52)
[2022-08-24] MEDS: guaiFENesin/DM ER PO SCH ×2 (08:52→20:44)
[2022-08-24] MEDS: Cyanocobalamin (Vitamin B-12) 1,000 MCG TAB PO SCH (08:52)
[2022-08-24] MEDS: Sertraline 100 MG TAB PO SCH (08:53)
[2022-08-24] MEDS: pyridOXINE 50 MG (B6) TAB PO SCH (08:53)
[2022-08-24] MEDS: Furosemide 40 MG/4 ML VIAL SLOW IVP SCH (08:56)
[2022-08-24] MEDS ORDERED: Clopidogrel Bisulfate 75 MG TAB PO SCH (09:30)
[2022-08-24] MEDS ORDERED: Apixaban 2.5 MG TAB PO SCH (09:30)
[2022-08-24] MEDS: Cholecalciferol 1,000 UNITS (25 MCG) TAB PO SCH (20:43)
[2022-08-24] MEDS: Rosuvastatin 10 MG TAB PO SCH (20:44)
[2022-08-24] MEDS: Docusate 100 MG CAP PO SCH (20:44)
[2022-08-25 05:56] LABS: #Eosinphils 0.3 thou/uL (0.0-0.7); #Lymphocytes 1.4 thou/uL (1.20-3.40); #Monocytes 0.8 thou/uL (0.11-0.59); %Basophils 0.5 % (0.0-1.0); %Eosinophils 3.2 % (0.0-10.0); %Lymphocytes 16.1 % (21.0-51.0); %Monocytes 9.4 % (0.0-10.0); %Neutrophils 70.7 % (42.0-75.0); Hemoglobin 10.5 g/dL (12.0-16.0); Mean Corpuscular HGB CONC 31.5 g/dL (32.0-36.0); Mean Corpuscular Hemoglobin 30.8 pg (27.0-31.0); Mean Corpuscular Volume 97.8 fl (78.0-98.0); Mean Platelet Volume 9.5 fL (7.4-10.4); Platelet Count 199 10x3/uL (130-400); RBC Distribution Width 14.4 % (11.5-14.5); Red Blood Cell (RBC) Count 3.39 mill/uL (4.20-5.40); White Blood Cell (WBC) Count 8.5 10x3/uL (4.8-10.8)
[2022-08-25 06:26] LABS: Anion Gap 14 mmol/L (10-20); BUN (Urea Nitrogen) 31 mg/dL (9.8-20.1); Calc. Creatinine Clearance 31 mL/min (70-130); Calcium 8.1 mg/dL (7.8-10.44); Carbon Dioxide 27 mmol/L (23-31); Chloride 96 mmol/L (98-107); Estimated GFR 31; Glucose 134 mg/dL (83-110); Magnesium 2.1 mg/dL (1.6-2.6); Potassium 3.9 mmol/L (3.5-5.1); Sodium 133 mmol/L (136-145)
[2022-08-25] MEDS: Mometasone 200 MCG/Formoterol 5 MCG 120 PUFF INHALER INH SCH ×2 (07:49→18:46)
[2022-08-25] MEDS ORDERED: Torsemide 20 MG TAB PO SCH ×2 (09:00→11:00)
[2022-08-25] MEDS: Clopidogrel Bisulfate 75 MG TAB PO SCH (09:15)
[2022-08-25] MEDS: Carvedilol 6.25 MG TAB PO SCH ×2 (09:15→16:51)
[2022-08-25] MEDS: Amiodarone 200 MG TAB PO SCH (09:16)
[2022-08-25] MEDS: Sertraline 100 MG TAB PO SCH (09:16)
[2022-08-25] MEDS: Apixaban 2.5 MG TAB PO SCH ×2 (09:16→20:47)
[2022-08-25] MEDS: Cyanocobalamin (Vitamin B-12) 1,000 MCG TAB PO SCH (09:16)
[2022-08-25] MEDS: Folic Acid 1 MG TAB PO SCH (09:16)
[2022-08-25] MEDS: pyridOXINE 50 MG (B6) TAB PO SCH (09:17)
[2022-08-25] MEDS: Docusate 100 MG CAP PO SCH ×2 (09:17→20:46)
[2022-08-25] MEDS: guaiFENesin/DM ER PO SCH ×2 (09:17→20:47)
[2022-08-25] MEDS: Empagliflozin 10 MG TAB PO SCH (09:17)
[2022-08-25] MEDS ORDERED: Potassium Chloride 20 MEQ TAB PO SCH (12:00)
[2022-08-25] MEDS: Cholecalciferol 1,000 UNITS (25 MCG) TAB PO SCH (20:46)
[2022-08-25] MEDS: Rosuvastatin 10 MG TAB PO SCH (20:47)
[2022-08-26 05:10] LABS: #Eosinphils 0.3 thou/uL (0.0-0.7); #Lymphocytes 1.7 thou/uL (1.20-3.40); #Neutrophils 6.2 thou/uL (1.40-6.50); %Basophils 0.3 % (0.0-1.0); %Eosinophils 3.4 % (0.0-10.0); %Lymphocytes 18.7 % (21.0-51.0); %Monocytes 10.8 % (0.0-10.0); %Neutrophils 66.8 % (42.0-75.0); Hemoglobin 10.6 g/dL (12.0-16.0); Mean Corpuscular HGB CONC 32.3 g/dL (32.0-36.0); Mean Corpuscular Hemoglobin 31.2 pg (27.0-31.0); Mean Corpuscular Volume 96.7 fl (78.0-98.0); Mean Platelet Volume 9.2 fL (7.4-10.4); Platelet Count 206 10x3/uL (130-400); RBC Distribution Width 14.4 % (11.5-14.5); White Blood Cell (WBC) Count 9.2 10x3/uL (4.8-10.8)
[2022-08-26 05:28] LABS: Anion Gap 15 mmol/L (10-20); BUN (Urea Nitrogen) 36 mg/dL (9.8-20.1); Calc. Creatinine Clearance 30 mL/min (70-130); Calcium 8.2 mg/dL (7.8-10.44); Carbon Dioxide 29 mmol/L (23-31); Chloride 97 mmol/L (98-107); Estimated GFR 31; Glucose 134 mg/dL (83-110); Sodium 137 mmol/L (136-145)
[2022-08-26] MEDS: Mometasone 200 MCG/Formoterol 5 MCG 120 PUFF INHALER INH SCH ×2 (07:35→18:48)
[2022-08-26] MEDS: Carvedilol 6.25 MG TAB PO SCH ×2 (09:18→17:05)
[2022-08-26] MEDS: Potassium Chloride 20 MEQ TAB PO SCH (09:19)
[2022-08-26] MEDS: Amiodarone 200 MG TAB PO SCH (09:19)
[2022-08-26] MEDS: Clopidogrel Bisulfate 75 MG TAB PO SCH (09:20)
[2022-08-26] MEDS: Apixaban 2.5 MG TAB PO SCH ×2 (09:20→21:47)
[2022-08-26] MEDS: Empagliflozin 10 MG TAB PO SCH (09:21)
[2022-08-26] MEDS: Cyanocobalamin (Vitamin B-12) 1,000 MCG TAB PO SCH (09:21)
[2022-08-26] MEDS: Docusate 100 MG CAP PO SCH (09:21)
[2022-08-26] MEDS: Folic Acid 1 MG TAB PO SCH (09:21)
[2022-08-26] MEDS: Sertraline 100 MG TAB PO SCH (09:22)
[2022-08-26] MEDS: guaiFENesin/DM ER PO SCH ×2 (09:22→21:47)
[2022-08-26] MEDS: Torsemide 20 MG TAB PO SCH (09:22)
[2022-08-26] MEDS: pyridOXINE 50 MG (B6) TAB PO SCH (09:22)
[2022-08-26] MEDS: Acetaminophen 325 MG TAB PO PRN (11:41)
[2022-08-26] MEDS ORDERED: Senokot S 8.6-50 MG TAB PO SCH (21:00)
[2022-08-26] MEDS: Rosuvastatin 10 MG TAB PO SCH (21:47)
[2022-08-26] MEDS: Cholecalciferol 1,000 UNITS (25 MCG) TAB PO SCH (21:47)
[2022-08-26] MEDS: Senokot S 8.6-50 MG TAB PO SCH (21:47)
[2022-08-27] MEDS: Acetaminophen 325 MG TAB PO PRN (04:16)
[2022-08-27 04:56] LABS: #Basophils 0.1 thou/uL (0.0-0.2); #Eosinphils 0.4 thou/uL (0.0-0.7); #Lymphocytes 1.6 thou/uL (1.20-3.40); #Monocytes 1.1 thou/uL (0.11-0.59); #Neutrophils 7.3 thou/uL (1.40-6.50); %Basophils 0.7 % (0.0-1.0); %Eosinophils 3.8 % (0.0-10.0); %Lymphocytes 15.3 % (21.0-51.0); %Monocytes 10.5 % (0.0-10.0); %Neutrophils 69.7 % (42.0-75.0); Hemoglobin 11.1 g/dL (12.0-16.0); Mean Corpuscular HGB CONC 31.8 g/dL (32.0-36.0); Mean Corpuscular Hemoglobin 30.7 pg (27.0-31.0); Mean Corpuscular Volume 96.6 fl (78.0-98.0); Mean Platelet Volume 9.5 fL (7.4-10.4); Platelet Count 213 10x3/uL (130-400); RBC Distribution Width 14.7 % (11.5-14.5); Red Blood Cell (RBC) Count 3.63 mill/uL (4.20-5.40); White Blood Cell (WBC) Count 10.5 10x3/uL (4.8-10.8)
[2022-08-27 05:13] LABS: ALT (SGPT) 37 U/L (8-55); AST (SGOT) 71 U/L (5-34); Albumin 3.1 g/dL (3.4-4.8); Alkaline Phosphatase 209 U/L (40-110); Anion Gap 15 mmol/L (10-20); BUN (Urea Nitrogen) 42 mg/dL (9.8-20.1); Bilirubin, Total 0.6 mg/dL (0.2-1.2); Calc. Creatinine Clearance 26 mL/min (70-130); Calcium 8.5 mg/dL (7.8-10.44); Carbon Dioxide 29 mmol/L (23-31); Chloride 96 mmol/L (98-107); Estimated GFR 25; Globulin 3.6 g/dL (2.4-3.5); Glucose 146 mg/dL (83-110); Potassium 4.5 mmol/L (3.5-5.1); Protein, Total 6.7 g/dL (5.8-8.1); Sodium 135 mmol/L (136-145)
[2022-08-27] MEDS: Mometasone 200 MCG/Formoterol 5 MCG 120 PUFF INHALER INH SCH (07:18)
[2022-08-27] MEDS: pyridOXINE 50 MG (B6) TAB PO SCH (09:34)
[2022-08-27] MEDS: Potassium Chloride 20 MEQ TAB PO SCH (09:35)
[2022-08-27] MEDS: Apixaban 2.5 MG TAB PO SCH (09:35)
[2022-08-27] MEDS: Carvedilol 6.25 MG TAB PO SCH ×2 (09:35→16:22)
[2022-08-27] MEDS: Senokot S 8.6-50 MG TAB PO SCH (09:35)
[2022-08-27] MEDS: Clopidogrel Bisulfate 75 MG TAB PO SCH (09:35)
[2022-08-27] MEDS: Folic Acid 1 MG TAB PO SCH (09:35)
[2022-08-27] MEDS: guaiFENesin/DM ER PO SCH (09:36)
[2022-08-27] MEDS: Cyanocobalamin (Vitamin B-12) 1,000 MCG TAB PO SCH (09:36)
[2022-08-27] MEDS: Torsemide 20 MG TAB PO SCH (09:36)
[2022-08-27] MEDS: Sertraline 100 MG TAB PO SCH (09:36)
[2022-08-27] MEDS: Empagliflozin 10 MG TAB PO SCH (09:37)
[2022-08-27] MEDS: Amiodarone 200 MG TAB PO SCH (09:44)
[2022-08-27] MEDS ORDERED: Amiodarone 200 MG TAB PO SCH (09:45)
[2022-08-27 16:22] VITALS: BP 128/60
[2022-08-27 17:34] VITALS: TEMP 98.1
[2022-08-28] MEDS ORDERED: Amiodarone 200 MG TAB PO SCH (09:00)
== END 2022-08-27 16:00 | disposition home health service (06) | DRG 291 ==
LOC: ERS 20:45 → ERHOLD 22:19 → 2NO 08-15 14:24
PROVIDERS: ADMIT Internal Medicine; ATTEND Internal Medicine
DX: I13.0 Hypertensive heart and chronic kidney disease with heart failure and stage 1 through stage 4 chronic kidney disease, or unspecified chronic kidney disease (principal); I50.43 Acute on chronic combined systolic (congestive) and diastolic (congestive) heart failure; J96.01 Acute respiratory failure with hypoxia; D62 Acute posthemorrhagic anemia; N18.4 Chronic kidney disease, stage 4 (severe); E87.1 Hypo-osmolality and hyponatremia; I47.1 Supraventricular tachycardia; K92.1 Melena; N17.9 Acute kidney failure, unspecified; E83.42 Hypomagnesemia; E11.22 Type 2 diabetes mellitus with diabetic chronic kidney disease; E66.9 Obesity, unspecified; I48.0 Paroxysmal atrial fibrillation; K76.1 Chronic passive congestion of liver; Z96.641 Presence of right artificial hip joint; E78.00 Pure hypercholesterolemia, unspecified; I25.10 Atherosclerotic heart disease of native coronary artery without angina pectoris; Z68.30 Body mass index [BMI] 30.0-30.9, adult; Z95.1 Presence of aortocoronary bypass graft; Z88.7 Allergy status to serum and vaccine; Z79.899 Other long term (current) drug therapy; Z79.02 Long term (current) use of antithrombotics/antiplatelets; Z79.01 Long term (current) use of anticoagulants; Z90.49 Acquired absence of other specified parts of digestive tract; Z90.710 Acquired absence of both cervix and uterus
CPT/HCPCS: 36415; 36416; 71045; 80048; 80053; 83735; 83880; 84484; 85025; 85610; 86850; 86900; 86901; 87811; 93005; 93010; 93798; 94640; 96374; 97139; C9113; J1940; J3475; J7620; U0003; U0005

== ENCOUNTER 2023-03-03 11:44 | Inpatient (IN) | payer OTHER ==
[2023-03-03 12:17] LABS: #Basophils 0.1 thou/uL (0.0-0.2); #Eosinphils 0.2 thou/uL (0.0-0.7); #Monocytes 0.6 thou/uL (0.11-0.59); #Neutrophils 3.8 thou/uL (1.40-6.50); %Basophils 1.1 % (0.0-1.0); %Eosinophils 3.4 % (0.0-10.0); %Lymphocytes 15.2 % (21.0-51.0); %Monocytes 11.6 % (0.0-10.0); %Neutrophils 68.3 % (42.0-75.0); Hemoglobin 10.9 g/dL (12.0-16.0); Mean Corpuscular HGB CONC 32.6 g/dL (32.0-36.0); Mean Corpuscular Hemoglobin 31.1 pg (27.0-31.0); Mean Corpuscular Volume 95.4 fl (78.0-98.0); Mean Platelet Volume 12.3 fL (7.4-10.4); Platelet Count 132 10x3/uL (130-400); RBC Distribution Width 16.8 % (11.5-14.5); White Blood Cell (WBC) Count 5.5 10x3/uL (4.8-10.8)
[2023-03-03 12:36] LABS: ALT (SGPT) 11 U/L (8-55); AST (SGOT) 23 U/L (5-34); Albumin 3.8 g/dL (3.4-4.8); Alkaline Phosphatase 200 U/L (40-110); Anion Gap 15 mmol/L (10-20); BUN (Urea Nitrogen) 32 mg/dL (9.8-20.1); Bilirubin, Total 1.4 mg/dL (0.2-1.2); Calc. Creatinine Clearance 0 mL/min (70-130); Calcium 8.7 mg/dL (7.8-10.44); Carbon Dioxide 27 mmol/L (23-31); Chloride 95 mmol/L (98-107); Estimated GFR 23; Globulin 3.1 g/dL (2.4-3.5); Glucose 197 mg/dL (83-110); Lipase 75 U/L (8-78); Potassium 4.1 mmol/L (3.5-5.1); Protein, Total 6.9 g/dL (5.8-8.1); Sodium 133 mmol/L (136-145)
[2023-03-03] MEDS ORDERED: Furosemide 40 MG/4 ML VIAL SLOW IVP SCH (14:15)
[2023-03-03] MEDS ORDERED: HumaLOG 300 UNITS/3 ML VIAL SC PRN (15:17)
[2023-03-03] MEDS ORDERED: Dextrose 5% in Water 1,000 ML IV PRN (15:17)
[2023-03-03] MEDS ORDERED: Nitroglycerin 0.4 MG TAB (25 Tab Bottle) SL PRN (15:17)
[2023-03-03] MEDS ORDERED: Glucagon 1 MG/ML KIT IM PRN (15:17)
[2023-03-03] MEDS ORDERED: Dextrose 50% Abboject 50 ML SYRINGE SLOW IVP PRN (15:17)
[2023-03-03 15:18] LABS: Troponin I 0.011 ng/mL (< 0.028)
[2023-03-03 15:47] VITALS: BMI 37.3
[2023-03-03] MEDS: Acetaminophen 325 MG TAB PO PRN (17:40)
[2023-03-03] MEDS: Carvedilol 6.25 MG TAB PO SCH (20:03)
[2023-03-03] MEDS: Rosuvastatin 10 MG TAB PO SCH (20:03)
[2023-03-03] MEDS: Apixaban 2.5 MG TAB PO SCH (20:03)
[2023-03-03 20:18] LABS: Troponin I 0.015 ng/mL (< 0.028)
[2023-03-04] MEDS ORDERED: Furosemide 20 MG/2 ML VIAL SLOW IVP SCH (06:00)
[2023-03-04] MEDS: Acetaminophen 325 MG TAB PO PRN (06:53)
[2023-03-04] MEDS: Apixaban 2.5 MG TAB PO SCH ×2 (08:08→21:42)
[2023-03-04] MEDS: Carvedilol 6.25 MG TAB PO SCH ×2 (09:42→21:42)
[2023-03-04] MEDS: Furosemide 40 MG/4 ML VIAL SLOW IVP SCH (15:18)
[2023-03-04] MEDS: Rosuvastatin 10 MG TAB PO SCH (21:42)
[2023-03-05] MEDS: Furosemide 40 MG/4 ML VIAL SLOW IVP SCH ×2 (05:19→14:54)
[2023-03-05 05:43] LABS: #Basophils 0.1 thou/uL (0.0-0.2); #Eosinphils 0.2 thou/uL (0.0-0.7); #Monocytes 0.8 thou/uL (0.11-0.59); %Basophils 0.8 % (0.0-1.0); %Eosinophils 3.3 % (0.0-10.0); %Lymphocytes 16.4 % (21.0-51.0); %Monocytes 13.1 % (0.0-10.0); %Neutrophils 66.1 % (42.0-75.0); Hemoglobin 10.3 g/dL (12.0-16.0); Mean Corpuscular HGB CONC 33.2 g/dL (32.0-36.0); Mean Corpuscular Hemoglobin 31.5 pg (27.0-31.0); Mean Corpuscular Volume 94.8 fl (78.0-98.0); Mean Platelet Volume 12.2 fL (7.4-10.4); Platelet Count 126 10x3/uL (130-400); RBC Distribution Width 16.8 % (11.5-14.5); Red Blood Cell (RBC) Count 3.27 mill/uL (4.20-5.40); White Blood Cell (WBC) Count 6.1 10x3/uL (4.8-10.8)
[2023-03-05 06:06] LABS: Anion Gap 14 mmol/L (10-20); BUN (Urea Nitrogen) 39 mg/dL (9.8-20.1); Calc. Creatinine Clearance 29 mL/min (70-130); Calcium 8.4 mg/dL (7.8-10.44); Carbon Dioxide 26 mmol/L (23-31); Chloride 94 mmol/L (98-107); Estimated GFR 23; Glucose 120 mg/dL (83-110); Potassium 3.9 mmol/L (3.5-5.1); Sodium 130 mmol/L (136-145)
[2023-03-05] MEDS: Amiodarone 200 MG TAB PO SCH (09:07)
[2023-03-05] MEDS: Escitalopram Oxalate 10 mg Tablet PO SCH (09:07)
[2023-03-05] MEDS: Apixaban 2.5 MG TAB PO SCH ×2 (09:08→20:38)
[2023-03-05] MEDS: Carvedilol 6.25 MG TAB PO SCH ×2 (09:08→20:38)
[2023-03-05] MEDS ORDERED: Empagliflozin 10 MG TAB PO SCH (10:00)
[2023-03-05] MEDS: Rosuvastatin 10 MG TAB PO SCH (20:38)
[2023-03-05] MEDS: Acetaminophen 325 MG TAB PO PRN (21:36)
[2023-03-06] MEDS: Furosemide 40 MG/4 ML VIAL SLOW IVP SCH ×2 (05:30→14:40)
[2023-03-06] MEDS: Acetaminophen 325 MG TAB PO PRN (05:37)
[2023-03-06 05:52] LABS: Anion Gap 16 mmol/L (10-20); BUN (Urea Nitrogen) 41 mg/dL (9.8-20.1); Calc. Creatinine Clearance 27 mL/min (70-130); Calcium 8.4 mg/dL (7.8-10.44); Carbon Dioxide 25 mmol/L (23-31); Chloride 92 mmol/L (98-107); Estimated GFR 21; Glucose 114 mg/dL (83-110); Potassium 3.8 mmol/L (3.5-5.1); Sodium 129 mmol/L (136-145)
[2023-03-06] MEDS ORDERED: Potassium Chloride 20 MEQ TAB PO SCH (08:45)
[2023-03-06] MEDS: Amiodarone 200 MG TAB PO SCH (08:53)
[2023-03-06] MEDS: Escitalopram Oxalate 10 mg Tablet PO SCH (08:53)
[2023-03-06] MEDS: Apixaban 2.5 MG TAB PO SCH ×2 (08:53→20:35)
[2023-03-06] MEDS: Empagliflozin 10 MG TAB PO SCH (08:53)
[2023-03-06] MEDS: Rosuvastatin 10 MG TAB PO SCH (20:35)
[2023-03-07 05:29] LABS: Anion Gap 18 mmol/L (10-20); BUN (Urea Nitrogen) 46 mg/dL (9.8-20.1); Calc. Creatinine Clearance 24 mL/min (70-130); Calcium 8.5 mg/dL (7.8-10.44); Carbon Dioxide 24 mmol/L (23-31); Chloride 96 mmol/L (98-107); Estimated GFR 18; Glucose 139 mg/dL (83-110); Potassium 4.5 mmol/L (3.5-5.1); Sodium 133 mmol/L (136-145)
[2023-03-07] MEDS: Furosemide 40 MG/4 ML VIAL SLOW IVP SCH (05:55)
[2023-03-07] MEDS: ALPRAZolam 0.25 MG TAB PO PRN (05:55)
[2023-03-07] MEDS: Amiodarone 200 MG TAB PO SCH (08:42)
[2023-03-07] MEDS: Apixaban 2.5 MG TAB PO SCH ×2 (08:42→20:18)
[2023-03-07] MEDS: Escitalopram Oxalate 10 mg Tablet PO SCH (08:42)
[2023-03-07] MEDS: Empagliflozin 10 MG TAB PO SCH (08:42)
[2023-03-07] MEDS ORDERED: Furosemide 40 MG/4 ML VIAL SLOW IVP SCH (09:00)
[2023-03-07] MEDS ORDERED: Docusate 100 MG CAP PO SCH (12:45)
[2023-03-07] MEDS ORDERED: Polyethylene Glycol 3350 17 GM Packet PO SCH (12:45)
[2023-03-07] MEDS: Rosuvastatin 10 MG TAB PO SCH (20:18)
[2023-03-07] MEDS: Docusate 100 MG CAP PO SCH (20:18)
[2023-03-07] MEDS: Polyethylene Glycol 3350 17 GM Packet PO SCH (20:19)
[2023-03-08] MEDS: ALPRAZolam 0.25 MG TAB PO PRN (03:10)
[2023-03-08] MEDS: Acetaminophen 325 MG TAB PO PRN (03:17)
[2023-03-08 05:30] LABS: Hemoglobin 10.3 g/dL (12.0-16.0); Mean Corpuscular HGB CONC 33.6 g/dL (32.0-36.0); Mean Corpuscular Hemoglobin 31.4 pg (27.0-31.0); Mean Corpuscular Volume 93.6 fl (78.0-98.0); Mean Platelet Volume 12.3 fL (7.4-10.4); Platelet Count 126 10x3/uL (130-400); RBC Distribution Width 16.7 % (11.5-14.5); Red Blood Cell (RBC) Count 3.28 mill/uL (4.20-5.40); White Blood Cell (WBC) Count 7.3 10x3/uL (4.8-10.8)
[2023-03-08 05:54] LABS: Anion Gap 14 mmol/L (10-20); BUN (Urea Nitrogen) 52 mg/dL (9.8-20.1); Calc. Creatinine Clearance 25 mL/min (70-130); Calcium 8.2 mg/dL (7.8-10.44); Carbon Dioxide 25 mmol/L (23-31); Chloride 93 mmol/L (98-107); Estimated GFR 19; Glucose 135 mg/dL (83-110); Potassium 4.3 mmol/L (3.5-5.1); Sodium 128 mmol/L (136-145)
[2023-03-08 08:19] VITALS: BP 133/69; TEMP 98
[2023-03-08] MEDS ORDERED: Furosemide 40 MG/4 ML VIAL SLOW IVP SCH (09:00)
[2023-03-08] MEDS: Escitalopram Oxalate 10 mg Tablet PO SCH (09:47)
[2023-03-08] MEDS: Docusate 100 MG CAP PO SCH (09:47)
[2023-03-08] MEDS: Polyethylene Glycol 3350 17 GM Packet PO SCH (09:47)
[2023-03-08] MEDS: Amiodarone 200 MG TAB PO SCH (09:47)
[2023-03-08] MEDS: Apixaban 2.5 MG TAB PO SCH (09:47)
[2023-03-08] MEDS: Empagliflozin 10 MG TAB PO SCH (09:47)
== END 2023-03-08 11:50 | disposition home or self-care (01) | DRG 291 ==
LOC: ERS 11:44 → 2SW 14:53 → OBSVTOIN 03-04 13:56
PROVIDERS: ADMIT Internal Medicine; ATTEND Internal Medicine
DX: I13.0 Hypertensive heart and chronic kidney disease with heart failure and stage 1 through stage 4 chronic kidney disease, or unspecified chronic kidney disease (principal); I50.43 Acute on chronic combined systolic (congestive) and diastolic (congestive) heart failure; E87.1 Hypo-osmolality and hyponatremia; N18.4 Chronic kidney disease, stage 4 (severe); I25.10 Atherosclerotic heart disease of native coronary artery without angina pectoris; E11.22 Type 2 diabetes mellitus with diabetic chronic kidney disease; E11.51 Type 2 diabetes mellitus with diabetic peripheral angiopathy without gangrene; I48.0 Paroxysmal atrial fibrillation; E66.01 Morbid (severe) obesity due to excess calories; D63.1 Anemia in chronic kidney disease; Z96.641 Presence of right artificial hip joint; Z90.710 Acquired absence of both cervix and uterus; Z90.49 Acquired absence of other specified parts of digestive tract; Z82.49 Family history of ischemic heart disease and other diseases of the circulatory system; Z88.7 Allergy status to serum and vaccine; Z79.899 Other long term (current) drug therapy; Z79.01 Long term (current) use of anticoagulants; Z95.1 Presence of aortocoronary bypass graft; Z68.36 Body mass index [BMI] 36.0-36.9, adult; Z95.0 Presence of cardiac pacemaker
CPT/HCPCS: 36415; 36416; 71045; 74018; 80048; 80053; 82728; 83690; 83880; 84484; 85025; 85027; 93005; 94760; 96374; G0378; J1940

== ENCOUNTER 2023-04-05 20:30 | Inpatient (IN) | payer OTHER ==
[2023-04-05 21:05] LABS: #Basophils 0.1 thou/uL (0.0-0.2); #Eosinphils 0.2 thou/uL (0.0-0.7); #Monocytes 0.9 thou/uL (0.11-0.59); #Neutrophils 3.1 thou/uL (1.40-6.50); %Basophils 1.3 % (0.0-1.0); %Eosinophils 3.7 % (0.0-10.0); %Lymphocytes 17.9 % (21.0-51.0); %Neutrophils 60.1 % (42.0-75.0); Hematocrit 33.3 % (36.0-47.0); Hemoglobin 10.9 g/dL (12.0-16.0); Mean Corpuscular HGB CONC 32.7 g/dL (32.0-36.0); Mean Corpuscular Hemoglobin 31.5 pg (27.0-31.0); Mean Corpuscular Volume 96.2 fl (78.0-98.0); Platelet Count 149 10x3/uL (130-400); RBC Distribution Width 16.9 % (11.5-14.5); Red Blood Cell (RBC) Count 3.46 mill/uL (4.20-5.40); White Blood Cell (WBC) Count 5.2 10x3/uL (4.8-10.8)
[2023-04-05 21:23] LABS: CRP (Inflammatory) 1.13 mg/dL (= or < 0.5)
[2023-04-05 21:24] LABS: ALT (SGPT) 12 U/L (8-55); AST (SGOT) 23 U/L (5-34); Albumin 3.6 g/dL (3.4-4.8); Alkaline Phosphatase 180 U/L (40-110); Anion Gap 13 mmol/L (10-20); BUN (Urea Nitrogen) 41 mg/dL (9.8-20.1); Bilirubin, Total 0.9 mg/dL (0.2-1.2); Calc. Creatinine Clearance 0 mL/min (70-130); Calcium 8.3 mg/dL (7.8-10.44); Carbon Dioxide 23 mmol/L (23-31); Chloride 97 mmol/L (98-107); Estimated GFR 21; Globulin 2.7 g/dL (2.4-3.5); Glucose 149 mg/dL (83-110); Potassium 4.6 mmol/L (3.5-5.1); Protein, Total 6.3 g/dL (5.8-8.1); Sodium 128 mmol/L (136-145)
[2023-04-05 21:25] LABS: Analyzer IN Cardio ER; Base Excess -2.3 mEq/L (-2.0 to +3.0); Calcium, Ionized (venous) 1.04 mmol/L (1.16-1.32); Chloride (VBG) 96 mmol/L (98-106); Hematocrit-VBG 36 % (36.0-47.0); Hemoglobin (Hb) 12.3 g/dL (11.7-16.1); Potassium (VBG) 4.59 mmol/L (3.70-5.30); Sodium 126.7 mmol/L (133-146)
[2023-04-05] MEDS ORDERED: Furosemide 100 MG/10 ML VIAL ONE (21:48)
[2023-04-05] MEDS ORDERED: Acetaminophen 650 MG Suppository PR PRN (22:20)
[2023-04-05] MEDS ORDERED: Ondansetron PF 4 MG/2 ML Vial IVP PRN (22:20)
[2023-04-05] MEDS ORDERED: Ondansetron ODT 4 MG TAB PO PRN (22:20)
[2023-04-06 01:08] VITALS: BMI 41.5
[2023-04-06] MEDS ORDERED: tiZANidine HCl 4 MG TAB PO SCH (04:15)
[2023-04-06 04:50] LABS: #Basophils 0.1 thou/uL (0.0-0.2); #Eosinphils 0.2 thou/uL (0.0-0.7); #Monocytes 0.9 thou/uL (0.11-0.59); #Neutrophils 3.3 thou/uL (1.40-6.50); %Basophils 0.9 % (0.0-1.0); %Eosinophils 3.3 % (0.0-10.0); %Monocytes 16.3 % (0.0-10.0); %Neutrophils 60.3 % (42.0-75.0); Hematocrit 30.6 % (36.0-47.0); Mean Corpuscular HGB CONC 32.7 g/dL (32.0-36.0); Mean Corpuscular Hemoglobin 31.2 pg (27.0-31.0); Mean Corpuscular Volume 95.3 fl (78.0-98.0); Mean Platelet Volume 12.1 fL (7.4-10.4); Platelet Count 131 10x3/uL (130-400); RBC Distribution Width 16.7 % (11.5-14.5); Red Blood Cell (RBC) Count 3.21 mill/uL (4.20-5.40); White Blood Cell (WBC) Count 5.5 10x3/uL (4.8-10.8)
[2023-04-06 05:18] LABS: Anion Gap 12 mmol/L (10-20); BUN (Urea Nitrogen) 41 mg/dL (9.8-20.1); Calc. Creatinine Clearance 31 mL/min (70-130); Calcium 8.2 mg/dL (7.8-10.44); Carbon Dioxide 22 mmol/L (23-31); Chloride 96 mmol/L (98-107); Estimated GFR 22; Glucose 165 mg/dL (83-110); Potassium 4.4 mmol/L (3.5-5.1); Sodium 126 mmol/L (136-145)
[2023-04-06] MEDS: Acetaminophen 325 MG TAB PO PRN ×2 (05:29→20:45)
[2023-04-06] MEDS: Furosemide 40 MG/4 ML VIAL SLOW IVP SCH ×2 (05:30→14:47)
[2023-04-06] MEDS ORDERED: Electrolyte Replacement Protocol 1 EACH FS SCH (14:15)
[2023-04-06] MEDS ORDERED: Electrolyte Replacement Protocol FS PRN (14:15)
[2023-04-06] MEDS: Apixaban 2.5 MG TAB PO SCH (20:45)
[2023-04-06] MEDS: Rosuvastatin 10 MG TAB PO SCH (20:45)
[2023-04-06] MEDS: Sacubitril 24MG/Valsartan 26 MG TAB PO SCH (20:45)
[2023-04-06] MEDS: Carvedilol 6.25 MG TAB PO SCH (20:46)
[2023-04-07 04:32] LABS: Anion Gap 13 mmol/L (10-20); BUN (Urea Nitrogen) 46 mg/dL (9.8-20.1); Calc. Creatinine Clearance 24 mL/min (70-130); Calcium 7.8 mg/dL (7.8-10.44); Carbon Dioxide 23 mmol/L (23-31); Chloride 95 mmol/L (98-107); Estimated GFR 16; Glucose 113 mg/dL (83-110); Potassium 4.8 mmol/L (3.5-5.1); Sodium 126 mmol/L (136-145)
[2023-04-07] MEDS: Furosemide 40 MG/4 ML VIAL SLOW IVP SCH ×3 (05:25→17:08)
[2023-04-07] MEDS: Metolazone 5 MG TAB PO SCH (10:34)
[2023-04-07] MEDS: Empagliflozin 10 MG TAB PO SCH (10:34)
[2023-04-07] MEDS: Amiodarone 200 MG TAB PO SCH (10:34)
[2023-04-07] MEDS: Sacubitril 24MG/Valsartan 26 MG TAB PO SCH ×2 (10:34→20:15)
[2023-04-07] MEDS: Clopidogrel Bisulfate 75 MG TAB PO SCH (10:35)
[2023-04-07] MEDS: Escitalopram Oxalate 10 mg Tablet PO SCH (10:35)
[2023-04-07] MEDS: Potassium Chloride 20 MEQ TAB PO SCH (10:35)
[2023-04-07] MEDS: Apixaban 2.5 MG TAB PO SCH ×2 (10:35→20:14)
[2023-04-07] MEDS: Carvedilol 6.25 MG TAB PO SCH ×2 (10:36→20:14)
[2023-04-07] MEDS: Polyethylene Glycol 3350 17 GM Packet PO PRN (11:15)
[2023-04-07] MEDS ORDERED: Dextrose 5% in Water 1,000 ML IV PRN (18:48)
[2023-04-07] MEDS ORDERED: HumaLOG 300 UNITS/3 ML VIAL SC PRN (18:48)
[2023-04-07] MEDS ORDERED: Dextrose 50% Abboject 50 ML SYRINGE SLOW IVP PRN (18:48)
[2023-04-07] MEDS ORDERED: Glucagon 1 MG/ML KIT IM PRN (18:48)
[2023-04-07] MEDS: Acetaminophen 325 MG TAB PO PRN (20:15)
[2023-04-07] MEDS: Rosuvastatin 10 MG TAB PO SCH (20:15)
[2023-04-08 04:28] LABS: #Basophils 0.1 thou/uL (0.0-0.2); #Eosinphils 0.2 thou/uL (0.0-0.7); #Monocytes 1.1 thou/uL (0.11-0.59); #Neutrophils 3.1 thou/uL (1.40-6.50); %Basophils 1.2 % (0.0-1.0); %Eosinophils 2.6 % (0.0-10.0); %Lymphocytes 22.8 % (21.0-51.0); %Monocytes 18.6 % (0.0-10.0); %Neutrophils 53.7 % (42.0-75.0); Hematocrit 33.1 % (36.0-47.0); Hemoglobin 10.9 g/dL (12.0-16.0); Mean Corpuscular HGB CONC 32.9 g/dL (32.0-36.0); Mean Corpuscular Hemoglobin 31.9 pg (27.0-31.0); Mean Corpuscular Volume 96.8 fl (78.0-98.0); Platelet Count 122 10x3/uL (130-400); RBC Distribution Width 17.2 % (11.5-14.5); Red Blood Cell (RBC) Count 3.42 mill/uL (4.20-5.40); White Blood Cell (WBC) Count 5.7 10x3/uL (4.8-10.8)
[2023-04-08 04:56] LABS: Hemoglobin A1c 6.3 % (4.0-6.0)
[2023-04-08 05:07] LABS: Anion Gap 16 mmol/L (10-20); BUN (Urea Nitrogen) 54 mg/dL (9.8-20.1); Calc. Creatinine Clearance 25 mL/min (70-130); Calcium 8.3 mg/dL (7.8-10.44); Carbon Dioxide 21 mmol/L (23-31); Chloride 93 mmol/L (98-107); Estimated GFR 16; Glucose 112 mg/dL (83-110); Sodium 125 mmol/L (136-145)
[2023-04-08] MEDS: Furosemide 40 MG/4 ML VIAL SLOW IVP SCH ×2 (05:11→13:44)
[2023-04-08] MEDS: Escitalopram Oxalate 10 mg Tablet PO SCH (09:58)
[2023-04-08] MEDS: Clopidogrel Bisulfate 75 MG TAB PO SCH (09:58)
[2023-04-08] MEDS: Metolazone 5 MG TAB PO SCH (09:58)
[2023-04-08] MEDS: Sacubitril 24MG/Valsartan 26 MG TAB PO SCH ×2 (09:58→21:15)
[2023-04-08] MEDS: Potassium Chloride 20 MEQ TAB PO SCH (09:58)
[2023-04-08] MEDS: Apixaban 2.5 MG TAB PO SCH ×2 (09:58→21:16)
[2023-04-08] MEDS: Amiodarone 200 MG TAB PO SCH (09:58)
[2023-04-08] MEDS: Carvedilol 6.25 MG TAB PO SCH ×2 (09:58→21:16)
[2023-04-08] MEDS: Empagliflozin 10 MG TAB PO SCH (09:59)
[2023-04-08] MEDS: Acetaminophen 325 MG TAB PO PRN (21:15)
[2023-04-08] MEDS: Rosuvastatin 10 MG TAB PO SCH (21:15)
[2023-04-09] MEDS: Furosemide 40 MG/4 ML VIAL SLOW IVP SCH (05:44)
[2023-04-09] MEDS: Metolazone 5 MG TAB PO SCH (09:54)
[2023-04-09] MEDS: Potassium Chloride 20 MEQ TAB PO SCH (09:54)
[2023-04-09] MEDS: Clopidogrel Bisulfate 75 MG TAB PO SCH (09:54)
[2023-04-09] MEDS: Empagliflozin 10 MG TAB PO SCH (09:55)
[2023-04-09] MEDS: Escitalopram Oxalate 10 mg Tablet PO SCH (09:55)
[2023-04-09] MEDS: Amiodarone 200 MG TAB PO SCH (09:55)
[2023-04-09] MEDS: Apixaban 2.5 MG TAB PO SCH ×2 (09:55→20:45)
[2023-04-09 10:50] LABS: Anion Gap 14 mmol/L (10-20); BUN (Urea Nitrogen) 62 mg/dL (9.8-20.1); Calc. Creatinine Clearance 25 mL/min (70-130); Calcium 8.3 mg/dL (7.8-10.44); Carbon Dioxide 25 mmol/L (23-31); Chloride 91 mmol/L (98-107); Estimated GFR 17; Glucose 186 mg/dL (83-110); Potassium 4.4 mmol/L (3.5-5.1); Sodium 126 mmol/L (136-145)
[2023-04-09] MEDS: Carvedilol 6.25 MG TAB PO SCH ×2 (13:43→20:45)
[2023-04-09] MEDS: Sacubitril 24MG/Valsartan 26 MG TAB PO SCH (13:44)
[2023-04-09] MEDS: Albumin 25% 25 GM/100 ML BOT IVPB SCH ×2 (13:47→17:08)
[2023-04-09] MEDS: Rosuvastatin 10 MG TAB PO SCH (20:45)
[2023-04-09] MEDS: Acetaminophen 325 MG TAB PO PRN (20:45)
[2023-04-10] MEDS: Albumin 25% 25 GM/100 ML BOT IVPB SCH ×2 (00:01→05:22)
[2023-04-10] MEDS: Acetaminophen 325 MG TAB PO PRN ×2 (00:46→21:09)
[2023-04-10 05:35] LABS: Anion Gap 17 mmol/L (10-20); BUN (Urea Nitrogen) 67 mg/dL (9.8-20.1); Calc. Creatinine Clearance 24 mL/min (70-130); Calcium 8.4 mg/dL (7.8-10.44); Carbon Dioxide 23 mmol/L (23-31); Chloride 92 mmol/L (98-107); Estimated GFR 16; Glucose 100 mg/dL (83-110); Potassium 4.8 mmol/L (3.5-5.1); Sodium 127 mmol/L (136-145)
[2023-04-10] MEDS ORDERED: Magnesium 2 GM/50 ML(in water) 2 GM in Premix Bag 1 BAG IVPB SCH (08:00)
[2023-04-10] MEDS: Amiodarone 200 MG TAB PO SCH (08:02)
[2023-04-10] MEDS: Apixaban 2.5 MG TAB PO SCH ×2 (08:02→21:10)
[2023-04-10] MEDS: Escitalopram Oxalate 10 mg Tablet PO SCH (08:02)
[2023-04-10] MEDS: Potassium Chloride 20 MEQ TAB PO SCH (08:02)
[2023-04-10] MEDS: Carvedilol 6.25 MG TAB PO SCH (08:02)
[2023-04-10] MEDS: Clopidogrel Bisulfate 75 MG TAB PO SCH (08:02)
[2023-04-10] MEDS: Furosemide 40 MG/4 ML VIAL SLOW IVP SCH (13:33)
[2023-04-10] MEDS: Rosuvastatin 10 MG TAB PO SCH (21:10)
[2023-04-10] MEDS ORDERED: HYDROcodone/Acetaminophen 5/325 mg Tablet PO SCH (23:59)
[2023-04-11 04:44] LABS: Anion Gap 16 mmol/L (10-20); BUN (Urea Nitrogen) 72 mg/dL (9.8-20.1); Calc. Creatinine Clearance 23 mL/min (70-130); Calcium 8.2 mg/dL (7.8-10.44); Carbon Dioxide 23 mmol/L (23-31); Chloride 91 mmol/L (98-107); Estimated GFR 16; Glucose 117 mg/dL (83-110); Potassium 4.6 mmol/L (3.5-5.1); Sodium 125 mmol/L (136-145)
[2023-04-11] MEDS: Furosemide 40 MG/4 ML VIAL SLOW IVP SCH (05:55)
[2023-04-11] MEDS: Albumin 25% 25 GM/100 ML BOT IVPB SCH ×3 (10:10→20:53)
[2023-04-11] MEDS: Apixaban 2.5 MG TAB PO SCH ×2 (10:11→20:54)
[2023-04-11] MEDS: Escitalopram Oxalate 10 mg Tablet PO SCH (10:11)
[2023-04-11] MEDS: Clopidogrel Bisulfate 75 MG TAB PO SCH (10:12)
[2023-04-11] MEDS: Amiodarone 200 MG TAB PO SCH (10:12)
[2023-04-11] MEDS: Furosemide 20 MG/2 ML VIAL SLOW IVP SCH (14:33)
[2023-04-11] MEDS: Rosuvastatin 10 MG TAB PO SCH (20:54)
[2023-04-11] MEDS: Acetaminophen 325 MG TAB PO PRN (21:01)
[2023-04-12] MEDS: Albumin 25% 25 GM/100 ML BOT IVPB SCH (02:56)
[2023-04-12] MEDS ORDERED: HYDROcodone/Acetaminophen 5/325 mg Tablet PO SCH (03:30)
[2023-04-12 04:48] LABS: #Eosinphils 0.1 thou/uL (0.0-0.7); #Monocytes 0.8 thou/uL (0.11-0.59); #Neutrophils 3.1 thou/uL (1.40-6.50); %Basophils 0.8 % (0.0-1.0); %Eosinophils 2.6 % (0.0-10.0); %Lymphocytes 17.7 % (21.0-51.0); %Monocytes 16.5 % (0.0-10.0); Hematocrit 27.5 % (36.0-47.0); Hemoglobin 9.5 g/dL (12.0-16.0); Mean Corpuscular HGB CONC 34.5 g/dL (32.0-36.0); Mean Corpuscular Hemoglobin 31.6 pg (27.0-31.0); Mean Corpuscular Volume 91.4 fl (78.0-98.0); Mean Platelet Volume 13.2 fL (7.4-10.4); RBC Distribution Width 16.9 % (11.5-14.5); Red Blood Cell (RBC) Count 3.01 mill/uL (4.20-5.40)
[2023-04-12 05:07] LABS: Anion Gap 17 mmol/L (10-20); BUN (Urea Nitrogen) 78 mg/dL (9.8-20.1); Calc. Creatinine Clearance 21 mL/min (70-130); Calcium 8.7 mg/dL (7.8-10.44); Carbon Dioxide 24 mmol/L (23-31); Chloride 89 mmol/L (98-107); Estimated GFR 14; Glucose 110 mg/dL (83-110); Potassium 4.5 mmol/L (3.5-5.1); Sodium 125 mmol/L (136-145)
[2023-04-12 05:10] LABS: Platelet Count 99 10x3/uL (130-400)
[2023-04-12] MEDS: Furosemide 20 MG/2 ML VIAL SLOW IVP SCH (06:23)
[2023-04-12 08:21] LABS: Free T4 (Free Thyroxine) 0.87 ng/dL (0.70-1.48)
[2023-04-12] MEDS: Clopidogrel Bisulfate 75 MG TAB PO SCH (08:38)
[2023-04-12] MEDS: Amiodarone 200 MG TAB PO SCH (08:38)
[2023-04-12] MEDS: Escitalopram Oxalate 10 mg Tablet PO SCH (08:38)
[2023-04-12] MEDS: Apixaban 2.5 MG TAB PO SCH ×2 (08:39→20:21)
[2023-04-12] MEDS ORDERED: Ipratropium/Albuterol 3 ML NEB NEB SCH (19:45)
[2023-04-12] MEDS: Rosuvastatin 10 MG TAB PO SCH (20:21)
[2023-04-13 04:37] LABS: #Eosinphils 0.2 thou/uL (0.0-0.7); #Monocytes 0.9 thou/uL (0.11-0.59); #Neutrophils 3.8 thou/uL (1.40-6.50); %Basophils 0.7 % (0.0-1.0); %Eosinophils 2.8 % (0.0-10.0); %Lymphocytes 14.5 % (21.0-51.0); %Monocytes 15.7 % (0.0-10.0); %Neutrophils 66.3 % (42.0-75.0); Hemoglobin 9.9 g/dL (12.0-16.0); Mean Corpuscular HGB CONC 34.1 g/dL (32.0-36.0); Mean Corpuscular Hemoglobin 31.4 pg (27.0-31.0); Mean Corpuscular Volume 92.1 fl (78.0-98.0); Mean Platelet Volume 13.5 fL (7.4-10.4); RBC Distribution Width 16.8 % (11.5-14.5); Red Blood Cell (RBC) Count 3.15 mill/uL (4.20-5.40); White Blood Cell (WBC) Count 5.7 10x3/uL (4.8-10.8)
[2023-04-13 04:38] LABS: Platelet Count 98 10x3/uL (130-400)
[2023-04-13 05:02] LABS: Anion Gap 15 mmol/L (10-20); BUN (Urea Nitrogen) 81 mg/dL (9.8-20.1); Calc. Creatinine Clearance 23 mL/min (70-130); Calcium 8.9 mg/dL (7.8-10.44); Carbon Dioxide 25 mmol/L (23-31); Chloride 88 mmol/L (98-107); Estimated GFR 15; Glucose 106 mg/dL (83-110); Potassium 3.9 mmol/L (3.5-5.1); Sodium 124 mmol/L (136-145)
[2023-04-13] MEDS: Levothyroxine Sodium 50 MCG TAB PO SCH (06:03)
[2023-04-13] MEDS: Polyethylene Glycol 3350 17 GM Packet PO PRN (09:09)
[2023-04-13] MEDS: Clopidogrel Bisulfate 75 MG TAB PO SCH (09:09)
[2023-04-13] MEDS: Amiodarone 200 MG TAB PO SCH (09:10)
[2023-04-13] MEDS: Escitalopram Oxalate 10 mg Tablet PO SCH (09:10)
[2023-04-13] MEDS: Apixaban 2.5 MG TAB PO SCH ×2 (09:10→20:48)
[2023-04-13] MEDS ORDERED: DOBUTamine 500 mg/250 ml 250 ML IVPB SCH (12:30)
[2023-04-13] MEDS: Acetaminophen 325 MG TAB PO PRN ×2 (13:46→20:49)
[2023-04-13] MEDS: Furosemide 20 MG/2 ML VIAL SLOW IVP SCH (13:46)
[2023-04-13] MEDS: Rosuvastatin 10 MG TAB PO SCH (20:48)
[2023-04-14] MEDS: Furosemide 20 MG/2 ML VIAL SLOW IVP SCH ×2 (05:16→12:22)
[2023-04-14] MEDS: Levothyroxine Sodium 50 MCG TAB PO SCH (05:16)
[2023-04-14] MEDS ORDERED: DOBUTamine 500 mg/250 ml 250 ML IVPB SCH (08:56)
[2023-04-14] MEDS: Amiodarone 200 MG TAB PO SCH (09:26)
[2023-04-14] MEDS: Apixaban 2.5 MG TAB PO SCH ×2 (09:26→21:02)
[2023-04-14] MEDS: Escitalopram Oxalate 10 mg Tablet PO SCH (09:26)
[2023-04-14] MEDS: Clopidogrel Bisulfate 75 MG TAB PO SCH (09:26)
[2023-04-14] MEDS ORDERED: Ipratropium/Albuterol 3 ML NEB NEB PRN (10:18)
[2023-04-14] MEDS ORDERED: Levothyroxine Sodium 50 MCG TAB PO SCH (10:54)
[2023-04-14] MEDS ORDERED: Levothyroxine Sodium 100 MCG TAB PO SCH (11:15)
[2023-04-14 11:54] LABS: Anion Gap 18 mmol/L (10-20); BUN (Urea Nitrogen) 84 mg/dL (9.8-20.1); Calc. Creatinine Clearance 19 mL/min (70-130); Calcium 8.3 mg/dL (7.8-10.44); Carbon Dioxide 21 mmol/L (23-31); Chloride 89 mmol/L (98-107); Estimated GFR 13; Glucose 126 mg/dL (83-110); Potassium 4.3 mmol/L (3.5-5.1); Sodium 124 mmol/L (136-145)
[2023-04-14] MEDS: Rosuvastatin 10 MG TAB PO SCH (21:02)
[2023-04-14] MEDS: Acetaminophen 325 MG TAB PO PRN (21:02)
[2023-04-15] MEDS: Acetaminophen 325 MG TAB PO PRN ×2 (00:02→14:50)
[2023-04-15] MEDS: ALPRAZolam 0.25 MG TAB PO PRN (00:02)
[2023-04-15] MEDS ORDERED: Furosemide 20 MG/2 ML VIAL SLOW IVP SCH (06:00)
[2023-04-15 06:12] LABS: Anion Gap 15 mmol/L (10-20); BUN (Urea Nitrogen) 89 mg/dL (9.8-20.1); Calc. Creatinine Clearance 18 mL/min (70-130); Calcium 8.4 mg/dL (7.8-10.44); Carbon Dioxide 23 mmol/L (23-31); Chloride 88 mmol/L (98-107); Estimated GFR 12; Glucose 94 mg/dL (83-110); Potassium 3.9 mmol/L (3.5-5.1); Sodium 122 mmol/L (136-145)
[2023-04-15 06:28] LABS: Free T4 (Free Thyroxine) 0.92 ng/dL (0.70-1.48); Thyroid Stimulating Hormone 13.5205 uIU/mL (0.35-4.94)
[2023-04-15] MEDS: Furosemide 40 MG/4 ML VIAL SLOW IVP SCH ×2 (06:55→14:19)
[2023-04-15] MEDS: Levothyroxine Sodium 100 MCG TAB PO SCH (06:55)
[2023-04-15] MEDS: Apixaban 2.5 MG TAB PO SCH ×2 (08:00→21:58)
[2023-04-15] MEDS: Escitalopram Oxalate 10 mg Tablet PO SCH (08:00)
[2023-04-15] MEDS: Amiodarone 200 MG TAB PO SCH (08:00)
[2023-04-15] MEDS: Clopidogrel Bisulfate 75 MG TAB PO SCH (08:00)
[2023-04-15] MEDS ORDERED: DOBUTamine 500 mg/250 ml 250 ML IVPB SCH (09:40)
[2023-04-15 17:27] LABS: Magnesium 2.3 mg/dL (1.6-2.6)
[2023-04-15] MEDS ORDERED: Tuberculin PPD 0.1 ML VIAL I-DERMAL SCH (18:00)
[2023-04-15] MEDS ORDERED: Multivitamin w/Zinc Stress 1 TAB PO PRN (18:07)
[2023-04-15] MEDS ORDERED: tiZANidine HCl 4 MG TAB PO SCH (21:00)
[2023-04-15] MEDS: Rosuvastatin 10 MG TAB PO SCH (21:58)
[2023-04-16 04:01] LABS: Anion Gap 16 mmol/L (10-20); BUN (Urea Nitrogen) 98 mg/dL (9.8-20.1); Calc. Creatinine Clearance 15 mL/min (70-130); Calcium 8.3 mg/dL (7.8-10.44); Carbon Dioxide 24 mmol/L (23-31); Chloride 87 mmol/L (98-107); Estimated GFR 9; Glucose 109 mg/dL (83-110); Potassium 4.6 mmol/L (3.5-5.1); Sodium 122 mmol/L (136-145)
[2023-04-16] MEDS ORDERED: NOREPINEPHRINE 8 MG/250 ML-D5W 250 ML ONE (04:17)
[2023-04-16 04:23] LABS: HBSAB Concentration Less than 8.00 mIU/mL; HBSAg Index 0.25 S/CO (0-0.99); Hep B Core Total Ab Non-Reactive (NonReactive); Hep B Core Total Index 0.18 S/CO (0-0.79); Hep B Surf AB Non-Reactive (NonReactive); Hep B Surf Ag Non-Reactive S/CO (NonReactive); Hep C IgG Ab Non-Reactive S/CO (NonReactive); Hep C Index 0.19 S/CO (0-0.79)
[2023-04-16 04:26] VITALS: BP 88/40
[2023-04-16 04:44] LABS: Actual Bicarbonate (HCO3a) 26.7 mEq/L (22-28); Base Excess (BEa) 0.9 mEq/L (-2.0 to +3.0); Calcium, Ionized (arterial) 1.05 mmol/L (1.12-1.30); Carboxyhemoglobin (COHb) 1.2 gm% (0.0-3.0); Hematocrit-ABG 32 % (36.0-47.0); Hemoglobin (Hb) 10.9 g/dL (12.0-16.0); Potassium - ABG Lab 4.55 mmol/L (3.70-5.30); pH, Arterial 7.363 (7.35-7.45)
[2023-04-16 04:47] LABS: Puncture Site RBR
[2023-04-16 04:58] LABS: #Eosinphils 0.1 thou/uL (0.0-0.7); #Monocytes 0.7 thou/uL (0.11-0.59); #Neutrophils 2.2 thou/uL (1.40-6.50); %Basophils 0.5 % (0.0-1.0); %Eosinophils 2.7 % (0.0-10.0); %Lymphocytes 17.1 % (21.0-51.0); %Monocytes 18.7 % (0.0-10.0); %Neutrophils 60.7 % (42.0-75.0); Hematocrit 26.5 % (36.0-47.0); Mean Corpuscular Hemoglobin 31.4 pg (27.0-31.0); Mean Corpuscular Volume 92.3 fl (78.0-98.0); Mean Platelet Volume 13.5 fL (7.4-10.4); RBC Distribution Width 16.6 % (11.5-14.5); Red Blood Cell (RBC) Count 2.87 mill/uL (4.20-5.40); White Blood Cell (WBC) Count 3.7 10x3/uL (4.8-10.8)
[2023-04-16 05:04] LABS: Platelet Count 97 10x3/uL (130-400)
[2023-04-16] MEDS ORDERED: Furosemide 40 MG/4 ML VIAL SLOW IVP SCH (05:30)
[2023-04-16] MEDS ORDERED: Ipratropium/Albuterol 3 ML NEB NEB PRN (05:51)
[2023-04-16] MEDS: Furosemide 40 MG/4 ML VIAL SLOW IVP SCH (07:43)
[2023-04-16] MEDS: Apixaban 2.5 MG TAB PO SCH ×2 (09:00→20:29)
[2023-04-16] MEDS: Amiodarone 200 MG TAB PO SCH (09:59)
[2023-04-16] MEDS: Famotidine/PF 20 mg/2ml Vial SLOW IVP SCH (10:57)
[2023-04-16] MEDS: Escitalopram Oxalate 10 mg Tablet PO SCH (11:37)
[2023-04-16] MEDS: Clopidogrel Bisulfate 75 MG TAB PO SCH (11:37)
[2023-04-16] MEDS: Levothyroxine Sodium 100 MCG TAB PO SCH (11:49)
[2023-04-16] MEDS: NOREPINEPHRINE 8 MG/250 ML-D5W 250 ML IVPB SCH (18:34)
[2023-04-16] MEDS: Rosuvastatin 10 MG TAB PO SCH (20:29)
[2023-04-16] MEDS: Midodrine HCl 5 MG TAB PO SCH (20:29)
[2023-04-16] MEDS: ALPRAZolam 0.25 MG TAB PO PRN (23:40)
[2023-04-17] MEDS: Acetaminophen 325 MG TAB PO PRN (00:17)
[2023-04-17 03:54] LABS: #Eosinphils 0.1 thou/uL (0.0-0.7); #Monocytes 1.2 thou/uL (0.11-0.59); #Neutrophils 4.6 thou/uL (1.40-6.50); %Basophils 0.4 % (0.0-1.0); %Eosinophils 1.2 % (0.0-10.0); %Lymphocytes 13.9 % (21.0-51.0); %Monocytes 17.7 % (0.0-10.0); %Neutrophils 66.5 % (42.0-75.0); Hematocrit 26.5 % (36.0-47.0); Hemoglobin 8.7 g/dL (12.0-16.0); Mean Corpuscular HGB CONC 32.8 g/dL (32.0-36.0); Mean Corpuscular Hemoglobin 30.3 pg (27.0-31.0); Mean Corpuscular Volume 92.3 fl (78.0-98.0); Mean Platelet Volume 12.3 fL (7.4-10.4); Platelet Count 126 10x3/uL (130-400); RBC Distribution Width 16.4 % (11.5-14.5); Red Blood Cell (RBC) Count 2.87 mill/uL (4.20-5.40); White Blood Cell (WBC) Count 6.9 10x3/uL (4.8-10.8)
[2023-04-17 04:20] LABS: Anion Gap 17 mmol/L (10-20); BUN (Urea Nitrogen) 76 mg/dL (9.8-20.1); Calc. Creatinine Clearance 17 mL/min (70-130); Calcium 8.4 mg/dL (7.8-10.44); Carbon Dioxide 24 mmol/L (23-31); Chloride 90 mmol/L (98-107); Estimated GFR 11; Glucose 144 mg/dL (83-110); Magnesium 2.1 mg/dL (1.6-2.6); Phosphorus 5.4 mg/dL (2.3-4.7); Potassium 4.5 mmol/L (3.5-5.1); Sodium 126 mmol/L (136-145)
[2023-04-17] MEDS: Levothyroxine Sodium 100 MCG TAB PO SCH (05:29)
[2023-04-17] MEDS: Midodrine HCl 5 MG TAB PO SCH ×3 (08:12→20:07)
[2023-04-17] MEDS: Apixaban 2.5 MG TAB PO SCH ×2 (08:12→20:07)
[2023-04-17] MEDS: Escitalopram Oxalate 10 mg Tablet PO SCH (08:13)
[2023-04-17] MEDS: Famotidine/PF 20 mg/2ml Vial SLOW IVP SCH (08:13)
[2023-04-17] MEDS: Clopidogrel Bisulfate 75 MG TAB PO SCH (08:13)
[2023-04-17] MEDS: Amiodarone 200 MG TAB PO SCH (08:13)
[2023-04-17 12:45] LABS: O2 Tension (PaO2), arterial 38.9 mmHg (> 60.0)
[2023-04-17] MEDS: Rosuvastatin 10 MG TAB PO SCH (20:08)
[2023-04-18] MEDS: Acetaminophen 325 MG TAB PO PRN ×2 (01:04→08:08)
[2023-04-18] MEDS: Levothyroxine Sodium 100 MCG TAB PO SCH (05:47)
[2023-04-18] MEDS: NOREPINEPHRINE 8 MG/250 ML-D5W 250 ML IVPB SCH (05:47)
[2023-04-18] MEDS: Amiodarone 200 MG TAB PO SCH (08:07)
[2023-04-18] MEDS: Apixaban 2.5 MG TAB PO SCH (08:07)
[2023-04-18] MEDS: Clopidogrel Bisulfate 75 MG TAB PO SCH (08:07)
[2023-04-18] MEDS: Midodrine HCl 5 MG TAB PO SCH ×2 (08:07→16:54)
[2023-04-18] MEDS: Escitalopram Oxalate 10 mg Tablet PO SCH (08:08)
[2023-04-18] MEDS ORDERED: READ PPD TEST SITE PO SCH (09:00)
[2023-04-18 13:28] VITALS: TEMP 97.9
[2023-04-18] MEDS ORDERED: Morphine 2 MG/ML VIAL SLOW IVP SCH (17:06)
[2023-04-18] MEDS ORDERED: Acetaminophen 325 MG TAB PO PRN (17:07)
[2023-04-18] MEDS ORDERED: Morphine 20 MG/ML Oral Solution (ROXANOL) SL PRN (19:04)
[2023-04-19] MEDS ORDERED: Famotidine/PF 20 mg/2ml Vial SLOW IVP SCH (09:00)
== END 2023-04-18 18:57 | disposition hospice, home (50) | DRG 291 ==
LOC: ERS 20:30 → 2NO 22:09 → OBSVTOIN 04-06 16:12 → CCU 04-16 04:27
PROVIDERS: ADMIT Student in an Organized Health Care Education/Training Program; ATTEND Internal Medicine
PROC: 30233J1 Transfusion of Nonautologous Serum Albumin into Peripheral Vein, Percutaneous Approach (ICD-10-PCS; 2023-04-09)
PROC: 06HY33Z Insertion of Infusion Device into Lower Vein, Percutaneous Approach (ICD-10-PCS; principal; 2023-04-16)
PROC: 5A1D70Z Performance of Urinary Filtration, Intermittent, Less than 6 Hours Per Day (ICD-10-PCS; 2023-04-16)
PROC: 4A033R1 Measurement of Arterial Saturation, Peripheral, Percutaneous Approach (ICD-10-PCS; 2023-04-16)
PROC: 3E033XZ Introduction of Vasopressor into Peripheral Vein, Percutaneous Approach (ICD-10-PCS; 2023-04-16)
DX: I13.0 Hypertensive heart and chronic kidney disease with heart failure and stage 1 through stage 4 chronic kidney disease, or unspecified chronic kidney disease (principal); I50.43 Acute on chronic combined systolic (congestive) and diastolic (congestive) heart failure; J96.01 Acute respiratory failure with hypoxia; R57.0 Cardiogenic shock; N18.6 End stage renal disease; E87.1 Hypo-osmolality and hyponatremia; Z68.41 Body mass index [BMI] 40.0-44.9, adult; N17.9 Acute kidney failure, unspecified; I95.9 Hypotension, unspecified; I25.10 Atherosclerotic heart disease of native coronary artery without angina pectoris; E11.51 Type 2 diabetes mellitus with diabetic peripheral angiopathy without gangrene; Z51.5 Encounter for palliative care; D63.1 Anemia in chronic kidney disease; Z96.641 Presence of right artificial hip joint; F41.9 Anxiety disorder, unspecified; F32.A Depression, unspecified; E11.22 Type 2 diabetes mellitus with diabetic chronic kidney disease; I48.0 Paroxysmal atrial fibrillation; E66.01 Morbid (severe) obesity due to excess calories; Z88.7 Allergy status to serum and vaccine; Z79.899 Other long term (current) drug therapy; Z79.01 Long term (current) use of anticoagulants; Z95.1 Presence of aortocoronary bypass graft; Z95.0 Presence of cardiac pacemaker; Z90.49 Acquired absence of other specified parts of digestive tract; Z90.710 Acquired absence of both cervix and uterus; Z63.1 Problems in relationship with in-laws
CPT/HCPCS: 36415; 36416; 71045; 71046; 74176; 80048; 80053; 82306; 82805; 83036; 83605; 83690; 83735; 83880; 83970; 84100; 84439; 84443; 84481; 84484; 85025; 86140; 86580; 86704; 87040; 90935; 93005; 93010; 93306; 93798; 94640; 96374; 96376; 97139; G0257; G0378; J1250; J1642; J1940; J7620; P9047; Q0162; S0028